=== PATIENT | male | born 1965 | race Caucasian/White ===

== ENCOUNTER 2018-07-28 06:19 | Observation (INO) | payer BC ==
[2018-07-28 06:47] LABS: Arterial Blood Carboxyhemoglob 1.9 % (0-1.5); Blood Gas Oxyhemoglobin 88.9 % (94-97); Blood O2 Saturation 91.5 % (92-98.5)
[2018-07-28] MEDS ORDERED: ALBUTEROL 2.5 MG/3 ML NEB SOL ONE (06:52)
[2018-07-28] MEDS ORDERED: predniSONE 20 MG TAB ONE ×2 (06:52→07:19)
[2018-07-28] MEDS ORDERED: IPRATROPIUM BROM 0.5MG/2.5ML ONE (06:52)
[2018-07-28] MEDS ORDERED: FAMOTIDINE 20 MG TAB ONE (06:52)
[2018-07-28] MEDS ORDERED: NA CHLORIDE 0.9% 1,000 ML ONE (06:52)
[2018-07-28 07:14] LABS: Absolute Lymphocytes (CBC) 1.1 K/uL (0.7-4.9); Absolute Monocytes 0.7 K/uL (0.1-1.3); Absolute Neutrophil 7.5 K/uL (1.8-8.0); Basophils % 0.5 % (0-1.3); Eosinophils % 2.6 % (0-4.4); Hematocrit 45.8 % (39.6-49.0); Lymphocytes % 11.6 % (15.3-44.8); MPV 9.4 fL (7.6-11.3); Monocytes % 7.6 % (3.3-12.3); RBC Red Blood Cell Count 4.78 M/uL (4.33-5.43)
[2018-07-28 07:17] LABS: Protime INR 1.08
[2018-07-28] MEDS ORDERED: MAGNESIUM SULFATE 1 gm IVPB 1 GM/100 ML BAG IV ONE (07:34)
[2018-07-28] MEDS ORDERED: MORPHINE 4 MG/ML SYR ONE (07:34)
[2018-07-28 08:06] LABS: ALT/SGPT 42 U/L (12-78); AST/SGOT 36 U/L (15-37); Albumin 3.5 g/dL (3.4-5.0); Alkaline Phosphatase 82 U/L (45-117); BUN Blood Urea Nitrogen 8 mg/dL (7-18); Bicarbonate 25 mmol/L (21-32); Bilirubin Direct 0.1 mg/dL (0-0.2); Bilirubin Total 0.5 mg/dL (0.2-1.0); Glucose Level 149 mg/dL (74-106); Magnesium 2.2 mg/dL (1.8-2.4); NT PRO-BNP 40 pg/mL (<125); Potassium 3.9 mmol/L (3.5-5.1); Protein, Total 7.2 g/dL (6.4-8.2); Sodium Level 136 mmol/L (136-145); Troponin (Emerg Dept Use Only) < 0.02 ng/mL (0.0-0.045)
[2018-07-28] MEDS ORDERED: FUROSEMIDE 20 MG/ 2ML VIAL ONE (09:03)
--- NOTE | 2018-07-28 09:15 | RAD REPORT ---
EXAM DESCRIPTION: CT - Chest For Pe Angio - 07/28/2018 8:52 am CLINICAL HISTORY: Cough and congestion/shortness of breath COMPARISON: None. TECHNIQUE: Dynamically enhanced axial 3 mm thick images of the chest were obtained during administra tion of <100> mL Isovue 370 IV contrast. Coronal and oblique reconstruction images were generated and reviewed. Exam utilizes a protocol for optimal evaluation of pulmonary arterial tree. Maximum intensity projections 3D imaging was utilized All CT scans are performed using dose optimization technique as appropriate and may include automated exposure control or mA/KV adjustment according to patient size. FINDINGS: A pulmonary embolus is not seen. A thoracic aortic aneurysm is not noted. A pleural effusion is not seen. A pericardial effusion is not seen. A lung consolidation is not present. Paraseptal emphysema. Minimal right basilar atelectasis IMPRESSION: Negative for a pulmonary embolism.
--- NOTE | 2018-07-28 10:05 | EDPHYS ---
Physician Documentation [facility] Name: Emory Lynn Age: 52 yrs Sex: Male : 1965 Arrival Date: 07/28/2018 Time: 06:22 Bed 4 Private MD: ED Physician Marcio Samaniego HPI: 07/28 06:38 This 52 yrs old Male presents to ER via Ambulatory with complaints of Cough, snw Breathing Difficulty. 06:38 The patient or guardian reports airway noise, cough, difficulty breathing. Onset: The snw symptoms/episode began/occurred suddenly, yesterday, and became worse last night. Severity of symptoms: At their worst the symptoms were severe, this morning. Associated signs and symptoms: The patient has no apparent associated signs or symptoms. It is unknown whether or not the patient has had similar symptoms in the past. The patient has not recently seen a physician, the patient's primary care provider is Dr. Dr. Dubon. hx of HTN and high cholesterol, no dx COPD but "I've smoked all my life". Historical: - Allergies: 06:36 No Known Allergies; tl2 - Home Meds: 06:36 Simvastatin Oral [Active]; BP med [Active]; tl2 - PMHx: 06:36 Hyperlipidemia; Hypertension; tl2 - Immunization history:: Adult Immunizations up to date. - Social history:: Smoking status: Patient uses tobacco products, smokes one pack cigarettes per day. - Ebola Screening: : No symptoms or risks identified at this time. ROS: 06:38 Constitutional: Negative for fever, chills, and weight loss, Eyes: Negative for injury, snw pain, redness, and discharge. 06:38 Neck: Negative for injury, pain, and swelling, Cardiovascular: Negative for chest pain, palpitations, and edema. 06:38 Abdomen/GI: Negative for abdominal pain, nausea, vomiting, diarrhea, and constipation, Back: Negative for injury and pain, : Negative for injury, bleeding, discharge, and swelling, MS/Extremity: Negative for injury and deformity, Skin: Negative for injury, rash, and discoloration, Neuro: Negative for headache, weakness, numbness, tingling, and seizure. 06:38 ENT: Positive for scratchy throat yesterday. 06:38 Respiratory: Positive for cough, dyspnea on exertion, shortness of breath, at rest. wheezing. Exam: 06:35 Head/Face: Normocephalic, atraumatic. Eyes: Pupils equal round and reactive to light, snw extra-ocular motions intact. Lids and lashes normal. Conjunctiva and sclera are non-icteric and not injected. Cornea within normal limits. Periorbital areas with no swelling, redness, or edema. ENT: Nares patent. No nasal discharge, no septal abnormalities noted. Tympanic membranes are normal and external auditory canals are clear. Oropharynx with no redness, swelling, or masses, exudates, or evidence of obstruction, uvula midline. Mucous membranes moist. Neck: Trachea midline, no thyromegaly or masses palpated, and no cervical lymphadenopathy. Supple, full range of motion without nuchal rigidity, or vertebral point tenderness. No Meningismus. Chest/axilla: Normal chest wall appearance and motion. Nontender with no deformity. No lesions are appreciated. 06:35 Back: No spinal tenderness. No costovertebral tenderness. Full range of motion. Skin: Warm, dry with normal turgor. Mottled color with no rashes, no lesions, and no evidence of cellulitis. MS/ Extremity: Pulses equal, no cyanosis. Neurovascular intact. Full, normal range of motion. Neuro: Awake and alert, GCS 15, oriented to person, place, time, and situation. Cranial nerves II-XII grossly intact. Motor strength 5/5 in all extremities. Sensory grossly intact. Cerebellar exam normal. Normal gait. 06:35 Constitutional: The patient appears alert, awake, anxious, obese. 06:35 Cardiovascular: Rate: tachycardic, Rhythm: regular, Pulses: no pulse deficits are appreciated, Edema: 1+ edema to level of left ankle, left foot, right ankle and right foot. 06:35 Respiratory: moderate respiratory distress is noted, Respirations: labored breathing, that is mild, accessory muscle usage, that is mild, prolonged exhalation, that is moderate, shallow respirations, that is moderate, tachypnea, Breath sounds: + upper airway congestion. wheezing: expiratory that is moderate, is heard diffusely, headbutted by cow 2 days ago, knocked to ground, tenderness to left lateral chest at mid axillary line. 06:35 Abdomen/GI: Inspection: obese Bowel sounds: normal, Palpation: abdomen is soft and non-tender. Vital Signs: 06:36 BP 170 / 83; Pulse 97; Resp 22; Temp 98.1(O); Pulse Ox 91% on 3 lpm NC; Weight 102.06 tl2 kg; Height 6 ft. 4 in. (193.04 cm); Pain 0/10; 07:00 BP 151 / 84; Pulse 96; Resp 22; Pulse Ox 93% on 3 lpm NC; jb1 08:00 BP 127 / 68; Pulse 87; Resp 20; Pulse Ox 92% on 3 lpm NC; jb1 09:10 BP 145 / 75; Pulse 94; Resp 21; Pulse Ox 92% on 4 lpm NC; jb1 10:30 BP 141 / 69; Pulse 79; Resp 24 S; Pulse Ox 94% on 4 lpm NC; jl7 11:30 BP 141 / 81; Pulse 83; Resp 22; Pulse Ox 92% on 4 lpm NC; jl7 12:31 BP 133 / 66; Pulse 86; Resp 22; Pulse Ox 93% on 4 lpm NC; jl7 06:36 Body Mass Index 27.39 (102.06 kg, 193.04 cm) tl2 MDM: 06:31 Patient medically screened. snw 10:04 Data reviewed: vital signs, nurses notes. Data interpreted: Pulse oximetry: on 2L(s) snw per nasal canula, is 92 %. Interpretation: hypoxia. Plan: O2 by NC applied. Counseling: I had a detailed discussion with the patient and/or guardian regarding: the historical points, exam findings, and any diagnostic results supporting the discharge/admit diagnosis, the presence of at least one elevated blood pressure reading (>120/80) during this emergency department visit, lab results, radiology results, the need for further work-up and treatment in the hospital. Physician consultation: Quynh Cason MD was called at 09:30, was contacted at 09:30, regarding admission, to the telemetry unit. 07/28 06:30 Order name: Basic Metabolic Panel; Complete Time: 08:20 snw 07/28 06:30 Order name: CBC with Diff; Complete Time: 07:16 snw 07/28 06:30 Order name: LFT's; Complete Time: 08:20 snw 07/28 06:30 Order name: Magnesium; Complete Time: 08:20 snw 07/28 06:30 Order name: NT PRO-BNP; Complete Time: 08:20 snw 07/28 06:30 Order name: PT-INR; Complete Time: 07:23 snw 07/28 06:30 Order name: Troponin (emerg Dept Use Only); Complete Time: 08:20 snw 07/28 06:30 Order name: XRAY Chest (1 view); Complete Time: 10:32 snw 07/28 06:30 Order name: Procalcitonin; Complete Time: 08:24 snw 07/28 06:30 Order name: Lactate; Complete Time: 08:20 snw 07/28 06:30 Order name: ABG snw 07/28 06:30 Order name: Flu; Complete Time: 08:20 snw 07/28 06:30 Order name: Blood Culture Adult (2) snw 07/28 06:48 Order name: ABG Arterial Blood Gas; Complete Time: 06:50 EDMS 07/28 06:30 Order name: EKG; Complete Time: 06:32 snw 07/28 06:30 Order name: Cardiac monitoring; Complete Time: 06:40 snw 07/28 06:30 Order name: EKG - Nurse/Tech; Complete Time: 07:38 snw 07/28 06:30 Order name: IV Saline Lock; Complete Time: 06:49 snw 07/28 06:30 Order name: Labs collected and sent; Complete Time: 06:49 snw 07/28 06:30 Order name: O2 Per Protocol; Complete Time: 06:49 snw 07/28 06:30 Order name: O2 Sat Monitoring; Complete Time: 06:49 snw 07/28 07:26 Order name: CT Chest For PE Angio; Complete Time: 09:21 snw Administered Medications: 06:48 Drug: NS 0.9% 1000 ml Route: IV; Rate: 125 ml/hr; Site: right antecubital; tl2 12:34 Follow up: IV Status: Infusion continued upon admission jl7 06:49 Drug: Albuterol - atroVENT (3:1) (2.5 mg - 0.5 mg) 3 ml Route: Nebulizer; tl2 07:15 Follow up: Response: No adverse reaction; No change in condition jl7 07:05 Drug: predniSONE 60 mg Route: PO; tl2 09:24 Follow up: Response: No adverse reaction jl7 07:05 Drug: Pepcid 20 mg Route: PO; tl2 08:00 Follow up: Response: No adverse reaction jl7 07:30 Drug: morphine 4 mg Route: IVP; Site: right antecubital; jl7 08:00 Follow up: Response: No adverse reaction; Marked relief of symptoms jl7 07:36 Drug: Magnesium Sulfate 1 grams Route: IVPB; Infused Over: 1 hrs; Site: right jl7 antecubital; 08:38 Follow up: IV Status: Completed infusion aa5 08:57 Drug: Lasix 20 mg Route: IVP; Site: right antecubital; aa5 10:00 Follow up: Response: No adverse reaction jl7 Disposition: 07/28/18 10:04 Hospitalization ordered by Quynh Cason for Observation. Preliminary diagnosis are Chronic obstructive pulmonary disease, unspecified, Hypoxemia. - Bed requested for Telemetry/MedSurg (observation). - Status is Observation. jl7 - Condition is Stable. - Problem is new. - Symptoms are unchanged. UTI on Admission? No Addendum: 08/07/2018 11:16 Co-signature as Attending Physician, Marcio Samaniego MD I agree with the assessment and c hodge plan of care. Signatures: Dispatcher [employer] EDChacha Barlow RN Marcio Pedraza MD MD cha Therrien, Shelly, MOTOR AND CONTR[employer]S TESTER-C [employer] TESTER-Csnw Melodie Sanchez, RN RN aa5 Tyra Young, RN RN tl2 Iván Smith RN RN jl7 Corrections: (The following items were deleted from the chart) 07/28 12:26 10:04 Hospitalization Ordered by Quynh Cason MD for Observation. Preliminary dw diagnosis is Chronic obstructive pulmonary disease, unspecified; Hypoxemia. Bed requested for Telemetry/MedSurg (observation). Status is Observation. Condition is Stable. Problem is new. Symptoms are unchanged. UTI on Admission? No. snw 13:50 12:26 07/28/2018 10:04 Hospitalization Ordered by Quynh Cason MD for Observation. jl7 Preliminary diagnosis is Chronic obstructive pulmonary disease, unspecified; Hypoxemia. Bed requested for Telemetry/MedSurg (observation). Status is Observation. Condition is Stable. Problem is new. Symptoms are unchanged. UTI on Admission? No. dw
--- NOTE | 2018-07-28 10:05 | ER ---
Nurse's Notes [facility] Name: Emory Lynn Age: 52 yrs Sex: Male : 1965 Arrival Date: 07/28/2018 Time: : Bed 4 Private MD: Diagnosis: Chronic obstructive pulmonary disease, unspecified;Hypoxemia Presentation: 07/28 06:33 Presenting complaint: Patient states: cough, body aches, and congestion started tl2 yesterday afternoon, breathing difficulty and shortness of breath started around 0400 this morning. O2 86% on RA. Transition of care: patient was not received from another setting of care. Onset of symptoms was July 27, 2018 at 12:00. Risk Assessment: Do you want to hurt yourself or someone else? Patient reports no desire to harm self or others. Initial Sepsis Screen: Does the patient meet any 2 criteria? No. Patient's initial sepsis screen is negative. Does the patient have a suspected source of infection? No. Patient's initial sepsis screen is negative. Care prior to arrival: None. 06:33 Method Of Arrival: Ambulatory tl2 06:33 Acuity: JENISE 2 tl2 Triage Assessment: 06:36 General: Appears in no apparent distress. uncomfortable, Behavior is calm, cooperative, tl2 appropriate for age. Pain: Denies pain. Neuro: Level of Consciousness is awake, alert, obeys commands, Oriented to person, place, time, situation. Cardiovascular: Denies chest pain. Respiratory: Reports shortness of breath cough that is labored breathing Respiratory effort is even, labored, using tripod position, Breath sounds with crackles Breath sounds with rales Onset: The symptoms/episode began/occurred gradually, the patient has moderate shortness of breath. GI: No signs and/or symptoms were reported involving the gastrointestinal system. : No signs and/or symptoms were reported regarding the genitourinary system. Derm: Skin is pink, warm \T\ dry. Historical: - Allergies: 06:36 No Known Allergies; tl2 - Home Meds: 06:36 Simvastatin Oral [Active]; BP med [Active]; tl2 - PMHx: 06:36 Hyperlipidemia; Hypertension; tl2 - Immunization history:: Adult Immunizations up to date. - Social history:: Smoking status: Patient uses tobacco products, smokes one pack cigarettes per day. - Ebola Screening: : No symptoms or risks identified at this time. Screenin:38 Abuse screen: Denies threats or abuse. Nutritional screening: No deficits noted. tl2 Tuberculosis screening: No symptoms or risk factors identified. Fall Risk None identified. Assessment: 06:39 Cardiovascular: Rhythm is sinus rhythm. tl2 06:39 Respiratory: Airway is patent. tl2 06:39 General: see triage assessment. tl2 07:00 General: Appears distressed, uncomfortable, Behavior is cooperative, appropriate for jl7 age, anxious. Pain: Denies pain. Neuro: Level of Consciousness is awake, alert, obeys commands, Oriented to person, place, time, situation. Cardiovascular: Heart tones present Patient's skin is warm and dry. Rhythm is sinus rhythm. Respiratory: Airway is patent Respiratory effort is even, labored, Respiratory pattern is symmetrical, tachypnea Breath sounds are coarse bilaterally. Breath sounds with wheezes bilaterally. GI: No signs and/or symptoms were reported involving the gastrointestinal system. : No signs and/or symptoms were reported regarding the genitourinary system. EENT: No signs and/or symptoms were reported regarding the EENT system. Derm: Skin is pink, warm \T\ dry. Musculoskeletal: No signs and/or symptoms reported regarding the musculoskeletal system. 08:00 Reassessment: Patient appears in no apparent distress at this time. Patient and/or jl7 family updated on plan of care and expected duration. Pain level reassessed. Patient is alert, oriented x 3, equal unlabored respirations, skin warm/dry/pink. Patient states feeling better. Patient states symptoms have improved. 09:00 Reassessment: Patient appears in no apparent distress at this time. No changes from jl7 previously documented assessment. Patient and/or family updated on plan of care and expected duration. Pain level reassessed. Patient is alert, oriented x 3, equal unlabored respirations, skin warm/dry/pink. 10:00 Reassessment: Patient appears in no apparent distress at this time. No changes from jl7 previously documented assessment. Patient and/or family updated on plan of care and expected duration. Pain level reassessed. Patient is alert, oriented x 3, equal unlabored respirations, skin warm/dry/pink. Patient denies pain at this time. 10:55 Reassessment: Patient appears in no apparent distress at this time. Patient and/or jl7 family updated on plan of care and expected duration. Pain level reassessed. Patient is alert, oriented x 3, equal unlabored respirations, skin warm/dry/pink. 12:00 Reassessment: No changes from previously documented assessment. Patient and/or family jl7 updated on plan of care and expected duration. Pain level reassessed. Patient is alert, oriented x 3, equal unlabored respirations, skin warm/dry/pink. assisted pt to bathroom. Vital Signs: 06:36 BP 170 / 83; Pulse 97; Resp 22; Temp 98.1(O); Pulse Ox 91% on 3 lpm NC; Weight 102.06 tl2 kg; Height 6 ft. 4 in. (193.04 cm); Pain 0/10; 07:00 BP 151 / 84; Pulse 96; Resp 22; Pulse Ox 93% on 3 lpm NC; jb1 08:00 BP 127 / 68; Pulse 87; Resp 20; Pulse Ox 92% on 3 lpm NC; jb1 09:10 BP 145 / 75; Pulse 94; Resp 21; Pulse Ox 92% on 4 lpm NC; jb1 10:30 BP 141 / 69; Pulse 79; Resp 24 S; Pulse Ox 94% on 4 lpm NC; jl7 11:30 BP 141 / 81; Pulse 83; Resp 22; Pulse Ox 92% on 4 lpm NC; jl7 12:31 BP 133 / 66; Pulse 86; Resp 22; Pulse Ox 93% on 4 lpm NC; jl7 06:36 Body Mass Index 27.39 (102.06 kg, 193.04 cm) tl2 ED Course: 06:22 Patient arrived in ED. ag3 06:28 Dolly Castillo FNP-C is PHCP. snw 06:28 Marcio Samaniego MD is Attending Physician. snw 06:34 Triage completed. tl2 06:36 Arm band placed on right wrist. tl2 06:38 Patient has correct armband on for positive identification. Bed in low position. Call tl2 light in reach. Side rails up X 1. Adult w/ patient. 06:38 Inserted saline lock: 20 gauge in right antecubital area, using aseptic technique. tl2 Blood collected. placed by basil Baldwin. 07:00 pvc monitor on. Pulse ox on. NIBP on. jl7 07:00 Initial lab(s) drawn, by ED staff, sent to lab. jl7 07:06 X-ray completed. Portable x-ray completed in exam room. Patient tolerated procedure sg4 well. 07:07 XRAY Chest (1 view) In Process Unspecified. EDMS 07:22 Iván Smith RN is Primary Nurse. jl7 08:51 CT completed. Patient moved to CT via wheelchair. Patient moved back from CT. bq 08:52 CT Chest For PE Angio In Process Unspecified. EDMS 10:02 Quynh Cason MD is Hospitalizing Provider. snw 13:47 No provider procedures requiring assistance completed. Patient admitted, IV remains in jl7 place. intact, No redness/swelling at site. Administered Medications: 06:48 Drug: NS 0.9% 1000 ml Route: IV; Rate: 125 ml/hr; Site: right antecubital; tl2 12:34 Follow up: IV Status: Infusion continued upon admission jl7 06:49 Drug: Albuterol - atroVENT (3:1) (2.5 mg - 0.5 mg) 3 ml Route: Nebulizer; tl2 07:15 Follow up: Response: No adverse reaction; No change in condition jl7 07:05 Drug: predniSONE 60 mg Route: PO; tl2 09:24 Follow up: Response: No adverse reaction jl7 07:05 Drug: Pepcid 20 mg Route: PO; tl2 08:00 Follow up: Response: No adverse reaction jl7 07:30 Drug: morphine 4 mg Route: IVP; Site: right antecubital; jl7 08:00 Follow up: Response: No adverse reaction; Marked relief of symptoms jl7 07:36 Drug: Magnesium Sulfate 1 grams Route: IVPB; Infused Over: 1 hrs; Site: right jl7 antecubital; 08:38 Follow up: IV Status: Completed infusion aa5 08:57 Drug: Lasix 20 mg Route: IVP; Site: right antecubital; aa5 10:00 Follow up: Response: No adverse reaction jl7 Outcome: 10:04 Decision to Hospitalize by Provider. snw 13:48 Admitted to Med/surg accompanied by tech, via wheelchair, room 224, with oxygen, with [facility] chart, Report called to JORGE De Los Santos 13:49 Condition: stable jl7 13:49 Discharge instructions given to patient, Instructed on the need for admit, Demonstrated understanding of instructions. 13:50 Patient left the ED. jl7 Signatures: Dispatcher [employer] EDLaurent Moreno jb1 Dolly Castillo, DOUGHNUT BATTER MIXER-C DOUGHNUT BATTER MIXER-Claudiaw Mikaela Odom Audri, RN RN aa5 Tyra Young RN RN tl2 Iván Smith RN RN jl7 Beth Manrique3 Vira Yi 4 Corrections: (The following items were deleted from the chart) 09:18 09:10 BP 145 / 75; Pulse 94bpm; Resp 21bpm; Pulse Ox 92% 3 lpm Nasal Cannula; jb1 jb1
--- NOTE | 2018-07-28 10:30 | RAD REPORT ---
[facility] CLINICAL HISTORY: Chest pain COMPARISON: 2014 FINDINGS: The lungs are hyperaerated consistent COPD. Minimal right basilar atelectasis. Left lung appears clear. The heart is normal size
--- NOTE | 2018-07-28 12:26 | P.HP ---
Certification for Inpatient Patient admitted to: Observation With expected LOS: <2 Midnights Patient will require the following post-hospital care: None Practitioner: I am a practitioner with admitting privileges, knowledge of patient current condition, hospital course, and medical plan of care. Services: Services provided to patient in accordance with Admission requirements found in Title 42 Section 412.3 of the Code of Federal Regulations Patient History Date of Service: 07/28/18 Reason for admission: SOB History of Present Illness: 52 y/o M with significant PMHx presented to ER with SOB x 3 days. Progressively got worse and now with Tachypenia and Hypoxia. C/o Nasal congestion and Chest Congestion. Non productive cough. + smoking. No diagnosis of COPD and does not take medication. Denies Fever, chills or any other symptoms. Allergies No Known Allergies Allergy (Unverified 07/16/12 05:13) Home medications list reviewed: Yes - Past Medical/Surgical History Has patient received pneumonia vaccine in the past: Yes Diabetic: No -: COPD Physical Examination - Studies Laboratory Data (last 24 hrs) 07/28/18 07:33: Sodium 136, Potassium 3.9, BUN 8, Creatinine 0.61, Glucose 149 H , Magnesium 2.2, Total Bilirubin 0.5, AST 36, ALT 42, Alkaline Phosphatase 82 07/28/18 06:54: PT 12.8 H, INR 1.08 07/28/18 06:54: WBC 9.7, Hgb 15.7, Hct 45.8, Plt Count 164 Microbiology Data (last 24 hrs): 07/28/18 07:15 Nasopharnyx Influenza Type A Antigen Screen - Final 07/28/18 07:15 Nasopharnyx Influenza Type B Antigen Screen - Final Assessment and Plan - Problems (Diagnosis) (1) COPD exacerbation Current Visit: Yes Status: Acute Plan: COPD excerbation. New diagnosis of COPD. Not on medication -Duonebs, Steriods and NC -Smoking cessation provided -Mucinex for nasal congestion (2) Tobacco abuse Current Visit: Yes Status: Acute Plan: Smoking Cessation provided > 10 mins (3) Obesity Current Visit: Yes Status: Chronic Qualifiers: Obesity type: due to excess calories Obesity classification: adult class 2 (BMI 35 - 39.9) Serious obesity comorbidity presence: without serious comorbidity Body mass index: unspecified BMI Qualified Code(s): E66.09 - Other obesity due to excess calories (4) Struck by cow, initial encounter Current Visit: Yes Status: Acute - Plan Admit to Med surg for COPD exacerbation not on treatment outpt. Discharge Plan: Home Plan to discharge in: 48 Hours - Advance Directives Does patient have a Living Will: No Does patient have a Durable POA for Healthcare: No - Code Status/Comfort Care Code Status Assessed: Yes Critical Care: No
[2018-07-28] MEDS ORDERED: ONDANSETRON 4 MG/2 ML VIAL IV PRN (14:47)
[2018-07-28] MEDS ORDERED: ACETAMINOPHEN 500 MG TAB PO PRN (14:47)
[2018-07-28] MEDS: IPRATROPIUM BROM 0.5MG/2.5ML NEB SCH ×2 (15:00→19:37)
[2018-07-28] MEDS: ALBUTEROL 2.5 MG/3 ML NEB SOL NEB SCH ×2 (15:00→19:38)
[2018-07-28] MEDS: GUAIFENESIN 600 MG SA TAB PO SCH ×2 (15:26→20:42)
[2018-07-28] MEDS: METHYLPREDNISOLONE 125 MG INJ IV SCH ×2 (15:33→17:40)
[2018-07-28] MEDS ORDERED: INFLUENZA VACCINE (for 3y+) 0.5 ML DOSE IMVAC ONE (16:00)
[2018-07-28 16:38] VITALS: BMI 28.5
[2018-07-28 17:36] LABS: Urine Appearance CLEAR; Urine Bilirubin NEGATIVE (NEG); Urine Blood NEGATIVE (NEG); Urine Color YELLOW; Urine Glucose 2+ (NEG); Urine Protein NEGATIVE (NEG); Urine Specific Gravity >=1.030 (1.005-1.030); Urine pH 6.5 (5.0-7.0)
[2018-07-28 19:12] LABS: Urine Microscopic Reflex NO UMIC
[2018-07-29] MEDS: METHYLPREDNISOLONE 125 MG INJ IV SCH ×3 (00:07→11:43)
[2018-07-29] MEDS: ALBUTEROL 2.5 MG/3 ML NEB SOL NEB SCH ×2 (02:00→07:45)
[2018-07-29] MEDS: IPRATROPIUM BROM 0.5MG/2.5ML NEB SCH ×2 (02:00→07:45)
[2018-07-29 05:52] LABS: Absolute Lymphocytes (CBC) 0.6 K/uL (0.7-4.9); Absolute Monocytes 0.4 K/uL (0.1-1.3); Absolute Neutrophil 11.2 K/uL (1.8-8.0); Basophils % 0.2 % (0-1.3); Lymphocytes % 5.1 % (15.3-44.8); MPV 9.4 fL (7.6-11.3); Monocytes % 2.9 % (3.3-12.3); RBC Red Blood Cell Count 4.55 M/uL (4.33-5.43)
[2018-07-29 06:06] LABS: BUN Blood Urea Nitrogen 13 mg/dL (7-18); Bicarbonate 27 mmol/L (21-32); Glucose Level 186 mg/dL (74-106); Sodium Level 135 mmol/L (136-145)
[2018-07-29] MEDS: GUAIFENESIN 600 MG SA TAB PO SCH (08:43)
--- NOTE | 2018-07-29 10:25 | P.CNS ---
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 tickle in his throat bodyaches worsening shortness of breath ended up here in the emergency room no prior history of obstructive airways disease no prior coronary artery disease he has been treated for hypertension and hyperlipidemia denies any baseline shortness of breath or chest pain doing much better Allergies No Known Allergies Allergy (Verified 07/28/18 14:54) Home Medications: Amlodipine [Norvasc*] 1 tab PO DAILY 07/28/18 Montelukast [Singulair*] 1 tab PO DAILY 07/28/18 Simvastatin 1 tab PO DAILY 07/28/18 hydroCHLOROthiazide [Hydrochlorothiazide] 1 tab PO DAILY 07/28/18 - Past Medical/Surgical History Diabetic: No -: HTN -: neck sx -: rotator calf sx -: knee sx - Family History Mother Notes: breast cancer Father Medical History: Diabetes - Social History Smoking Status: Current every day smoker Alcohol use: Yes CD- Drugs: No Caffeine use: Yes Place of Residence: Home Review of Systems 10-point ROS is otherwise unremarkable Physical Examination Temp Pulse Resp BP Pulse Ox 97.5 F 80 20 141/72 H 96 07/29/18 08:00 07/29/18 08:00 07/29/18 08:00 07/29/18 08:00 07/29/18 08:00 General: Alert, Oriented x3 HEENT: Atraumatic Neck: Supple Respiratory: Clear to auscultation bilaterally Cardiovascular: No edema, Regular rate/rhythm Gastrointestinal: Normal bowel sounds, Soft and benign - Problems (1) COPD exacerbation Current Visit: Yes Status: Acute Plan: Patient is 52 years of age admitted with acute dyspnea possible COPD exacerbation CT scan of the chest did not show any evidence of pulmonary embolism are pneumonia he does have a paraseptal emphysema in the upper lobes patient has been instructed to quit smoking labs reviews chemistries unremarkable check room air pulse ox patient can be discharged home low-dose prednisone 10 mg twice a day for 5 days and use a bronchodilator on a p.r.n. basis to follow up with me in 2-4 weeks will arrange for a the patient to have outpatient pulmonary function testing including yearly CT scan off through the ages 53 for lung cancer screening the console to stops smoking
[2018-07-29 12:05] VITALS: O2SAT 95
[2018-07-29] MEDS ORDERED: INFLUENZA VACCINE (for 3y+) 0.5 ML DOSE IMVAC ONE (13:00)
[2018-07-29 13:13] VITALS: BP 154/83; TEMP 97.6
--- NOTE | 2018-07-29 14:31 | P.DS ---
Admission Date: 07/28/18 Discharge Date: 07/29/18 Disposition: ROUTINE DISCHARGE Discharge Condition: GOOD Reason for Admission: SOB - Problems (1) COPD exacerbation Current Visit: Yes Status: Acute (2) Tobacco abuse Current Visit: Yes Status: Acute (3) Obesity Current Visit: Yes Status: Chronic Qualifiers: Obesity type: due to excess calories Obesity classification: adult class 2 (BMI 35 - 39.9) Serious obesity comorbidity presence: without serious comorbidity Body mass index: unspecified BMI Qualified Code(s): E66.09 - Other obesity due to excess calories (4) Struck by cow, initial encounter Current Visit: Yes Status: Acute Brief History of Present Illness: 52 y/o M with significant PMHx presented to ER with SOB x 3 days. Progressively got worse and now with Tachypenia and Hypoxia. C/o Nasal congestion and Chest Congestion. Non productive cough. + smoking. No diagnosis of COPD and does not take medication. Denies Fever, chills or any other symptoms. Hospital Course: Overall during the hospital stay patient remained stable Patient was initially admitted to the hospital for COPD exacerbation. Was kept due on duo nebs, steroids, oxygen while here in the hospital. The Dr Johnson from pulmonology was consulted who recommended the patient can get bronchodilators to be taken at home along with p.r.n. inhalers. The patient was prescribed p.r.n. inhalers along with Symbicort to be taken at home. Was also prescribed prednisone to be taken for next 5 days. Patient then was discharged home under stable condition once there was improvement in his breathing and was able to wean off of oxygen. Patient did mention he would not use oxygen even if he needs it at home. Patient states that he will follow up with Dr. johnson outpatient. Patient was educated extensively on the disease process and the need to continue taking his inhalers as prescribed along with the steroids. Vital Signs/Physical Exam: Temp Pulse Resp BP Pulse Ox 97.6 F 93 H 17 154/83 H 88 L 07/29/18 12:00 07/29/18 12:00 07/29/18 12:00 07/29/18 12:00 07/29/18 12:00 General: Alert, In no apparent distress HEENT: Atraumatic, PERRLA, EOMI Neck: Supple, JVD not distended Respiratory: Clear to auscultation bilaterally, Normal air movement Cardiovascular: Regular rate/rhythm, Normal S1 S2 Gastrointestinal: Normal bowel sounds, No tenderness Musculoskeletal: No tenderness Integumentary: No rashes Neurological: Normal speech, Normal tone, Normal affect Lymphatics: No axilla or inguinal lymphadenopathy Laboratory Data at Discharge: WBC 12.2 K/uL (4.3-10.9) H D 07/29/18 05:12 Hgb 15.0 g/dL (13.6-17.9) 07/29/18 05:12 Hct 44.0 % (39.6-49.0) 07/29/18 05:12 Plt Count 170 K/uL (152-406) 07/29/18 05:12 PT 12.8 SECONDS (9.5-12.5) H 07/28/18 06:54 INR 1.08 07/28/18 06:54 Sodium 135 mmol/L (136-145) L 07/29/18 05:12 Potassium 4.0 mmol/L (3.5-5.1) 07/29/18 05:12 BUN 13 mg/dL (7-18) 07/29/18 05:12 Creatinine 0.61 mg/dL (0.55-1.3) 07/29/18 05:12 Glucose 186 mg/dL (74-106) H 07/29/18 05:12 Magnesium 2.2 mg/dL (1.8-2.4) 07/28/18 07:33 Total Bilirubin 0.5 mg/dL (0.2-1.0) 07/28/18 07:33 AST 36 U/L (15-37) 07/28/18 07:33 ALT 42 U/L (12-78) 07/28/18 07:33 Alkaline Phosphatase 82 U/L (45-117) 07/28/18 07:33 Home Medications: Amlodipine [Norvasc*] 1 tab PO DAILY 07/28/18 Montelukast [Singulair*] 1 tab PO DAILY 07/28/18 Simvastatin 1 tab PO DAILY 07/28/18 hydroCHLOROthiazide [Hydrochlorothiazide] 1 tab PO DAILY 07/28/18 Budesonide/Formoterol Fumarate [Symbicort 80-4.5 Mcg Inhaler] 2 puff IH BID #1 hfa.aer.ad 07/29/18 predniSONE [Deltasone*] 10 mg PO BID #10 tab 07/29/18 New Medications: Budesonide/Formoterol Fumarate [Symbicort 80-4.5 Mcg Inhaler] 2 puff IH BID #1 hfa.aer.ad predniSONE [Deltasone*] 10 mg PO BID #10 tab Diet: Regular Activity: Ad cait Followup: Helio Suarez MD [ACTIVE - CAN ADMIT] - 1 Week
--- NOTE | 2018-07-29 17:29 | EKG ---
Test Date: 2018-07-28 Test Time: 07:16:02 Pattern Stamper: DAVEY MEASUREMENT RESULTS: Intervals: Rate: 100 NJ: 142 QRSD: 94 QT: 378 QTc: 487 Doyle: P: 72 NJ: 142 QRS: 69 T: 70 INTERPRETIVE STATEMENTS: Normal sinus rhythm Prolonged QT Abnormal ECG Compared to ECG 10/04/2010 05:38:14 Prolonged QT interval now present Incomplete right bundle-branch block no longer present Electronically Signed On 07-29-18 17:18:21 QUALITY CONTROL OPERATOR by Pacheco Palmer
== END 2018-07-29 14:00 | disposition home or self-care (01) ==
LOC: ER 06:19 → ERHOLD 11:56 → 2ND 13:44
PROVIDERS: ADMIT Family Medicine; ATTEND Family Medicine
DX: J44.1 Chronic obstructive pulmonary disease with (acute) exacerbation (principal); I10 Essential (primary) hypertension; F17.210 Nicotine dependence, cigarettes, uncomplicated; E66.9 Obesity, unspecified; Z68.28 Body mass index [BMI] 28.0-28.9, adult; Z23 Encounter for immunization
CPT/HCPCS: 36415; 71045; 71275; 80048; 80076; 81003; 82805; 82962; 83605; 83735; 83880; 84145; 84484; 85025; 85610; 87040; 87804; 93005; 94640; 94760; 96361; 96365; 96375; 99285; G0008; G0378; J1940; J2930; J3475; J7030; J7512; Q2035; Q9967

== ENCOUNTER 2022-05-28 13:02 | Inpatient (IN) | payer BC ==
--- OUTSIDE RECORDS SUMMARY | 2022-05-28 13:08 | XMS REPORT | Continuity of Care Document ---
:1965 Author Organization [facility] t Address [address] [place] [address] Care Team Providers Name Role Phone Sirena Dubon Attending Clinician Unavailable Payers Payer Name Policy Type Policy Number Effective Date Expiration Date S shawanda [employer] 6 [id number] 2021 Common Spiri t [employer] of 00:00:[address] - [facility] Problems Condition Condition Condition Status Onset Resolution Last Treating Co mments Source Name Details Category Date Date Treatment Clinician Date Acute tic Acute tic Problem Active Com mon disorder disorder Spirit - [facility] [id number] Essential Problem Active Comm on hypertensi Spirit on [facility] [id number] Cigarette Problem Active Comm on nicotine Spirit dependence - [facility] [id number] Pure Problem Active Common hyperchole Spirit sterolemia - [facility] [id number] Simple Problem Active Common chronic Spirit bronchitis [facility] [place] [id number] Encounter Problem Active Com mon for Spirit general - [facility] adult [facility] examinatio Medica l n with Center abnormal findings [id number] Controlled Problem Active Co mmon type 2 Spirit diabetes - [facility] mellitus [facility] complicati Medica l on, Center without long-term current use of insulin Gastroesop Gastroesop Problem Active C ommon hageal hageal Spirit reflux reflux - [facility] disease [facility] Medica l not Center specified [id number] Difficulty Problem Active Co mmon sleeping [facility] [id number] Obesity, Problem Active Comm on morbid, Spirit BMI [facility] 40.0-49.9 [facility] [id number] Wheezing Problem Active Commo n [facility] History of History of Problem Active C ommon polyp of colon [facility] colon polyps [facility] Allergic Non-season Problem Active Com mon rhinitis al [facility] allergic - [facility], [facility] [id number] Chronic Problem Active Comm on obstructiv [facility] e [facility] pulmonary [facility] with Medical (acute) Center lower respirator y infection [id number] Benign Problem Active Commo n prostatic [facility] hyperplasi [facility] a with [facility] urinary Medical tract Center symptoms [id number] COPD Problem Active Common exacerbati [facility] on [facility] Allergies, Adverse Reactions, Alerts This patient has no known allergies or adverse reactions. Social History Social Habit Start Date Stop Date Quantity Comments Source History of Tobacco Use Co mmon [facility] Sex Assigned At Com mon [facility] Smoking Status Start Date Stop Date Source Former Smoker 2021-10-04 00:00:00 2021-10-04 00:00:00 [facility] [place] Medications Ordered Filled Start Stop Current Ordering Indication Dosage Frequency Signature Comments Components Source Medication Medication Date Date Medication? Clinician (SIG) Name Name Clotrimazol Clotrimazol 2020-08- No TID Clotrimazo e 10 MG e 10 MG 08-17 le 10 MG 00:00: 00:00 00 :00 Vibramycin Vibramycin 2020- No 1{capsu QD Vibramycin 100 MG 100 MG 04-09 le} 100 MG 00:00: 00:00 00 :00 Kenalog Kenalog No 40mg Common (Triamcinol (Triamcinol 8-31 S pirit one) one) 00:00: - [facility]I 00 [facility] DuoNeb DuoNeb No 3{ml_as QID DuoNeb 0.5-2.5 (3) 0.5-2.5 (3) 7-07 _needed 0.5-2.5 MG/3ML MG/3ML 00:00: } (3) MG/3ML 00 DuoNeb DuoNeb No 3{ml_as QID DuoNeb Comm on 0.5-2.5 (3) 0.5-2.5 (3) 7-07 _needed 0.5-2.5 Spirit MG/3ML MG/3ML 00:00: } (3) MG/3ML - C HI 00 [facility] DuoNeb DuoNeb No 3{ml_as QID DuoNeb 0.5-2.5 (3) 0.5-2.5 (3) 7-07 _needed 0.5-2.5 MG/3ML MG/3ML 00:00: } (3) MG/3ML 00 DuoNeb DuoNeb No 3{ml_as QID DuoNeb 0.5-2.5 (3) 0.5-2.5 (3) 7-07 _needed 0.5-2.5 MG/3ML MG/3ML 00:00: } (3) MG/3ML 00 DuoNeb DuoNeb No 3{ml_as QID DuoNeb 0.5-2.5 (3) 0.5-2.5 (3) 7-07 _needed 0.5-2.5 MG/3ML MG/3ML 00:00: } (3) MG/3ML 00 DuoNeb DuoNeb No 3{ml_as QID DuoNeb 0.5-2.5 (3) 0.5-2.5 (3) 7-07 _needed 0.5-2.5 MG/3ML MG/3ML 00:00: } (3) MG/3ML 00 DuoNeb DuoNeb No 3{ml_as QID DuoNeb 0.5-2.5 (3) 0.5-2.5 (3) 7-07 _needed 0.5-2.5 MG/3ML MG/3ML 00:00: } (3) MG/3ML 00 Doxycycline Doxycycline 2021-0 No 1{capsu BID Doxycyclin Monohydrate Monohydrate 6-16 le} e 100 MG 100 MG 00:00: Monohydrat 00 e 100 MG predniSONE predniSONE 2020-0 No QD predniSONE 10 MG 10 MG 6-16 10 MG 00:00: 00 Doxycycline Doxycycline 0 No 1{capsu BID Doxycyclin Monohydrate Monohydrate 6-16 le} e 100 MG 100 MG 00:00: Monohydrat 00 e 100 MG predniSONE predniSONE 2020-0 No QD predniSONE 10 MG 10 MG 6-16 10 MG 00:00: 00 Doxycycline Doxycycline 0 No 1{capsu BID Doxycyclin Monohydrate Monohydrate 6-16 le} e 100 MG 100 MG 00:00: Monohydrat 00 e 100 MG predniSONE predniSONE 0 No QD predniSONE 10 MG 10 MG 6-16 10 MG 00:00: 00 Doxycycline Doxycycline 0 No 1{capsu BID Doxycyclin Monohydrate Monohydrate 6-16 le} e 100 MG 100 MG 00:00: Monohydrat 00 e 100 MG predniSONE predniSONE 2020-0 No QD predniSONE 10 MG 10 MG 6-16 10 MG 00:00: 00 predniSONE predniSONE 2020-0 No QD predniSONE 10 MG 10 MG 6-16 10 MG 00:00: 00 Doxycycline Doxycycline 0 No 1{capsu BID Doxycyclin Monohydrate Monohydrate 6-16 le} e 100 MG 100 MG 00:00: Monohydrat 00 e 100 MG predniSONE predniSONE 2020-0 No QD predniSONE Common 10 MG 10 MG 6-16 10 MG Spirit 00:00: - [facility] 00 [facility] Doxycycline Doxycycline No 1{capsu BID Doxycyclin Common Monohydrate Monohydrate 6-16 le} e S pirit 100 MG 100 MG 00:00: Monohydrat - C HI 00 e 100 MG [facility] predniSONE predniSONE 2020-0 No QD predniSONE 10 MG 10 MG 6-16 10 MG 00:00: 00 Doxycycline Doxycycline 0 No 1{capsu BID Doxycyclin Monohydrate Monohydrate 6-16 le} e 100 MG 100 MG 00:00: Monohydrat 00 e 100 MG Doxycycline Doxycycline 0 No 1{capsu BID Doxycyclin Monohydrate Monohydrate 6-16 le} e 100 MG 100 MG 00:00: Monohydrat 00 e 100 MG predniSONE predniSONE 0 No QD predniSONE 10 MG 10 MG 6-16 10 MG 00:00: 00 predniSONE predniSONE 0 No QD predniSONE 10 MG 10 MG 6-16 10 MG 00:00: 00 Doxycycline Doxycycline 2020-0 No 1{capsu BID Doxycyclin Monohydrate Monohydrate 6-16 le} e 100 MG 100 MG 00:00: Monohydrat 00 e 100 MG Baclofen Baclofen 2019-0 2020- No Na Dubon 1 tablet Common 04-14 with food Spirit 00:00: 00:00 or milk - CHI 00 :00 [facility] PredniSONE PredniSONE 2019-0 Yes Na Dubon 2 tablets Common 7-10 dailyx 5 Spirit 00:00: then [address] daily x 5 [facility] predniSONE predniSONE 2020-0 No QD predniSONE 20 MG 20 MG 7-10 20 MG 00:00: 00 predniSONE predniSONE 2020-0 No QD predniSONE 20 MG 20 MG 7-10 20 MG 00:00: 00 predniSONE predniSONE 2020-0 No QD predniSONE 20 MG 20 MG 7-10 20 MG 00:00: 00 predniSONE predniSONE 2020-0 No QD predniSONE 20 MG 20 MG 7-10 20 MG 00:00: 00 predniSONE predniSONE 2020-0 No QD predniSONE 20 MG 20 MG 7-10 20 MG 00:00: 00 predniSONE predniSONE 2020-0 No QD predniSONE Common 20 MG 20 MG 7-10 20 MG Spirit 00:00: [facility]I [facility] predniSONE predniSONE 2020-0 No QD predniSONE 20 MG 20 MG 7-10 20 MG 00:00: 00 predniSONE predniSONE 2020-0 No QD predniSONE 20 MG 20 MG 7-10 20 MG 00:00: 00 predniSONE predniSONE 2020-0 No QD predniSONE 20 MG 20 MG 7-10 20 MG 00:00: 00 PredniSONE PredniSONE 2020-0 No QD PredniSONE 20 MG 20 MG 7-10 20 MG 00:00: 00 PredniSONE PredniSONE 2020-0 No QD PredniSONE 20 MG 20 MG 7-10 20 MG 00:00: 00 Montelukast Montelukast 2019- Yes Na Dubon 1 tablet Common Sodium Sodium 2-13 Spirit 00:00: - CHI [facility] Flonase Flonase 2019- Yes Na Dubon 2 spray in Common 2-13 each Spirit 00:00: nostril - CHI [facility] Flonase 50 Flonase 50 2018-08 No 2{spray QD Flonase 50 MCG/ACT MCG/ACT 2-13 _in_eac MCG/ACT 00:00: h_nostr 00 il} Flonase 50 Flonase 50 2018-08 No 2{spray QD Flonase 50 MCG/ACT MCG/ACT 2-13 _in_eac MCG/ACT 00:00: h_nostr 00 il} Flonase 50 Flonase 50 2018-08 No 2{spray QD Flonase 50 MCG/ACT MCG/ACT 2-13 _in_eac MCG/ACT 00:00: h_nostr 00 il} Flonase 50 Flonase 50 2018-08 No 2{spray QD Flonase 50 MCG/ACT MCG/ACT 2-13 _in_eac MCG/ACT 00:00: h_nostr 00 il} Flonase 50 Flonase 50 2018-08 No 2{spray QD Flonase 50 MCG/ACT MCG/ACT 2-13 _in_eac MCG/ACT 00:00: h_nostr 00 il} Flonase 50 Flonase 50 2018-08 No 2{spray QD Flonase 50 Common MCG/ACT MCG/ACT 2-13 _in_eac MCG/ACT Spi rit 00:00: h_nostr - CHI 00 il} [facility] Flonase 50 Flonase 50 2018-08 No 2{spray QD Flonase 50 MCG/ACT MCG/ACT 2-13 _in_eac MCG/ACT 00:00: h_nostr 00 il} Flonase 50 Flonase 50 2018-08 No 2{spray QD Flonase 50 MCG/ACT MCG/ACT 2-13 _in_eac MCG/ACT 00:00: h_nostr 00 il} Flonase 50 Flonase 50 2018-08 No 2{spray QD Flonase 50 MCG/ACT MCG/ACT 2-13 _in_eac MCG/ACT 00:00: h_nostr 00 il} Flonase 50 Flonase 50 2018-08 No 2{spray QD Flonase 50 MCG/ACT MCG/ACT 2-13 _in_eac MCG/ACT 00:00: h_nostr 00 il} Flonase 50 Flonase 50 2018-08 No 2{spray QD Flonase 50 MCG/ACT MCG/ACT 2-13 _in_eac MCG/ACT 00:00: h_nostr 00 il} [facility] No 40mg Common (Triamcinol (Triamcinol 7-23 S pirit one) one) 00:00: - CHI 00 [facility] Singulair Singulair Yes Na Dubon TAKE ONE Common TABLET BY [facility] MOUTH - CHI DAILY [facility] Norvasc Norvasc Yes Na Dubon take one Co mmon tablet by [facility] mouth - CHI daily [facility] Zocor Zocor Yes Na Dubon take one Common tablet by [facility] daily [facility] Ventolin Ventolin Yes Na Dubon 1 puff as Common HFA HFA needed [facility] Omeprazole Omeprazole Yes Na Dubon 1 capsule Common [facility] Stiolto Stiolto Yes Na Dubon 2 puffs Com mon Respimat Respimat [facility] Metformin Metformin Yes Na Dubon 1 tablet Common HCl HCl with meals [facility] Hydrochloro Hydrochloro Yes Na Dubon TAKE ONE Common thiazide thiazide TABLET BY Sp arnie [facility] DAILY [facility] Atorvastati Atorvastati Yes Na Dubon 1 tablet Common n Calcium n Calcium Spiri [facility] Metformin Metformin No 1{table BID Metformin HCl 1000 MG HCl 1000 MG t_with_ HCl 1000 a_meal} MG Norvasc 2.5 Norvasc 2.5 No Norvasc MG MG 2.5 MG Tamsulosin Tamsulosin No 1{capsu QD Tamsulosin HCl 0.4 MG HCl 0.4 MG le} HCl 0.4 MG Cyclobenzap Cyclobenzap No Cyclobenza rine HCl 10 rine HCl 10 elmer HCl MG MG 10 MG Incruse Incruse No 1{puff} QD Incruse Ellipta Ellipta Ellipta 62.5 62.5 62.5 MCG/INH MCG/INH MCG/INH Ventolin Ventolin No 1{puff_ 6xD Ventolin HFA 108 (90 HFA 108 (90 as_need HFA 108 Base) Base) ed} (90 Base) MCG/ACT MCG/ACT MCG/ACT Cyclobenzap Cyclobenzap No Cyclobenza rine HCl 10 rine HCl 10 elmer HCl MG MG 10 MG hydroCHLORO hydroCHLORO No hydroCHLOR thiazide thiazide Othiazide 12.5 MG 12.5 MG 12.5 MG Montelukast Montelukast No Montelukas Sodium 10 Sodium 10 t Sodium MG MG 10 MG metFORMIN metFORMIN No 1{table BID metFORMIN HCl 1000 MG HCl 1000 MG t_with_ HCl 1000 a_meal} MG Norvasc 2.5 Norvasc 2.5 No Norvasc MG MG 2.5 MG Symbicort Symbicort No 2{puffs BID Symbicort 160-4.5 160-4.5 } 160-4.5 MCG/ACT MCG/ACT MCG/ACT Atorvastati Atorvastati No 1{table QD Atorvastat n Calcium n Calcium t} in Calcium 40 MG 40 MG 40 MG Singulair Singulair No Singulair 10 MG 10 MG 10 MG Incruse Incruse No 1{puff} QD Incruse Ellipta Ellipta Ellipta 62.5 62.5 62.5 MCG/INH MCG/INH MCG/INH Atorvastati Atorvastati No 1{table QD Atorvastat n Calcium n Calcium t} in Calcium 40 MG 40 MG 40 MG Zocor 40 MG Zocor 40 MG No Zocor 40 MG Omeprazole Omeprazole No 1{capsu QD Omeprazole 40 MG 40 MG le} 40 MG Norvasc 2.5 Norvasc 2.5 No QD Norvasc 2.5 Stiolto Stiolto No 2{puffs QD Stiolto Respimat Respimat } Respimat 2.5mcg/2.5m 2.5mcg/2.5m 2.5mcg/2.5 cg cg mcg hydroCHLORO hydroCHLORO No QD hydroCHLOR thiazide thiazide Othiazide 12.5 MG 12.5 MG 12.5 MG Jardiance Jardiance No 1{table QD Jardiance 25 MG 25 MG t} 25 MG Tamsulosin Tamsulosin No 1{capsu QD Tamsulosin HCl 0.4 MG HCl 0.4 MG le} HCl 0.4 MG Ventolin Ventolin No 1{puff_ 6xD Ventolin HFA 108 (90 HFA 108 (90 as_need HFA 108 Base) Base) ed} (90 Base) MCG/ACT MCG/ACT MCG/ACT Cyclobenzap Cyclobenzap No Cyclobenza rine HCl 10 rine HCl 10 elmer HCl MG MG 10 MG hydroCHLORO hydroCHLORO No hydroCHLOR thiazide thiazide Othiazide 12.5 MG 12.5 MG 12.5 MG Montelukast Montelukast No Montelukas Sodium 10 Sodium 10 t Sodium MG MG 10 MG metFORMIN metFORMIN No 1{table BID metFORMIN HCl 1000 MG HCl 1000 MG t_with_ HCl 1000 a_meal} MG Norvasc 2.5 Norvasc 2.5 No Norvasc MG MG 2.5 MG Symbicort Symbicort No 2{puffs BID Symbicort 160-4.5 160-4.5 } 160-4.5 MCG/ACT MCG/ACT MCG/ACT Atorvastati Atorvastati No 1{table QD Atorvastat n Calcium n Calcium t} in Calcium 40 MG 40 MG 40 MG Singulair Singulair No Singulair 10 MG 10 MG 10 MG Incruse Incruse No 1{puff} QD Incruse Ellipta Ellipta Ellipta 62.5 62.5 62.5 MCG/INH MCG/INH MCG/INH Atorvastati Atorvastati No 1{table QD Atorvastat n Calcium n Calcium t} in Calcium 40 MG 40 MG 40 MG Zocor 40 MG Zocor 40 MG No Zocor 40 MG Omeprazole Omeprazole No 1{capsu QD Omeprazole 40 MG 40 MG le} 40 MG Norvasc 2.5 Norvasc 2.5 No QD Norvasc 2.5 Stiolto Stiolto No 2{puffs QD Stiolto Respimat Respimat } Respimat 2.5mcg/2.5m 2.5mcg/2.5m 2.5mcg/2.5 cg cg mcg hydroCHLORO hydroCHLORO No QD hydroCHLOR thiazide thiazide Othiazide 12.5 MG 12.5 MG 12.5 MG Jardiance Jardiance No 1{table QD Jardiance 25 MG 25 MG t} 25 MG Tamsulosin Tamsulosin No 1{capsu QD Tamsulosin HCl 0.4 MG HCl 0.4 MG le} HCl 0.4 MG Ventolin Ventolin No 1{puff_ 6xD Ventolin HFA 108 (90 HFA 108 (90 as_need HFA 108 Base) Base) ed} (90 Base) MCG/ACT MCG/ACT MCG/ACT Cyclobenzap Cyclobenzap No Cyclobenza rine HCl 10 rine HCl 10 elmer HCl MG MG 10 MG hydroCHLORO hydroCHLORO No hydroCHLOR thiazide thiazide Othiazide 12.5 MG 12.5 MG 12.5 MG Montelukast Montelukast No Montelukas Sodium 10 Sodium 10 t Sodium MG MG 10 MG metFORMIN metFORMIN No 1{table BID metFORMIN HCl 1000 MG HCl 1000 MG t_with_ HCl 1000 a_meal} MG Norvasc 2.5 Norvasc 2.5 No Norvasc MG MG 2.5 MG Symbicort Symbicort No 2{puffs BID Symbicort 160-4.5 160-4.5 } 160-4.5 MCG/ACT MCG/ACT MCG/ACT Atorvastati Atorvastati No 1{table QD Atorvastat n Calcium n Calcium t} in Calcium 40 MG 40 MG 40 MG Singulair Singulair No Singulair 10 MG 10 MG 10 MG Incruse Incruse No 1{puff} QD Incruse Ellipta Ellipta Ellipta 62.5 62.5 62.5 MCG/INH MCG/INH MCG/INH Atorvastati Atorvastati No 1{table QD Atorvastat n Calcium n Calcium t} in Calcium 40 MG 40 MG 40 MG Zocor 40 MG Zocor 40 MG No Zocor 40 MG Omeprazole Omeprazole No 1{capsu QD Omeprazole 40 MG 40 MG le} 40 MG Norvasc 2.5 Norvasc 2.5 No QD Norvasc 2.5 Stiolto Stiolto No 2{puffs QD Stiolto Respimat Respimat } Respimat 2.5mcg/2.5m 2.5mcg/2.5m 2.5mcg/2.5 cg cg mcg hydroCHLORO hydroCHLORO No QD hydroCHLOR thiazide thiazide Othiazide 12.5 MG 12.5 MG 12.5 MG Jardiance Jardiance No 1{table QD Jardiance 25 MG 25 MG t} 25 MG Tamsulosin Tamsulosin No 1{capsu QD Tamsulosin HCl 0.4 MG HCl 0.4 MG le} HCl 0.4 MG Ventolin Ventolin No 1{puff_ 6xD Ventolin HFA 108 (90 HFA 108 (90 as_need HFA 108 Base) Base) ed} (90 Base) MCG/ACT MCG/ACT MCG/ACT Cyclobenzap Cyclobenzap No Cyclobenza rine HCl 10 rine HCl 10 elmer HCl MG MG 10 MG hydroCHLORO hydroCHLORO No hydroCHLOR thiazide thiazide Othiazide 12.5 MG 12.5 MG 12.5 MG Montelukast Montelukast No Montelukas Sodium 10 Sodium 10 t Sodium MG MG 10 MG metFORMIN metFORMIN No 1{table BID metFORMIN HCl 1000 MG HCl 1000 MG t_with_ HCl 1000 a_meal} MG Norvasc 2.5 Norvasc 2.5 No Norvasc MG MG 2.5 MG Symbicort Symbicort No 2{puffs BID Symbicort 160-4.5 160-4.5 } 160-4.5 MCG/ACT MCG/ACT MCG/ACT Atorvastati Atorvastati No 1{table QD Atorvastat n Calcium n Calcium t} in Calcium 40 MG 40 MG 40 MG Singulair Singulair No Singulair 10 MG 10 MG 10 MG Incruse Incruse No 1{puff} QD Incruse Ellipta Ellipta Ellipta 62.5 62.5 62.5 MCG/INH MCG/INH MCG/INH Atorvastati Atorvastati No 1{table QD Atorvastat n Calcium n Calcium t} in Calcium 40 MG 40 MG 40 MG Zocor 40 MG Zocor 40 MG No Zocor 40 MG Omeprazole Omeprazole No 1{capsu QD Omeprazole 40 MG 40 MG le} 40 MG Norvasc 2.5 Norvasc 2.5 No QD Norvasc 2.5 Stiolto Stiolto No 2{puffs QD Stiolto Respimat Respimat } Respimat 2.5mcg/2.5m 2.5mcg/2.5m 2.5mcg/2.5 cg cg mcg hydroCHLORO hydroCHLORO No QD hydroCHLOR thiazide thiazide Othiazide 12.5 MG 12.5 MG 12.5 MG Jardiance Jardiance No 1{table QD Jardiance 25 MG 25 MG t} 25 MG Tamsulosin Tamsulosin No 1{capsu QD Tamsulosin HCl 0.4 MG HCl 0.4 MG le} HCl 0.4 MG Ventolin Ventolin No 1{puff_ 6xD Ventolin HFA 108 (90 HFA 108 (90 as_need HFA 108 Base) Base) ed} (90 Base) MCG/ACT MCG/ACT MCG/ACT Symbicort Symbicort No 2{puffs BID Symbicort 160-4.5 160-4.5 } 160-4.5 MCG/ACT MCG/ACT MCG/ACT Norvasc 2.5 Norvasc 2.5 No QD Norvasc 2.5 hydroCHLORO hydroCHLORO No hydroCHLOR thiazide thiazide Othiazide 12.5 MG 12.5 MG 12.5 MG Stiolto Stiolto No 2{puffs QD Stiolto Respimat Respimat } Respimat 2.5mcg/2.5m 2.5mcg/2.5m 2.5mcg/2.5 cg cg mcg Omeprazole Omeprazole No 1{capsu QD Omeprazole 40 MG 40 MG le} 40 MG Norvasc 2.5 Norvasc 2.5 No Norvasc MG MG 2.5 MG Cyclobenzap Cyclobenzap No Cyclobenza rine HCl 10 rine HCl 10 elmer HCl MG MG 10 MG Tamsulosin Tamsulosin No 1{capsu QD Tamsulosin HCl 0.4 MG HCl 0.4 MG le} HCl 0.4 MG hydroCHLORO hydroCHLORO No QD hydroCHLOR thiazide thiazide Othiazide 12.5 MG 12.5 MG 12.5 MG metFORMIN metFORMIN No 1{table BID metFORMIN HCl 1000 MG HCl 1000 MG t_with_ HCl 1000 a_meal} MG Montelukast Montelukast No Montelukas Sodium 10 Sodium 10 t Sodium MG MG 10 MG Zocor 40 MG Zocor 40 MG No Zocor 40 MG Jardiance Jardiance No 1{table QD Jardiance 25 MG 25 MG t} 25 MG Atorvastati Atorvastati No 1{table QD Atorvastat n Calcium n Calcium t} in Calcium 40 MG 40 MG 40 MG Singulair Singulair No Singulair 10 MG 10 MG 10 MG Incruse Incruse No 1{puff} QD Incruse Ellipta Ellipta Ellipta 62.5 62.5 62.5 MCG/INH MCG/INH MCG/INH Atorvastati Atorvastati No 1{table QD Atorvastat n Calcium n Calcium t} in Calcium 40 MG 40 MG 40 MG Ventolin Ventolin No 1{puff_ 6xD Ventolin HFA 108 (90 HFA 108 (90 as_need HFA 108 Base) Base) ed} (90 Base) MCG/ACT MCG/ACT MCG/ACT Ventolin Ventolin No 1{puff_ 6xD Ventolin Common HFA 108 (90 HFA 108 (90 as_need HFA 108 Spirit Base) Base) ed} (90 Base) - CHI MCG/ACT MCG/ACT MCG/ACT [facility] Omeprazole Omeprazole No 1{capsu QD Omeprazole Common 40 MG 40 MG le} 40 MG [facility] metFORMIN metFORMIN No 1{table BID metFORMIN Common HCl 1000 MG HCl 1000 MG t_with_ HCl 1000 Spirit a_meal} MG [facility] Symbicort Symbicort No 2{puffs BID Symbicort Common 160-4.5 160-4.5 } 160-4.5 Spirit MCG/ACT MCG/ACT MCG/ACT [facility] Norvasc 2.5 Norvasc 2.5 No Norvasc Common MG MG 2.5 MG [facility] hydroCHLORO hydroCHLORO No hydroCHLOR Common thiazide thiazide Othiazide Sp arnie 12.5 MG 12.5 MG 12.5 MG [facility] Tamsulosin Tamsulosin No 1{capsu QD Tamsulosin Common HCl 0.4 MG HCl 0.4 MG le} HCl 0.4 MG [facility] Zocor 40 MG Zocor 40 MG No Zocor 40 Common MG [facility] hydroCHLORO hydroCHLORO No QD hydroCHLOR Common thiazide thiazide Othiazide Sp arnie 12.5 MG 12.5 MG 12.5 MG [facility] [place] Atorvastati Atorvastati No 1{table QD Atorvastat Common n Calcium n Calcium t} in Calcium Spirit 40 MG 40 MG 40 MG [facility] [place] Montelukast Montelukast No Montelukas Common Sodium 10 Sodium 10 t Sodium S pirit MG MG 10 MG - [facility] Stiolto Stiolto No 2{puffs QD Stiolto Com mon Respimat Respimat } Respimat Spi rit 2.5mcg/2.5m 2.5mcg/2.5m 2.5mcg/2.5 - CHI cg cg mcg [facility] Atorvastati Atorvastati No 1{table QD Atorvastat Common n Calcium n Calcium t} in Calcium Spirit 40 MG 40 MG 40 MG [facility] [place] Norvasc 2.5 Norvasc 2.5 No QD Norvasc Common 2.5 [facility] Singulair Singulair No Singulair Common 10 MG 10 MG 10 MG [facility] Incruse Incruse No 1{puff} QD Incruse Com mon Ellipta Ellipta Ellipta Spirit 62.5 62.5 62.5 - CHI MCG/INH MCG/INH MCG/INH [facility] Cyclobenzap Cyclobenzap No Cyclobenza Common rine HCl 10 rine HCl 10 elmer HCl Spirit MG MG 10 MG [facility] Jardiance Jardiance No 1{table QD Jardiance Common 25 MG 25 MG t} 25 MG [facility] Omeprazole Omeprazole No 1{capsu QD Omeprazole 40 MG 40 MG le} 40 MG Jardiance Jardiance No 1{table QD Jardiance 25 MG 25 MG t} 25 MG Stiolto Stiolto No 2{puffs QD Stiolto Respimat Respimat } Respimat 2.5mcg/2.5m 2.5mcg/2.5m 2.5mcg/2.5 cg cg mcg Symbicort Symbicort No 2{puffs BID Symbicort 160-4.5 160-4.5 } 160-4.5 MCG/ACT MCG/ACT MCG/ACT hydroCHLORO hydroCHLORO No QD hydroCHLOR thiazide thiazide Othiazide 12.5 MG 12.5 MG 12.5 MG Zocor 40 MG Zocor 40 MG No Zocor 40 MG Tamsulosin Tamsulosin No 1{capsu QD Tamsulosin HCl 0.4 MG HCl 0.4 MG le} HCl 0.4 MG Ventolin Ventolin No 1{puff_ 6xD Ventolin HFA 108 (90 HFA 108 (90 as_need HFA 108 Base) Base) ed} (90 Base) MCG/ACT MCG/ACT MCG/ACT Singulair Singulair No Singulair 10 MG 10 MG 10 MG Atorvastati Atorvastati No 1{table QD Atorvastat n Calcium n Calcium t} in Calcium 40 MG 40 MG 40 MG Norvasc 2.5 Norvasc 2.5 No Norvasc MG MG 2.5 MG metFORMIN metFORMIN No 1{table BID metFORMIN HCl 1000 MG HCl 1000 MG t_with_ HCl 1000 a_meal} MG Cyclobenzap Cyclobenzap No Cyclobenza rine HCl 10 rine HCl 10 elmer HCl MG MG 10 MG hydroCHLORO hydroCHLORO No hydroCHLOR thiazide thiazide Othiazide 12.5 MG 12.5 MG 12.5 MG Atorvastati Atorvastati No 1{table QD Atorvastat n Calcium n Calcium t} in Calcium 40 MG 40 MG 40 MG Incruse Incruse No 1{puff} QD Incruse Ellipta Ellipta Ellipta 62.5 62.5 62.5 MCG/INH MCG/INH MCG/INH Norvasc 2.5 Norvasc 2.5 No QD Norvasc 2.5 Montelukast Montelukast No Montelukas Sodium 10 Sodium 10 t Sodium MG MG 10 MG Jardiance Jardiance No 1{table QD Jardiance 25 MG 25 MG t} 25 MG metFORMIN metFORMIN No 1{table BID metFORMIN HCl 1000 MG HCl 1000 MG t_with_ HCl 1000 a_meal} MG Stiolto Stiolto No 2{puffs QD Stiolto Respimat Respimat } Respimat 2.5mcg/2.5m 2.5mcg/2.5m 2.5mcg/2.5 cg cg mcg Symbicort Symbicort No 2{puffs BID Symbicort 160-4.5 160-4.5 } 160-4.5 MCG/ACT MCG/ACT MCG/ACT hydroCHLORO hydroCHLORO No hydroCHLOR thiazide thiazide Othiazide 12.5 MG 12.5 MG 12.5 MG Tamsulosin Tamsulosin No 1{capsu QD Tamsulosin HCl 0.4 MG HCl 0.4 MG le} HCl 0.4 MG Singulair Singulair No Singulair 10 MG 10 MG 10 MG Ventolin Ventolin No 1{puff_ 6xD Ventolin HFA 108 (90 HFA 108 (90 as_need HFA 108 Base) Base) ed} (90 Base) MCG/ACT MCG/ACT MCG/ACT Omeprazole Omeprazole No Omeprazole 40 MG 40 MG 40 MG hydroCHLORO hydroCHLORO No QD hydroCHLOR thiazide thiazide Othiazide 12.5 MG 12.5 MG 12.5 MG Zocor 40 MG Zocor 40 MG No Zocor 40 MG Atorvastati Atorvastati No 1{table QD Atorvastat n Calcium n Calcium t} in Calcium 40 MG 40 MG 40 MG Cyclobenzap Cyclobenzap No Cyclobenza rine HCl 10 rine HCl 10 elmer HCl MG MG 10 MG Norvasc 2.5 Norvasc 2.5 No QD Norvasc 2.5 Incruse Incruse No 1{puff} QD Incruse Ellipta Ellipta Ellipta 62.5 62.5 62.5 MCG/INH MCG/INH MCG/INH Montelukast Montelukast No Montelukas Sodium 10 Sodium 10 t Sodium MG MG 10 MG Norvasc 2.5 Norvasc 2.5 No Norvasc MG MG 2.5 MG Atorvastati Atorvastati No 1{table QD Atorvastat n Calcium n Calcium t} in Calcium 40 MG 40 MG 40 MG Montelukast Montelukast No Montelukas Sodium 10 Sodium 10 t Sodium MG MG 10 MG Tamsulosin Tamsulosin No Tamsulosin HCl 0.4 MG HCl 0.4 MG HCl 0.4 MG Jardiance Jardiance No Jardiance 25 MG 25 MG 25 MG hydroCHLORO hydroCHLORO No hydroCHLOR thiazide thiazide Othiazide 12.5 MG 12.5 MG 12.5 MG Symbicort Symbicort No 2{puffs BID Symbicort 160-4.5 160-4.5 } 160-4.5 MCG/ACT MCG/ACT MCG/ACT Zocor 40 MG Zocor 40 MG No Zocor 40 MG Incruse Incruse No 1{puff} QD Incruse Ellipta Ellipta Ellipta 62.5 62.5 62.5 MCG/INH MCG/INH MCG/INH Ventolin Ventolin No 1{puff_ 6xD Ventolin HFA 108 (90 HFA 108 (90 as_need HFA 108 Base) Base) ed} (90 Base) MCG/ACT MCG/ACT MCG/ACT Singulair Singulair No Singulair 10 MG 10 MG 10 MG hydroCHLORO hydroCHLORO No QD hydroCHLOR thiazide thiazide Othiazide 12.5 MG 12.5 MG 12.5 MG Norvasc 2.5 Norvasc 2.5 No Norvasc MG MG 2.5 MG Atorvastati Atorvastati No 1{table QD Atorvastat n Calcium n Calcium t} in Calcium 40 MG 40 MG 40 MG Cyclobenzap Cyclobenzap No Cyclobenza rine HCl 10 rine HCl 10 elmer HCl MG MG 10 MG Atorvastati Atorvastati No 1{table QD Atorvastat n Calcium n Calcium t} in Calcium 40 MG 40 MG 40 MG Omeprazole Omeprazole No Omeprazole 40 MG 40 MG 40 MG Stiolto Stiolto No 2{puffs QD Stiolto Respimat Respimat } Respimat 2.5mcg/2.5m 2.5mcg/2.5m 2.5mcg/2.5 cg cg mcg Norvasc 2.5 Norvasc 2.5 No QD Norvasc 2.5 metFORMIN metFORMIN No 1{table BID metFORMIN HCl 1000 MG HCl 1000 MG t_with_ HCl 1000 a_meal} MG Norvasc 2.5 Norvasc 2.5 No QD Norvasc 2.5 Jardiance Jardiance No Jardiance 25 MG 25 MG 25 MG Omeprazole Omeprazole No Omeprazole 40 MG 40 MG 40 MG Cyclobenzap Cyclobenzap No Cyclobenza rine HCl 10 rine HCl 10 elmer HCl MG MG 10 MG Breztri Breztri No 2{puffs BID Breztri Aerosphere Aerosphere } Aerosphere 160-9-4.8 160-9-4.8 160-9-4.8 MCG/ACT MCG/ACT MCG/ACT Cyclobenzap Cyclobenzap No Cyclobenza rine HCl 10 rine HCl 10 elmer HCl MG MG 10 MG amLODIPine amLODIPine No 1{table QD amLODIPine Besylate Besylate t} Besylate 2.5 MG 2.5 MG 2.5 MG metFORMIN metFORMIN No 1{table BID metFORMIN HCl 1000 MG HCl 1000 MG t_with_ HCl 1000 a_meal} MG hydroCHLORO hydroCHLORO No QD hydroCHLOR thiazide thiazide Othiazide 12.5 MG 12.5 MG 12.5 MG Ventolin Ventolin No 1{puff_ 6xD Ventolin HFA 108 (90 HFA 108 (90 as_need HFA 108 Base) Base) ed} (90 Base) MCG/ACT MCG/ACT MCG/ACT Tamsulosin Tamsulosin No 1{capsu QD Tamsulosin HCl 0.4 MG HCl 0.4 MG le} HCl 0.4 MG Atorvastati Atorvastati No 1{table QD Atorvastat n Calcium n Calcium t} in Calcium 40 MG 40 MG 40 MG Atorvastati Atorvastati No QD Atorvastat n Calcium n Calcium in Calcium 40 MG 40 MG 40 MG Jardiance Jardiance No 1{table QD Jardiance 25 MG 25 MG t} 25 MG hydroCHLORO hydroCHLORO No hydroCHLOR thiazide thiazide Othiazide 12.5 MG 12.5 MG 12.5 MG Tamsulosin Tamsulosin No 1{capsu QD Tamsulosin HCl 0.4 MG HCl 0.4 MG le} HCl 0.4 MG metFORMIN metFORMIN No metFORMIN HCl 1000 MG HCl 1000 MG HCl 1000 MG Montelukast Montelukast No 1{table QD Montelukas Sodium 10 Sodium 10 t} t Sodium MG MG 10 MG Atorvastati Atorvastati No 1{table QD Atorvastat n Calcium n Calcium t} in Calcium 40 MG 40 MG 40 MG Breztri Breztri No 2{puffs BID Breztri Aerosphere Aerosphere } Aerosphere 160-9-4.8 160-9-4.8 160-9-4.8 MCG/ACT MCG/ACT MCG/ACT Tamsulosin Tamsulosin No 1{capsu QD Tamsulosin HCl 0.4 MG HCl 0.4 MG le} HCl 0.4 MG hydroCHLORO hydroCHLORO No hydroCHLOR thiazide thiazide Othiazide 12.5 MG 12.5 MG 12.5 MG amLODIPine amLODIPine No 1{table QD amLODIPine Besylate Besylate t} Besylate 2.5 MG 2.5 MG 2.5 MG Ventolin Ventolin No 1{puff_ 6xD Ventolin HFA 108 (90 HFA 108 (90 as_need HFA 108 Base) Base) ed} (90 Base) MCG/ACT MCG/ACT MCG/ACT hydroCHLORO hydroCHLORO No hydroCHLOR thiazide thiazide Othiazide 12.5 MG 12.5 MG 12.5 MG Tamsulosin Tamsulosin No 1{capsu QD Tamsulosin HCl 0.4 MG HCl 0.4 MG le} HCl 0.4 MG Montelukast Montelukast No 1{table QD Montelukas Sodium 10 Sodium 10 t} t Sodium MG MG 10 MG Zocor 40 MG Zocor 40 MG No Zocor 40 MG Jardiance Jardiance No Jardiance 25 MG 25 MG 25 MG Atorvastati Atorvastati No QD Atorvastat n Calcium n Calcium in Calcium 40 MG 40 MG 40 MG metFORMIN metFORMIN No metFORMIN HCl 1000 MG HCl 1000 MG HCl 1000 MG Norvasc 2.5 Norvasc 2.5 No Norvasc 2.5 Omeprazole Omeprazole No Omeprazole 40 MG 40 MG 40 MG metFORMIN metFORMIN No 1{table BID metFORMIN HCl 500 MG HCl 500 MG t_with_ HCl 500 MG meals} Cyclobenzap Cyclobenzap No Cyclobenza rine HCl 10 rine HCl 10 elmer HCl MG MG 10 MG Cyclobenzap Cyclobenzap No Cyclobenza rine HCl 10 rine HCl 10 elmer HCl MG MG 10 MG Ventolin Ventolin No 1{puff_ 6xD Ventolin HFA 108 (90 HFA 108 (90 as_need HFA 108 Base) Base) ed} (90 Base) MCG/ACT MCG/ACT MCG/ACT Atorvastati Atorvastati No 1{table QD Atorvastat n Calcium n Calcium t} in Calcium 40 MG 40 MG 40 MG Norvasc 2.5 Norvasc 2.5 No Norvasc 2.5 Singulair Singulair No Singulair 10 MG 10 MG 10 MG Tamsulosin Tamsulosin No 1{capsu QD Tamsulosin HCl 0.4 MG HCl 0.4 MG le} HCl 0.4 MG Zocor 40 MG Zocor 40 MG No Zocor 40 MG Omeprazole Omeprazole No 1{capsu QD Omeprazole 40 MG 40 MG le} 40 MG Hydrochloro Hydrochloro No Hydrochlor thiazide thiazide othiazide 12.5 MG 12.5 MG 12.5 MG Montelukast Montelukast No Montelukas Sodium 10 Sodium 10 t Sodium MG MG 10 MG Cyclobenzap Cyclobenzap No Cyclobenza rine HCl 10 rine HCl 10 elmer HCl MG MG 10 MG Metformin Metformin No 1{table BID Metformin HCl 1000 MG HCl 1000 MG t_with_ HCl 1000 a_meal} MG Stiolto Stiolto No 2{puffs QD Stiolto Respimat Respimat } Respimat 2.5mcg/2.5m 2.5mcg/2.5m 2.5mcg/2.5 cg cg mcg Norvasc 2.5 Norvasc 2.5 No Norvasc MG MG 2.5 MG Omeprazole Omeprazole No 1{capsu QD Omeprazole 40 MG 40 MG le} 40 MG Stiolto Stiolto No 2{puffs QD Stiolto Respimat Respimat } Respimat 2.5mcg/2.5m 2.5mcg/2.5m 2.5mcg/2.5 cg cg mcg Cyclobenzap Cyclobenzap No Cyclobenza rine HCl 10 rine HCl 10 elmer HCl MG MG 10 MG Symbicort Symbicort No 2{puffs BID Symbicort 160-4.5 160-4.5 } 160-4.5 MCG/ACT MCG/ACT MCG/ACT Atorvastati Atorvastati No 1{table QD Atorvastat n Calcium n Calcium t} in Calcium 40 MG 40 MG 40 MG Hydrochloro Hydrochloro No QD Hydrochlor thiazide thiazide othiazide 12.5 MG 12.5 MG 12.5 MG Jardiance Jardiance No 1{table QD Jardiance 25 MG 25 MG t} 25 MG Singulair Singulair No Singulair 10 MG 10 MG 10 MG Montelukast Montelukast No Montelukas Sodium 10 Sodium 10 t Sodium MG MG 10 MG Hydrochloro Hydrochloro No Hydrochlor thiazide thiazide othiazide 12.5 MG 12.5 MG 12.5 MG Norvasc 2.5 Norvasc 2.5 No QD Norvasc 2.5 Atorvastati Atorvastati No 1{table QD Atorvastat n Calcium n Calcium t} in Calcium 40 MG 40 MG 40 MG Zocor 40 MG Zocor 40 MG No Zocor 40 MG Tamsulosin Tamsulosin Na Dubon 1 capsule Common HCl HCl 04-14 [facility] 00:00 - [facility] :00 [facility] Immunizations Ordered Immunization Filled Immunization Date Status Commen ts Source Name Name Flucelvax - Flucelvax - 2021-08-10 Completed [facility] multidose vial multidose vial 17:00: [facility] [place] Flucelvax - Flucelvax - 2021-08-10 Completed [facility] multidose vial multidose vial 17:00: [facility] [place] Kenalog Kenalog 2021-04-06 Completed [facility] (Triamcinolone) (Triamcinolone) 17:04:00 [facility] Afluria single dose Afluria single dose 2019-07-19 Completed [facility] 14:49:00 [facility] [place] Afluria single dose Afluria single dose 2019-07-19 Completed [facility] 14:49:00 [facility] [place] Afluria single dose Afluria single dose 2019-07-19 Completed [facility] 14:49:00 [facility] Afluria single dose Afluria single dose 2019-07-19 Completed [facility] 14:49:00 [facility] Afluria single dose Afluria single dose 2019-07-19 Completed [facility] 14:49:00 [facility] Afluria single dose Afluria single dose 2019-07-19 Completed [facility] 14:49:00 [facility] [place] Afluria single dose Afluria single dose 2019-07-19 Completed [facility] 14:49:00 [facility] Afluria single dose Afluria single dose 2019-07-19 Completed [facility] 14:49:00 [facility] [place] Afluria single dose Afluria single dose 2019-07-19 Completed [facility] 14:49:00 [facility] [place] Afluria single dose Afluria single dose 2019-07-19 Completed [facility] 14:49:00 [facility] [place] Afluria single dose Afluria single dose 2019-07-19 Completed [facility] 14:49:00 [facility] [place] Afluria single dose Afluria single dose 2019-07-19 Completed [facility] 14:49:00 [facility] [place] Afluria single dose Afluria single dose 2019-07-19 Completed [facility] 14:49:00 [facility] Afluria single dose Afluria single dose 2019-07-19 Completed [facility] 00:00:00 [facility] (Triamcinolone[facility] (Triamcinolone) 08:06:00 [facility]-26 [facility] (Triamcinolone) (Triamcinolone) 08:06:00 [facility] 2019-02-26 Completed [facility] (Triamcinolone) (Triamcinolone) 08:06:00 [facility] 2019-02-26 Completed [facility] (Triamcinolone) (Triamcinolone) 08:06:00 [facility] 2019-02-26 Completed [facility] (Triamcinolone) (Triamcinolone) 08:06:00 [facility] 2019-02-26 Completed [facility] (Triamcinolone) (Triamcinolone) 08:06:00 [facility] 2019-02-26 Completed [facility] (Triamcinolone) (Triamcinolone) 08:06:00 [facility] 2019-02-26 Completed [facility] (Triamcinolone) (Triamcinolone) 08:06:00 [facility] 2019-02-26 Completed [facility] (Triamcinolone) (Triamcinolone) 08:06:00 [facility] 2019-02-26 Completed [facility] (Triamcinolone) (Triamcinolone) 08:06:00 [facility] Vital Signs Vital Name Observation Time Observation Value Comments Source height 2021-10-01 14:40:00 74 [in_i] [facility] weight 2021-10-01 14:40:00 240.2 [lb_av] Common [facility] temperature 2021-10-01 14:40:00 97.3 [degF] Common [facility] bmi 2021-10-01 14:40:00 30.84 kg/m2 [facility] oximetry 2021-10-01 14:40:00 98 % Common [facility] respiratory rate 2021-10-01 14:40:00 16 /min Comm on [facility] blood pressure 2021-10-01 14:40:00 128 mm[Hg] Common [facility] - systolic [facility] blood pressure 2021-10-01 14:40:00 79 mm[Hg] Common [facility] - diastolic [facility] height 2021-08-10 16:20:00 74 [in_i] [facility] weight 2021-08-10 16:20:00 242 [lb_av] [facility] temperature 2021-08-10 16:20:00 97.9 [degF] Common [facility] bmi 2021-08-10 16:20:00 31.07 kg/m2 [facility] oximetry 2021-08-10 16:20:00 96 % [facility] respiratory rate 2021-08-10 16:20:00 16 /min Comm on [facility] blood pressure 2021-08-10 16:20:00 129 mm[Hg] Common [facility] - systolic [facility] blood pressure 2021-08-10 16:20:00 76 mm[Hg] Common [facility] - diastolic [facility] height 2021-04-06 16:00:00 74 [in_i] [facility] weight 2021-04-06 16:00:00 241.6 [lb_av] [facility] temperature 2021-04-06 16:00:00 96.9 [degF] [facility] bmi 2021-04-06 16:00:00 31.02 kg/m2 [facility] oximetry 2021-04-06 16:00:00 94 % [facility] respiratory rate 2021-04-06 16:00:00 18 /min Comm on [facility] blood pressure 2021-04-06 16:00:00 138 mm[Hg] Common [facility] - systolic [facility] blood pressure 2021-04-06 16:00:00 79 mm[Hg] Common [facility] - diastolic [facility] height 2020-10-30 09:40:00 74 [in_i] [facility] weight 2020-10-30 09:40:00 248.0 [lb_av] [facility] temperature 2020-10-30 09:40:00 97.3 [degF] [facility] bmi 2020-10-30 09:40:00 31.84 kg/m2 [facility] oximetry 2020-10-30 09:40:00 96 % [facility] respiratory rate 2020-10-30 09:40:00 16 /min Comm on [facility] blood pressure 2020-10-30 09:40:00 130 mm[Hg] [facility] systolic [facility] blood pressure 2020-10-30 09:40:00 76 mm[Hg] [facility] diastolic [facility] Procedures This patient has no known procedures. Encounters Start End Encounter Admission Attending Care Care Encounter Source Date/Time Date/Time Type Type Clinicians Facility Department ID 2022-04-29 Out[facility] [id number] 2 Common 09:59:01 [facility] 2022-03-17 [facility] [id number] 2 Common 10:24:01 [facility] 2021-09-30 [facility] [id number] 2 Common 10:25:00 [facility] 2021-09-01 Outpatient Dubon, Na [facility] [id number] 2 Common 14:38:56 [facility] 2021-09-01 Outpatient Dubon, Na [facility] [id number] 2 Common 14:30:54 [facility] 2021-09-01 Outpatient Dubon, Na [facility] [id number] 2 Common 12:44:44 [facility] 2021-09-01 Outpatient Dubon, Na [facility] [id number] 2 Common 12:42:04 [id number] [facility] 2021-09-01 Outpatient Dubon, Na [facility] [id number] 2 Common 12:25:11 [id number] [facility] 2021-09-01 Outpatient Dubon, Na [facility] [id number] 2 Common 12:16:04 [id number] [facility] 2021-09-01 Outpatient Dubon, Na [facility] [id number] 2 Common 12:07:06 [id number] [facility] 2021-09-01 Outpatient Dubon, Na [facility] [id number] 2 Common 11:54:58 [id number] [facility] 2021-09-01 Outpatient Dubon, Na [facility] [id number] 2 Common 11:43:51 [id number] [facility] 2021-09-01 Outpatient Dubon, Na [facility] [id number] 2 Common 11:30:21 [id number] [facility] 2021-10-01 2021-10-01 PREV VISIT [facility]C [facility] [id number] Common 00:00:00 00:00:00 EST AGE [facility] 40-64 - [facility] 2021-08-10 2021-08-10 OFFICE [facility] ST[facility] [id number] Co mmon 00:00:00 00:00:00 VISIT Jose ESTAB PT - [facility] LEVEL 4 [facility] 2021-06-17 2021-06-17 (TEL) [facility] ST[facility] [id number] Co mmon 00:00:00 00:00:00 [facility] 2021-04-06 2021-04-06 (TEL) [facility] ST[facility] [id number] Co mmon 00:00:00 00:00:00 [facility] 2021-04-06 2021-04-06 OFFICE [facility] ST[facility] [id number] Co mmon 00:00:00 00:00:00 VISIT EST Spir it PT LEVEL 3 - [facility] 2021-03-09 2021-03-09 OL DIG E/M [facility] ST[facility] [id number] Common 00:00:00 00:00:00 [facility] 11-20 Spir it MIN [facility] 2021-02-10 2021-02-10 (TEL) STL[facility] ST[facility] [id number] Co mmon 00:00:00 00:00:00 [facility] 2021-01-20 2021-01-20 OL DIG E/M [facility] ST[facility] [id number] Common 00:00:00 00:00:00 [facility] 11-20 Spir it MIN [facility] 2021-01-20 2021-01-20 (TEL) [facility] ST[facility] [id number] Co mmon 00:00:00 00:00:00 [facility] 2021-01-20 2021-01-20 (TEL) [facility]C ST[facility] [id number] Co mmon 00:00:00 00:00:00 [facility] 2021-01-18 2021-01-18 (TEL) [facility]C ST[facility] [id number] Co mmon 00:00:00 00:00:00 [facility] 2020-10-30 2020-10-30 OFFICE [facility]C ST[facility] [id number] Co mmon 00:00:00 00:00:00 [facility] ESTAB PT - [facility] LEVEL 4 [facility] 2020-10-23 2020-10-23 (TEL) ST[facility] ST[facility] [id number] Co mmon 00:00:00 00:00:00 [facility] 2020-08-31 2020-08-31 Outpatient [facility] [id number] Common 00:00:00 00:00:00 [facility] 2020-08-28 2020-08-28 Outpatient [facility] [id number] Common 00:00:00 00:00:00 [facility] 2020-07-30 2020-07-30 Outpatient [facility] [id number] Common 00:00:00 00:00:00 [facility] 2020-07-29 2020-07-29 Outpatient [facility] [id number] Common 00:00:00 00:00:00 [facility] 2020-06-26 2020-06-26 Outpatient [facility] [id number] Common 00:00:00 00:00:00 [facility] 2020-05-25 2020-05-25 Outpatient [facility] [id number] Common 00:00:00 00:00:00 [facility] 2020-05-22 2020-05-22 Outpatient [facility] [id number] Common 00:00:00 00:00:00 [facility] 2020-05-22 2020-05-22 Outpatient [facility] [id number] Common 00:00:00 00:00:00 [facility] 2020-05-01 2020-05-01 Outpatient [facility] [id number] Common 00:00:00 00:00:00 [facility] 2020-04-14 2020-04-14 [id number] Common 16:47:00 16:47:[address] [facility] 2020-04-14 2020-04-14 [facility] [id number] Common 10:40:00 10:40:[address] [facility] 2020-04-14 2020-04-14 [facility] [id number] Common 10:37:00 10:37:[address] [facility] 2020-03-13 2020-03-13 [facility] [id number] Common 15:00:00 15:00:[address] [facility] 2020-03-12 2020-03-12 [facility] [id number] Common 09:11:00 09:11:[address] [facility] 2020-03-01 2020-03-01 [facility] [id number] Common 11:25:00 11:25:[address] [facility] 2020-02-14 2020-02-14 [facility] [id number] Common 09:00:00 09:00:[address] [facility] 2019-07-19 2019-07-19 [facility] [id number] Common 13:40:00 13:40:[address] [facility] 2019-02-28 2019-02-28 [facility] [id number] Common 14:20:00 14:20:[address] [facility] 2019-02-26 2019-02-26 [facility] [id number] Common 15:40:00 15:40:[address] [facility] 2018-09-21 2018-09-21 [facility] [id number] Common 09:30:00 09:30:[address] [facility] 2018-08-31 2018-08-31 [facility] [id number] Common 10:29:00 10:29:[address] [facility] 2018-08-09 2018-08-09 [facility] [id number] Common 11:30:00 11:30:[address] [facility] Results This patient has no known results.
--- NOTE | 2022-05-28 13:30 | RAD REPORT ---
EXAM DESCRIPTION: CT - Ct Stroke Brain Wo Cont - 05/28/2022 1:19 pm CLINICAL HISTORY: Numbness COMPARISON: none TECHNIQUE: Computed axial tomography of the head was obtained. All CT scans are performed using dose optimization technique as appropriate and may include automated exposure control or mA/KV adjustment according to patient size. FINDINGS: An intracranial bleed is not seen . The ventricles are normal in caliber. No extra-axial fluid collection is noted. 3 millimeter low-density area right garcia radiata Fluid within the sinuses/ mastoids is not seen. IMPRESSION: 3 millimeter low-density area right garcia radiata may represent a lacunar infarct. The age is indeterminate. MRI would be helpful for further evaluation Dr Truong of the emergency room was notified at 1:24 p.m. on May 28, 2022
[2022-05-28] MEDS ORDERED: TENECTEPLASE 50 MG/10 ML VIAL IV ONE (13:38)
[2022-05-28 13:40] LABS: Absolute Lymphocytes (CBC) 0.7 K/uL (0.7-4.9); Hematocrit 50.5 % (39.6-49.0); Lymphocytes % 11.3 % (15.3-44.8); MCV 97.1 fL (80-100)
[2022-05-28 13:49] LABS: Protime INR 0.99
[2022-05-28 13:59] LABS: Bilirubin Direct 0.2 mg/dL (0-0.2); Bilirubin Total 0.7 mg/dL (0.2-1.0); Magnesium 2.4 mg/dL (1.8-2.4); Potassium 3.9 mmol/L (3.5-5.1); Protein, Total 7.3 g/dL (6.4-8.2); Troponin High Sensitivity 4.3 pg/mL (<58.9)
--- NOTE | 2022-05-28 14:05 | ER ---
Nurse's Notes [facility] Name: Emory Lynn Age: 56 yrs Sex: Male : 1965 Arrival Date: 05/28/2022 Time: 13:04 Bed 16 Private MD: Diagnosis: Cerebral infarction, unspecified;Weakness Presentation: 05/28 13:12 Chief complaint: Sudden onset left arm numbness and weakness that started at 1000 hb today. Coronavirus screen: At this time, the client does not indicate any symptoms associated with coronavirus-19. Ebola Screen: No symptoms or risks identified at this time. Initial Sepsis Screen: Does the patient meet any 2 criteria? No. Patient's initial sepsis screen is negative. Does the patient have a suspected source of infection? No. Patient's initial sepsis screen is negative. Risk Assessment: Do you want to hurt yourself or someone else? Patient reports no desire to harm self or others. Onset of symptoms was May 28, 2022 at 10:00. 13:12 Method Of Arrival: Ambulatory hb 13:12 Acuity: JENISE 2 hb Triage Assessment: 13:15 General: Appears in no apparent distress. comfortable, Behavior is calm, cooperative, ko1 appropriate for age. Pain: Denies pain. EENT: No deficits noted. Neuro: Reports numbness in left antecubital area. Cardiovascular: No deficits noted. Respiratory: No deficits noted. GI: No deficits noted. : No deficits noted. Derm: No deficits noted. Musculoskeletal: No deficits noted. Historical: - Allergies: 13:14 No Known Allergies; hb - Home Meds: 17:40 BP med [Active]; Simvastatin Oral [Active]; ko1 - PMHx: 13:14 Hyperlipidemia; Hypertension; hb - PSHx: 13:14 NECK; hb - Immunization history:: Adult Immunizations up to date. - Social history:: Smoking status: Patient denies any tobacco usage or history of. - Family history:: not pertinent. - Hospitalizations: : No recent hospitalization is reported. Screenin:15 Abuse screen: Denies threats or abuse. Denies injuries from another. Nutritional ko1 screening: No deficits noted. Tuberculosis screening: No symptoms or risk factors identified. Fall Risk None identified. Assessment: 13:06 Reassessment: DR. TRUONG AT BEDSIDE TO EVALUATE PT. hb 13:13 Reassessment: CODE STROKE CALLED AT 1312. PT TO CT VIA WHEELCHAIR. hb Vital Signs: 13:12 BP 166 / 130; Pulse 98; Resp 16; Temp 98.2; Pulse Ox 98% on R/A; Pain 0/10; hb 13:36 Weight 105.4 kg (M); iw 14:00 BP 163 / 80; Pulse 89; ko1 14:30 BP 130 / 83; Pulse 86; ko1 14:45 BP 129 / 82; Pulse 91; ko1 15:06 BP 131 / 84; Pulse 89; Resp 16; Pulse Ox 100% on R/A; iw 15:15 BP 136 / 76; Pulse 92; ko1 15:30 BP 138 / 84; Pulse 84; ko1 15:45 BP 150 / 83; Pulse 81; ko1 16:00 BP 150 / 83; Pulse 81; ko1 16:15 BP 137 / 85; Pulse 82; ko1 16:45 BP 167 / 69; Pulse 88; ko1 NIH Stroke Scale Scores: 13:14 NIHSS Score: 1 rn 13:30 NIHSS Score: 0 ko1 14:00 NIHSS Score: 0 ko1 15:00 NIHSS Score: 0 ko1 ED Course: 13:04 Patient arrived in ED. as 13:05 Andriy Truong MD is Attending Physician. rn 13:07 Linda Verduzco, JORGE is Primary Nurse. ko1 13:13 Triage completed. hb 13:15 Patient has correct armband on for positive identification. Bed in low position. Call ko1 light in reach. Side rails up X 1. Client placed on continuous cardiac and pulse oximetry monitoring. NIBP monitoring applied. teletypesetter monitor on. 13:15 Client placed on continuous cardiac and pulse oximetry monitoring. NIBP monitoring ko1 applied. teletypesetter monitor on. 13:15 Inserted saline lock: 20 gauge in left antecubital area, using aseptic technique. Blood ko1 collected. 13:20 CT Stroke Brain w/o Contrast In Process Unspecified. EDMS 13:26 Arm band placed on. iw 13:49 Glucose, Ancillary Testing Sent. ko1 13:49 Basic Metabolic Panel Sent. ko1 13:49 CBC with Diff Sent. ko1 13:49 High Sensitivity Troponin Sent. ko1 13:49 Hepatic Function Sent. ko1 13:49 Magnesium Sent. ko1 13:49 Protime (+inr) Sent. ko1 13:49 Ptt, Activated Sent. ko1 14:04 Gómez Camarillo is Hospitalizing Provider. rn 14:40 Stroke CXR 1 View In Process Unspecified. EDMS 15:47 SARS RAPID Sent. ko1 17:39 No provider procedures requiring assistance completed. Patient transferred, IV remains ko1 in place. Administered Medications: 13:43 Drug: TNK FOR STROKE - Tenecteplase 0.25 mg/kg {Co-Signature: ko1 (Linda lara RN).} Route: IV; Rate: per protocol; Site: left antecubital; 16:58 Drug: foLIC Acid 1 mg Route: IVPB; Site: left antecubital; ko1 Medication: 17:40 VIS not applicable for this client. ko1 Outcome: 14:05 Decision to Hospitalize by Provider. rn 17:39 Admitted to ICU accompanied by nurse, via wheelchair, room 3, on monitor, with chart. ko1 17:39 Condition: stable 17:39 Instructed on the need for admit, Demonstrated understanding of instructions. 17:54 Patient left the ED. eb NIH Stroke Scale - NIH Stroke Score Date: 05/28/2022 Time: 13:14 Total Score = 1 1a. Level of Consciousness (LOC) - 0(Alert) 1b. Level of Consciousness (LOC) (Month \T\ Age) - 0(Both) 1c. LOC Commands (Open \T\ Closes Eyes/Weigh Boss) - 0(Both) 2. Best Gaze (Lateral Gaze Paresis) - 0(Normal) 3. Visual Field Loss - 0(No visual loss) 4. Facial Palsy - 0(Normal) 5a. Left Arm: Motor (10-second hold) - 0(No drift) 5b. Right Arm: Motor (10-second hold) - 0(No drift) 6a. Left Leg: Motor (5-second hold - always test supine) - 0(No drift) 6b. Right Leg: Motor (5-second hold - always test supine) - 0(No drift) 7. Limb Ataxia (finger/nose \T\ heel/logan - test with eyes open) - 0(Absent) 8. Sensory Loss (pinprick arms/legs/face) - 1(Mild to moderate loss) 9. Best Language: Aphasia (description/naming/reading) - 0(No aphasia) 10. Dysarthria (speech clarity - read or repeat words) - 0(Normal) 11. Extinction and Inattention (visual/tactile/auditory/spatial/personal) - 0(No abnormality) Initials: rn NIH Stroke Scale - NIH Stroke Score Date: 05/28/2022 Time: 13:30 Total Score = 0 1a. Level of Consciousness (LOC) - 0(Alert) 1b. Level of Consciousness (LOC) (Month \T\ Age) - 0(Both) 1c. LOC Commands (Open \T\ Closes Eyes/Weigh Boss) - 0(Both) 2. Best Gaze (Lateral Gaze Paresis) - 0(Normal) 3. Visual Field Loss - 0(No visual loss) 4. Facial Palsy - 0(Normal) 5a. Left Arm: Motor (10-second hold) - 0(No drift) 5b. Right Arm: Motor (10-second hold) - 0(No drift) 6a. Left Leg: Motor (5-second hold - always test supine) - 0(No drift) 6b. Right Leg: Motor (5-second hold - always test supine) - 0(No drift) 7. Limb Ataxia (finger/nose \T\ heel/logan - test with eyes open) - 0(Absent) 8. Sensory Loss (pinprick arms/legs/face) - 0(Normal) 9. Best Language: Aphasia (description/naming/reading) - 0(No aphasia) 10. Dysarthria (speech clarity - read or repeat words) - 0(Normal) 11. Extinction and Inattention (visual/tactile/auditory/spatial/personal) - 0(No abnormality) Initials: ko1 NIH Stroke Scale - NIH Stroke Score Date: 05/28/2022 Time: 14:00 Total Score = 0 1a. Level of Consciousness (LOC) - 0(Alert) 1b. Level of Consciousness (LOC) (Month \T\ Age) - 0(Both) 1c. LOC Commands (Open \T\ Closes Eyes/Weigh Boss) - 0(Both) 2. Best Gaze (Lateral Gaze Paresis) - 0(Normal) 3. Visual Field Loss - 0(No visual loss) 4. Facial Palsy - 0(Normal) 5a. Left Arm: Motor (10-second hold) - 0(No drift) 5b. Right Arm: Motor (10-second hold) - 0(No drift) 6a. Left Leg: Motor (5-second hold - always test supine) - 0(No drift) 6b. Right Leg: Motor (5-second hold - always test supine) - 0(No drift) 7. Limb Ataxia (finger/nose \T\ heel/logan - test with eyes open) - 0(Absent) 8. Sensory Loss (pinprick arms/legs/face) - 0(Normal) 9. Best Language: Aphasia (description/naming/reading) - 0(No aphasia) 10. Dysarthria (speech clarity - read or repeat words) - 0(Normal) 11. Extinction and Inattention (visual/tactile/auditory/spatial/personal) - 0(No abnormality) Initials: ko1 NIH Stroke Scale - NIH Stroke Score Date: 05/28/2022 Time: 15:00 Total Score = 0 1a. Level of Consciousness (LOC) - 0(Alert) 1b. Level of Consciousness (LOC) (Month \T\ Age) - 0(Both) 1c. LOC Commands (Open \T\ Closes Eyes/Weigh Boss) - 0(Both) 2. Best Gaze (Lateral Gaze Paresis) - 0(Normal) 3. Visual Field Loss - 0(No visual loss) 4. Facial Palsy - 0(Normal) 5a. Left Arm: Motor (10-second hold) - 0(No drift) 5b. Right Arm: Motor (10-second hold) - 0(No drift) 6a. Left Leg: Motor (5-second hold - always test supine) - 0(No drift) 6b. Right Leg: Motor (5-second hold - always test supine) - 0(No drift) 7. Limb Ataxia (finger/nose \T\ heel/logan - test with eyes open) - 0(Absent) 8. Sensory Loss (pinprick arms/legs/face) - 0(Normal) 9. Best Language: Aphasia (description/naming/reading) - 0(No aphasia) 10. Dysarthria (speech clarity - read or repeat words) - 0(Normal) 11. Extinction and Inattention (visual/tactile/auditory/spatial/personal) - 0(No abnormality) Initials: ko1 Signatures: Dispatcher [employer] Katherine Story Irene, RN RN iw Nieto, Roman, MD MD rn Baxter, Heather, RN RN hb Botello, Elizabeth eb Dax, Linda, RN RN ko1 Linda Verduzco RN ko1 Corrections: (The following items were deleted from the chart) 13:14 13:08 Reassessment: DR. TRUONG AT BEDSIDE TO EVALUATE PT. hb hb
--- NOTE | 2022-05-28 14:05 | EDPHYS ---
Physician Documentation [facility] Name: Emory Lynn Age: 56 yrs Sex: Male : 1965 Arrival Date: 05/28/2022 Time: 13:04 Bed 16 Private MD: ED Physician Andriy Truong HPI: 05/28 13:44 This 56 yrs old Male presents to ER via Ambulatory with complaints of Numbness Of Arm. rn 13:44 This 56 yrs old Male presents to ER via Ambulatory with complaints of Numbness Of Arm, rn weakness of arm. 13:45 The patient presents to the emergency department with weakness of the left upper rn extremity, paresthesias of the left upper extremity. 14:26 Onset: The symptoms/episode began/occurred at 10:00. Context: occurred while the rn patient was at rest. Associated signs and symptoms: Pertinent positives: paresthesias, weakness, Pertinent negatives: altered mental status, fever, neck stiffness, seizure. Severity of symptoms: At their worst the symptoms were mild in the emergency department the symptoms are unchanged. Current symptoms: paralysis or paresis, that is mild. The patient has not experienced similar symptoms in the past. The patient has not recently seen a physician. Reports last known normal at 1000, sudden onset of left arm tingling and weakness, has never happened before. No neck pain or injury.. Historical: - Allergies: 13:14 No Known Allergies; hb - Home Meds: 17:40 BP med [Active]; Simvastatin Oral [Active]; ko1 - PMHx: 13:14 Hyperlipidemia; Hypertension; hb - PSHx: 13:14 NECK; hb - Immunization history:: Adult Immunizations up to date. - Social history:: Smoking status: Patient denies any tobacco usage or history of. - Family history:: not pertinent. - Hospitalizations: : No recent hospitalization is reported. ROS: 14:26 Constitutional: Negative for fever, chills, and weight loss, Eyes: Negative for injury, rn pain, redness, and discharge, Neck: Negative for injury, pain, and swelling, Cardiovascular: Negative for chest pain, palpitations, and edema, Respiratory: Negative for shortness of breath, cough, wheezing, and pleuritic chest pain, Abdomen/GI: Negative for abdominal pain, nausea, vomiting, diarrhea, and constipation, Back: Negative for injury and pain, MS/Extremity: Negative for injury and deformity, Skin: Negative for injury, rash, and discoloration, Neuro: Negative for headache, and seizure. Exam: 13:49 ECG was reviewed by the Attending Physician. rn 14:26 Constitutional: This is a well developed, well nourished patient who is awake, alert, rn and in no acute distress. Head/Face: Normocephalic, atraumatic. Neck: Supple, full range of motion without nuchal rigidity, or vertebral point tenderness. No Meningismus. Cardiovascular: Regular rate and rhythm. No pulse deficits. Respiratory: No increased work of breathing, no retractions or nasal flaring. Skin: Warm, dry MS/ Extremity: Pulses equal, no cyanosis. Neuro: Awake and alert, GCS 15, oriented to person, place, time, and situation. Cranial nerves II-XII grossly intact. Motor strength 5/5 in all extremities without drift (patient reports subjective weakness). Decreased sensation LUE. Cerebellar exam normal. Normal gait. Vital Signs: 13:12 BP 166 / 130; Pulse 98; Resp 16; Temp 98.2; Pulse Ox 98% on R/A; Pain 0/10; hb 13:36 Weight 105.4 kg (M); iw 14:00 BP 163 / 80; Pulse 89; ko1 14:30 BP 130 / 83; Pulse 86; ko1 14:45 BP 129 / 82; Pulse 91; ko1 15:06 BP 131 / 84; Pulse 89; Resp 16; Pulse Ox 100% on R/A; iw 15:15 BP 136 / 76; Pulse 92; ko1 15:30 BP 138 / 84; Pulse 84; ko1 15:45 BP 150 / 83; Pulse 81; ko1 16:00 BP 150 / 83; Pulse 81; ko1 16:15 BP 137 / 85; Pulse 82; ko1 16:45 BP 167 / 69; Pulse 88; ko1 NIH Stroke Scale Scores: 13:14 NIHSS Score: 1 rn 13:30 NIHSS Score: 0 ko1 14:00 NIHSS Score: 0 ko1 15:00 NIHSS Score: 0 ko1 MDM: 13:05 Patient medically screened. rn 13:25 ED course: Dr. Honeycutt called, shows possible subacute infarct right garcia radiata. rn Pt within window, will TNK. Discussed all risks and benefits with patient and patient agrees to TNK. Consented. . 14:26 Data reviewed: vital signs, nurses notes, lab test result(s), EKG, radiologic studies, rn CT scan, and as a result, I will admit patient. Counseling: I had a detailed discussion with the patient and/or guardian regarding: the historical points, exam findings, and any diagnostic results supporting the discharge/admit diagnosis, lab results, radiology results, the need for further work-up and treatment in the hospital. ED course: BP at time of administration of TNK was 165/94, initially documented BP was not correct. . 14:33 ED course: Pt states symptoms have resolved, after administration of TNK. rn 05/28 13:12 Order name: Basic Metabolic Panel; Complete Time: 15: 05/28 13:12 Order name: CBC with Diff; Complete Time: 15: 05/28 13:12 Order name: Hepatic Function; Complete Time: 15: 05/28 13:12 Order name: High Sensitivity Troponin; Complete Time: 15: 05/28 13:12 Order name: Magnesium; Complete Time: 15: 05/28 13:12 Order name: Protime (+inr); Complete Time: 15: 05/28 13:12 Order name: Ptt, Activated; Complete Time: 15: 05/28 13:12 Order name: CT Stroke Brain w/o Contrast; Complete Time: 13:44 05/28 13:12 Order name: Stroke CXR 1 View; Complete Time: 15: 05/28 13:43 Order name: Glucose, Ancillary Testing; Complete Time: 13:44 EDWI 05/28 13:45 Order name: Glucose, Ancillary Testing [facility] 05/28 15:09 Order name: CT Head Angio rn 05/28 15:13 Order name: SARS RAPID 05/28 16:21 Order name: SARS-COV-2 Antigen Rapid; Complete Time: 17:09 EDWI 05/28 13:12 Order name: EKG; Complete Time: 13:13 05/28 13:12 Order name: Accucheck; Complete Time: 13:49 05/28 13:12 Order name: Cardiac monitoring; Complete Time: 13:45 05/28 13:12 Order name: EKG - Nurse/Tech; Complete Time: 13:45 05/28 13:12 Order name: IV Saline Lock; Complete Time: 13:45 eb 05/28 13:12 Order name: Labs collected and sent; Complete Time: 13:45 eb 05/28 13:12 Order name: NPO; Complete Time: 13:15 eb 05/28 13:12 Order name: O2 Per Protocol; Complete Time: 13:15 eb 05/28 13:12 Order name: O2 Sat Monitoring; Complete Time: 13:15 eb 05/28 13:12 Order name: Stroke Swallow Screen; Complete Time: 13:49 eb 05/28 15:09 Order name: Neck Angio CT rn 05/28 15:53 Order name: CT; Complete Time: 17:09 EDMS 05/28 15:53 Order name: CT; Complete Time: 17:09 EDMS 05/28 16:23 Order name: Diet Heart Healthy; Complete Time: 16:24 eb EC:49 Rate is 89 beats/min. Rhythm is regular. QRS [place] is Normal. [place] interval is normal. QRS rn interval is normal. QT interval is normal. No Q waves. T waves are Normal. No ST changes noted. Clinical impression: NSR w/ Non-specific ST/T Changes. Interpreted by me. Reviewed by me. Administered Medications: 13:43 Drug: TNK FOR STROKE - Tenecteplase 0.25 mg/kg {Co-Signature: ko1 (Linda lara RN).} Route: IV; Rate: per protocol; Site: left antecubital; 16:58 Drug: foLIC Acid 1 mg Route: IVPB; Site: left antecubital; ko1 Disposition Summary: 05/28/22 14:05 Hospitalization Ordered Hospitalization Status: Inpatient Admission rn Provider: Gómez Camarillo rn Location: Intensive Care Unit rn Condition: Stable rn Problem: new rn Symptoms: are unchanged rn Bed/Room Type: Standard rn Room Assignment: 3-(05/28/22 17:00) eb Diagnosis - Cerebral infarction, unspecified rn - Weakness rn Forms: - Medication Reconciliation Form rn - SBAR form ldr rn time excluding procedures: 14:04 Critical care time: Bedside Care: 30 minutes, Consultation: 5 minutes, Family rn Intervention: 5 minutes. Total time: 40 minutes NIH Stroke Scale - NIH Stroke Score Date: 05/28/2022 Time: 13:14 Total Score = 1 1a. Level of Consciousness (LOC) - 0(Alert) 1b. Level of Consciousness (LOC) (Month \T\ Age) - 0(Both) 1c. LOC Commands (Open \T\ Closes Eyes/Residence Life Coordinator) - 0(Both) 2. Best Gaze (Lateral Gaze Paresis) - 0(Normal) 3. Visual Field Loss - 0(No visual loss) 4. Facial Palsy - 0(Normal) 5a. Left Arm: Motor (10-second hold) - 0(No drift) 5b. Right Arm: Motor (10-second hold) - 0(No drift) 6a. Left Leg: Motor (5-second hold - always test supine) - 0(No drift) 6b. Right Leg: Motor (5-second hold - always test supine) - 0(No drift) 7. Limb Ataxia (finger/nose \T\ heel/logan - test with eyes open) - 0(Absent) 8. Sensory Loss (pinprick arms/legs/face) - 1(Mild to moderate loss) 9. Best Language: Aphasia (description/naming/reading) - 0(No aphasia) 10. Dysarthria (speech clarity - read or repeat words) - 0(Normal) 11. Extinction and Inattention (visual/tactile/auditory/spatial/personal) - 0(No abnormality) Initials: rn NIH Stroke Scale - NIH Stroke Score Date: 05/28/2022 Time: 13:30 Total Score = 0 1a. Level of Consciousness (LOC) - 0(Alert) 1b. Level of Consciousness (LOC) (Month \T\ Age) - 0(Both) 1c. LOC Commands (Open \T\ Closes Eyes/Residence Life Coordinator) - 0(Both) 2. Best Gaze (Lateral Gaze Paresis) - 0(Normal) 3. Visual Field Loss - 0(No visual loss) 4. Facial Palsy - 0(Normal) 5a. Left Arm: Motor (10-second hold) - 0(No drift) 5b. Right Arm: Motor (10-second hold) - 0(No drift) 6a. Left Leg: Motor (5-second hold - always test supine) - 0(No drift) 6b. Right Leg: Motor (5-second hold - always test supine) - 0(No drift) 7. Limb Ataxia (finger/nose \T\ heel/logan - test with eyes open) - 0(Absent) 8. Sensory Loss (pinprick arms/legs/face) - 0(Normal) 9. Best Language: Aphasia (description/naming/reading) - 0(No aphasia) 10. Dysarthria (speech clarity - read or repeat words) - 0(Normal) 11. Extinction and Inattention (visual/tactile/auditory/spatial/personal) - 0(No abnormality) Initials: ko1 NIH Stroke Scale - NIH Stroke Score Date: 05/28/2022 Time: 14:00 Total Score = 0 1a. Level of Consciousness (LOC) - 0(Alert) 1b. Level of Consciousness (LOC) (Month \T\ Age) - 0(Both) 1c. LOC Commands (Open \T\ Closes Eyes/Residence Life Coordinator) - 0(Both) 2. Best Gaze (Lateral Gaze Paresis) - 0(Normal) 3. Visual Field Loss - 0(No visual loss) 4. Facial Palsy - 0(Normal) 5a. Left Arm: Motor (10-second hold) - 0(No drift) 5b. Right Arm: Motor (10-second hold) - 0(No drift) 6a. Left Leg: Motor (5-second hold - always test supine) - 0(No drift) 6b. Right Leg: Motor (5-second hold - always test supine) - 0(No drift) 7. Limb Ataxia (finger/nose \T\ heel/logan - test with eyes open) - 0(Absent) 8. Sensory Loss (pinprick arms/legs/face) - 0(Normal) 9. Best Language: Aphasia (description/naming/reading) - 0(No aphasia) 10. Dysarthria (speech clarity - read or repeat words) - 0(Normal) 11. Extinction and Inattention (visual/tactile/auditory/spatial/personal) - 0(No abnormality) Initials: ko1 NIH Stroke Scale - NIH Stroke Score Date: 05/28/2022 Time: 15:00 Total Score = 0 1a. Level of Consciousness (LOC) - 0(Alert) 1b. Level of Consciousness (LOC) (Month \T\ Age) - 0(Both) 1c. LOC Commands (Open \T\ Closes Eyes/Residence Life Coordinator) - 0(Both) 2. Best Gaze (Lateral Gaze Paresis) - 0(Normal) 3. Visual Field Loss - 0(No visual loss) 4. Facial Palsy - 0(Normal) 5a. Left Arm: Motor (10-second hold) - 0(No drift) 5b. Right Arm: Motor (10-second hold) - 0(No drift) 6a. Left Leg: Motor (5-second hold - always test supine) - 0(No drift) 6b. Right Leg: Motor (5-second hold - always test supine) - 0(No drift) 7. Limb Ataxia (finger/nose \T\ heel/logan - test with eyes open) - 0(Absent) 8. Sensory Loss (pinprick arms/legs/face) - 0(Normal) 9. Best Language: Aphasia (description/naming/reading) - 0(No aphasia) 10. Dysarthria (speech clarity - read or repeat words) - 0(Normal) 11. Extinction and Inattention (visual/tactile/auditory/spatial/personal) - 0(No abnormality) Initials: ko1 Signatures: Dispatcher [employer] Shobha Khan RN RN iw Nieto, Roman, MD MD rn Baxter, Heather, RN RN hb Botello, Elizabeth eb Oliver, Kathy, RN RN ko1 Linda Verduzco RN ko1 Corrections: (The following items were deleted from the chart) 17:00 14:05 sergey lawson
--- NOTE | 2022-05-28 14:53 | RAD REPORT ---
EXAM DESCRIPTION: Emeka Single View05/28/2022 2:32 pm CLINICAL HISTORY: Numbness COMPARISON: 2017 FINDINGS: The lungs appear clear of acute infiltrate. The heart is normal size IMPRESSION: No acute abnormalities displayed
--- NOTE | 2022-05-28 15:20 | P.HP ---
Certification for Inpatient Patient admitted to: Inpatient With expected LOS: >2 Midnights Practitioner: I am a practitioner with admitting privileges, knowledge of patient current condition, hospital course, and medical plan of care. Services: Services provided to patient in accordance with Admission requirements found in Title 42 Section 412.3 of the Code of Federal Regulations Patient History Date of Service: 05/28/22 Reason for admission: Acute stroke History of Present Illness: 56-year-old gentleman with a history of hypertension, hyperlipidemia and COPD presented to the emergency department by private vehicle due to sudden onset left upper extremity numbness and weakness. Patient also reported transient unsteady gait. He denies any speech problem or visual disturbance. He ambulated from his private vehicle to the emergency department. Stroke alert was called in the ED, CT head report possible lacunar infarct in the right coronary radiata. Neurology informed and patient was given TNKase. He reported improvement in his left upper extremity weakness during my examination in the ED. CTA head and neck unremarkable. Patient is hospitalized for further deonna gement of acute CVA status post TNKase. Allergies No Known Allergies Allergy (Verified 07/28/18 14:54) Home Medications: Amlodipine [Norvasc*] 1 tab PO DAILY 07/28/18 Montelukast [Singulair*] 1 tab PO DAILY 07/28/18 Simvastatin 1 tab PO DAILY 07/28/18 hydroCHLOROthiazide [Hydrochlorothiazide] 1 tab PO DAILY 07/28/18 Budesonide/Formoterol Fumarate [Symbicort 80-4.5 Mcg Inhaler] 2 puff IH BID #1 hfa.aer.ad 07/29/18 predniSONE [Deltasone*] 10 mg PO BID #10 tab 07/29/18 - Past Medical/Surgical History Diabetic: No -: HTN -: Hyperlipidemia -: COPD -: neck sx -: rotator calf sx -: knee sx - Family History Mother -: Heart disease Notes: breast cancer Father -: Diabetes - Social History Smoking Status: Former smoker Alcohol use: Yes CD- Drugs: No Caffeine use: Yes Review of Systems Other: Except as documented, all other systems reviewed and negative. Physical Examination - Physical Exam General: Alert, In no apparent distress, Oriented x3 HEENT: Mucous membr. moist/pink Neck: Supple, JVD not distended Respiratory: Clear to auscultation bilaterally, Normal air movement Cardiovascular: No edema, Regular rate/rhythm, Normal S1 S2 Gastrointestinal: Soft and benign, Non-distended Musculoskeletal: No swelling Neurological: Normal strength at 5/5 x4 extr, Cranial nerves 3-12 intact Lymphatics: No axilla or inguinal lymphadenopathy - Studies Laboratory Data (last 24 hrs) 05/28/22 13:30: PT 10.9, INR 0.99, APTT 31.0 05/28/22 13:30: WBC 6.10, Hgb 17.1, Hct 50.5 H, Plt Count 189 05/28/22 13:30: Sodium 136, Potassium 3.9, BUN 14, Creatinine 0.81, Glucose 265 H, Magnesium 2.4, Total Bilirubin 0.7, AST 22, ALT 39, Alkaline Phosphatase 69 Assessment and Plan - Problems (Diagnosis) (1) Acute CVA (cerebrovascular accident) Current Visit: Yes Status: Acute (2) COPD (chronic obstructive pulmonary disease) Current Visit: Yes Status: Acute (3) Hypertension Current Visit: Yes Status: Acute (4) Hyperlipidemia Current Visit: Yes Status: Acute - Plan Admit patient to the ICU. Monitor closely post TNKase. No aspirin for the next 24 hours Obtain MRI of the brain, echocardiogram, Lipitor. Check lipid profile. Permissive hypertension. Neurology consult. PT evaluation Bedside swallow study per stroke protocol. Neurochecks. Monitor NIHSS. - Advance Directives Does patient have a Living Will: No Does patient have a Durable POA for Healthcare: No
--- NOTE | 2022-05-28 15:52 | RAD REPORT ---
EXAM DESCRIPTION: Roddy Angio05/28/2022 3:32 pm CLINICAL HISTORY: cva COMPARISON: None TECHNIQUE: 50 cc Isovue 370 was administered intravenously. 3D MIP reconstruction performed All CT scans are performed using dose optimization technique as appropriate and may include automated exposure control or mA/KV adjustment according to patient size. FINDINGS: Moderate calcified and noncalcified plaque left carotid bulb. Mild calcified plaque, carotid and right carotid bulb. The vertebral arteries are codominant. Mild calcified plaque within proximal right vertebral artery. IMPRESSION: Moderate plaque left carotid bulb resulting in an approximately 50% stenosis NASCET criteria used. Mild 0-49% stenosis Moderate 50-69% stenosis Severe 70-99% stenosis
--- NOTE | 2022-05-28 15:52 | RAD REPORT ---
EXAM DESCRIPTION: CTHead angio05/28/2022 3:30 pm CLINICAL HISTORY: CVA COMPARISON: None TECHNIQUE: CT angiogram of the head was obtained. 3D MIPS reconstruction performed. All CT scans are performed using dose optimization technique as appropriate and may include automated exposure control or mA/KV adjustment according to patient size. FINDINGS: Mild calcified plaque within the distal internal carotid arteries bilaterally. The basilar, anterior cerebral, middle cerebral and posterior cerebral arteries are normal caliber. An aneurysm is not seen. A significant stenosis is not noted. IMPRESSION: No acute abnormality is displayed
[2022-05-28 16:21] LABS: SARS-CoV-2 Antigen Rapid Res Negative (Negative)
[2022-05-28] MEDS ORDERED: FOLIC ACID 5 MG/ML VIAL ONE (16:34)
[2022-05-28] MEDS ORDERED: NA CHLORIDE 0.9% 100 ML IV ONE (16:34)
[2022-05-28] MEDS ORDERED: ONDANSETRON 4 MG/2 ML VIAL IV PRN (17:26)
[2022-05-28] MEDS ORDERED: HYDRALAZINE HCL 20 MG/ML VIAL IV PRN (17:26)
[2022-05-28] MEDS: INSULIN -REGULAR HUMAN 50 UNIT/0.5 ML ML SQ SCH ×2 (17:26→20:59)
[2022-05-28] MEDS ORDERED: ACETAMINOPHEN 500 MG TAB PO PRN (17:26)
[2022-05-28] MEDS ORDERED: HEPARIN 5000 UNIT/ML 1 ML VIAL ONE (18:02)
[2022-05-28] MEDS ORDERED: HEPARIN 500 UNIT/5 ML SYR IV ONE (18:02)
[2022-05-28 18:23] VITALS: BMI 28.2
[2022-05-28] MEDS: NA CHLORIDE 0.9% 1,000 ML IV SCH (18:34)
[2022-05-28] MEDS ORDERED: ATORVASTATIN 20 MG TAB PO SCH (21:00)
[2022-05-28 22:56] VITALS: O2SAT 96
[2022-05-29 05:05] LABS: Absolute Lymphocytes (CBC) 0.8 K/uL (0.7-4.9); Hematocrit 48.2 % (39.6-49.0); Lymphocytes % 13.6 % (15.3-44.8); MCV 97.5 fL (80-100); MPV 8.4 fL (7.6-11.3); RBC Red Blood Cell Count 4.95 M/uL (4.33-5.43)
[2022-05-29 05:12] LABS: Magnesium 2.5 mg/dL (1.8-2.4); Phosphorus 3.6 mg/dL (2.5-4.9); Potassium 4.4 mmol/L (3.5-5.1)
[2022-05-29] MEDS: NA CHLORIDE 0.9% 1,000 ML IV SCH (05:21)
[2022-05-29] MEDS: INSULIN -REGULAR HUMAN 50 UNIT/0.5 ML ML SQ SCH ×2 (07:24→11:28)
--- NOTE | 2022-05-29 11:37 | P.PN ---
Subjective Date of Service: 05/29/22 Chief Complaint: Acute stroke Patient has no new complaint. He states the numbness in his left upper extremity and weakness have all resolved. Physical Examination - Vital Signs Temperature: 98.2 F Blood Pressure: 134/85 Pulse: 63 Respirations: 16 Pulse Ox (%): 96 - Physical Exam General: Alert, In no apparent distress, Oriented x3 HEENT: Mucous membr. moist/pink Neck: JVD not distended Respiratory: Clear to auscultation bilaterally, Normal air movement Cardiovascular: No edema, Regular rate/rhythm, Normal S1 S2, No murmurs Gastrointestinal: Normal bowel sounds, Soft and benign, Non-distended, No tenderness Musculoskeletal: No swelling, No warmth Integumentary: No cyanosis Neurological: Normal strength at 5/5 x4 extr, Cranial nerves 3-12 intact - Studies Laboratory Data (last 24 hrs) 05/28/22 13:30: PT 10.9, INR 0.99, APTT 31.0 05/28/22 13:30: WBC 6.10, Hgb 17.1, Hct 50.5 H, Plt Count 189 05/28/22 13:30: Sodium 136, Potassium 3.9, BUN 14, Creatinine 0.81, Glucose 265 H, Magnesium 2.4, Total Bilirubin 0.7, AST 22, ALT 39, Alkaline Phosphatase 69 Assessment And Plan - Current Problems (Diagnosis) (1) Acute CVA (cerebrovascular accident) Current Visit: Yes Status: Acute (2) COPD (chronic obstructive pulmonary disease) Current Visit: Yes Status: Acute (3) Hypertension Current Visit: Yes Status: Acute (4) Hyperlipidemia Current Visit: Yes Status: Acute - Plan Repeat CT head within 24 hours of TNKase administration. Aspirin if no intracranial bleed. Continue Lipitor Obtain MRI of the brain, echocardiogram, Permissive hypertension. Neurology consult. PT to evaluate Patient passed bedside swallow study. No dysphagia. Neurochecks.
[2022-05-29 12:48] VITALS: TEMP 97.2
--- NOTE | 2022-05-29 14:11 | RAD REPORT ---
EXAM DESCRIPTION: CT - Head Brain Wo Cont - 05/29/2022 1:55 pm CLINICAL HISTORY: 24 hr post TNK COMPARISON: Head angio dated 05/28/2022; Ct Stroke Brain Wo Cont dated 05/28/2022 TECHNIQUE: All CT scans are performed using dose optimization technique as appropriate and may inclu de automated exposure control or mA/KV adjustment according to patient size. FINDINGS: No intracranial hemorrhage, hydrocephalus or extra-axial fluid collection.No areas of brai n edema or evidence of midline shift. Previously noted low-density area in the right garcia radiata o n the head CT from 05/28/2022 is not as well appreciated. The paranasal sinuses and mastoids are clear. The calvarium is intact. IMPRESSION: No acute intracranial abnormality.
[2022-05-29 15:14] VITALS: BP 151/83
--- NOTE | 2022-05-29 15:15 | P.DS ---
Admission Date: 05/28/22 Discharge Date: 05/29/22 Disposition: ROUTINE DISCHARGE Discharge Condition: FAIR Reason for Admission: Acute stroke - Problems (1) Acute CVA (cerebrovascular accident) Current Visit: Yes Status: Acute (2) COPD (chronic obstructive pulmonary disease) Current Visit: Yes Status: Acute (3) Hypertension Current Visit: Yes Status: Acute (4) Hyperlipidemia Current Visit: Yes Status: Acute Brief History of Present Illness: 56-year-old gentleman with a history of hypertension, hyperlipidemia and COPD presented to the emergency department by private vehicle due to sudden onset left upper extremity numbness and weakness. Patient also reported transient unsteady gait. He denies any speech problem or visual disturbance. He ambulated from his private vehicle to the emergency department. Stroke alert was called in the ED, CT head report possible lacunar infarct in the right coronary radiata. Neurology informed and patient was given TNKase. He reported improvement in his left upper extremity weakness during my examination in the ED. CTA head and neck unremarkable. Patient was hospitalized for further management of acute CVA status post TNKase. Hospital Course: Patient admitted to the ICU post TNKase for close monitoring. Patient had no neurologic symptoms and stated his left upper extremity numbness and weakness have resolved. Repeat head CT did not show any acute bleed, and there is small hypodensity lesion noted in the right garcia radiata was not seen. Patient has no problem with swallowing, he passed bedside swallow test. He is also ambulating independently and has no physical therapy needs. No speech problem, no neurologic deficit. No arrhythmia. Case discussed with Dr. Rivas and patient cleared for discharge. Thromboembolic stroke is highly unlikely. He is advised to follow with cardiology for an echocardiogram. He is prescribed aspirin, Plavix, folic acid and his Lipitor dose increased for a target LDL of less than 70. Vital Signs/Physical Exam: Temp Pulse Resp BP Pulse Ox 97.2 F 64 19 176/96 H 96 05/29/22 12:00 05/29/22 12:00 05/29/22 12:00 05/29/22 12:00 05/29/22 12:00 General: Alert, In no apparent distress, Oriented x3 HEENT: PERRLA, Mucous membr. moist/pink, EOMI, Sclerae nonicteric Neck: JVD not distended Respiratory: Clear to auscultation bilaterally, Normal air movement Cardiovascular: No edema, Regular rate/rhythm, Normal S1 S2 Gastrointestinal: Normal bowel sounds, Soft and benign, Non-distended Musculoskeletal: No swelling Integumentary: No rashes, No cyanosis Neurological: Normal speech, Normal strength at 5/5 x4 extr, Cranial nerves 3-12 intact Laboratory Data at Discharge: WBC 6.00 K/uL (4.3-10.9) 05/29/22 04:38 Hgb 16.1 g/dL (13.6-17.9) 05/29/22 04:38 Hct 48.2 % (39.6-49.0) 05/29/22 04:38 Plt Count 178 K/uL (152-406) 05/29/22 04:38 PT 10.9 SECONDS (9.5-12.5) 05/28/22 13:30 INR 0.99 05/28/22 13:30 APTT 31.0 SECONDS (24.3-36.9) 05/28/22 13:30 Sodium 137 mmol/L (136-145) 05/29/22 04:38 Potassium 4.4 mmol/L (3.5-5.1) 05/29/22 04:38 BUN 10 mg/dL (7-18) 05/29/22 04:38 Creatinine 0.58 mg/dL (0.55-1.3) 05/29/22 04:38 Glucose 151 mg/dL (74-106) H 05/29/22 04:38 Phosphorus 3.6 mg/dL (2.5-4.9) 05/29/22 04:38 Magnesium 2.5 mg/dL (1.8-2.4) H 05/29/22 04:38 Total Bilirubin 0.7 mg/dL (0.2-1.0) 05/28/22 13:30 AST 22 U/L (15-37) 05/28/22 13:30 ALT 39 U/L (12-78) 05/28/22 13:30 Alkaline Phosphatase 69 U/L (45-117) 05/28/22 13:30 Triglycerides 73 mg/dL (<150) 05/29/22 04:38 Cholesterol 218 mg/dL (<200) H 05/29/22 04:38 HDL Cholesterol 94 mg/dL (40-60) H 05/29/22 04:38 Cholesterol/HDL Ratio 2.32 05/29/22 04:38 Home Medications: Amlodipine [Norvasc*] 1 tab PO DAILY 07/28/18 Montelukast [Singulair*] 1 tab PO DAILY 07/28/18 hydroCHLOROthiazide [Hydrochlorothiazide] 1 tab PO DAILY 07/28/18 Albuterol Inhaler [Ventolin Inhaler*] 2 puff IH Q6H PRN 05/28/22 Budesonide/Glycopyr/Formoterol [Breztri Aerosphere Inhaler] 10.7 gm IH DAILY PRN 05/28/22 Cyclobenzaprine [Flexeril*] 10 mg PO TID PRN 05/28/22 Metformin ER [Glucophage ER*] 500 mg PO BID 05/28/22 Omeprazole [Prilosec] 40 mg PO DAILY 05/28/22 Tamsulosin [Flomax*] 0.4 mg PO BEDTIME 05/28/22 Tiotropium Br/Olodaterol HCl [Stiolto Respimat Inhal [place]] 4 gm IH DAILY 05/28/22 Aspirin [Aspirin EC 81 MG] 81 mg PO DAILY #30 tab 05/29/22 Atorvastatin Calcium [Lipitor] 80 mg PO BEDTIME #60 tab 05/29/22 Clopidogrel Bisulfate [Plavix] 75 mg PO DAILY #30 tab 05/29/22 Folic Acid 1 mg PO DAILY #30 tab 05/29/22 New Medications: Aspirin [Aspirin EC 81 MG] 81 mg PO DAILY #30 tab Folic Acid 1 mg PO DAILY #30 tab Atorvastatin Calcium [Lipitor] 80 mg PO BEDTIME #60 tab Clopidogrel Bisulfate [Plavix] 75 mg PO DAILY #30 tab Diet: AHA Activity: Ad cait Followup: Sirena Dubon DO [Primary Care Provider] - Lee Rivas MD [ASSOCIATE-ACTIVE - CAN ADMIT] - 1-2 Weeks Time spent managing pt's care (in minutes): 36
--- NOTE | 2022-05-30 18:43 | EKG ---
Test Date: 2022-05-28 Test Time: 13:32:58 Hospital Librarian: DIANNE MEASUREMENT RESULTS: Intervals: Rate: 89 AK: 152 QRSD: 100 QT: 378 QTc: 459 Bowman: P: 77 AK: 152 QRS: 86 T: 73 INTERPRETIVE STATEMENTS: Normal sinus rhythm Incomplete right bundle branch block Anterior infarct, age undetermined Abnormal ECG Compared to ECG 07/28/2018 07:16:02 Incomplete right bundle-branch block now present Myocardial infarct finding now present Prolonged QT interval no longer present Electronically Signed On 05-30-22 18:38:53 CDT by Álvaro Segovia
== END 2022-05-29 16:30 | disposition home or self-care (01) | DRG 63 ==
LOC: ER 13:02 → ERHOLD 15:10 → 3RD-ICU 17:39
PROVIDERS: ADMIT Internal Medicine; ATTEND Internal Medicine
DX: I63.9 Cerebral infarction, unspecified (principal); I10 Essential (primary) hypertension; E78.5 Hyperlipidemia, unspecified; J44.9 Chronic obstructive pulmonary disease, unspecified; G83.24 Monoplegia of upper limb affecting left nondominant side; R53.1 Weakness; R20.0 Anesthesia of skin; R20.2 Paresthesia of skin; R29.701 NIHSS score 1; Z79.82 Long term (current) use of aspirin; Z79.84 Long term (current) use of oral hypoglycemic drugs; Z79.02 Long term (current) use of antithrombotics/antiplatelets; Z87.891 Personal history of nicotine dependence; Z79.899 Other long term (current) drug therapy; Z20.822 Contact with and (suspected) exposure to COVID-19
CPT/HCPCS: 36415; 70450; 70496; 70498; 71045; 80048; 80061; 80076; 82947; 83735; 84100; 84484; 85025; 85610; 85730; 87811; 92977; 93005; 96374; 96375; 99285; J0360; J1642; J1644; J1815; J3101; J7030; Q9967

== ENCOUNTER 2023-11-11 06:08 | Emergency (ER) | payer BC, OTHER ==
--- OUTSIDE RECORDS SUMMARY | 2023-11-11 06:14 | XMS REPORT | Continuity of Care Document ---
Author Name Unknown Address [address] [facility] [place] [address] [facility] Address [address] [facility] [address] [place] [address] Care Team Providers Care Supervisor Screen Making Name Role Phone Brenda Puckett Attending Clinician Unavailable Sirena Dubon Attending Clinician Unavailable Payers Payer Name Policy Type Policy Number Effective Date Expirati on Date Source [employer] 53 [id number] [facility] 6 [id number] 2021 00:00:00 [facility] Problems Condition Name Condition Details Condition Category Status Onset Date Resolution Date Last Treatment Date Treating Clinician Comments Source Acute tic disorder Acute tic disorder Problem [facility] [id number] Essential hypertensi on Problem [facility] [id number] Cigarette nicotine dependence without complicati on Problem [facility] [id number] Pure hyperchole sterolemia Problem [facility] [id number] Simple chronic bronchitis Problem [facility] [id number] Encounter for general adult medical examinatio n with abnormal findings Problem [facility] [id number] Controlled type 2 diabetes mellitus without complicati on, without long-term current use of insulin Problem [facility] Gastroesop hageal reflux disease Gastroesop hageal reflux disease, esophagiti s presence not specified Problem [facility] [id number] Difficulty sleeping Problem [facility] [id number] Obesity, morbid, BMI 40.0-49.9 Problem [facility] [id number] Wheezing Problem [facility] History of polyp of colon History of colon polyps Problem [facility] Allergic rhinitis Non-season al allergic rhinitis, unspecifie d trigger Problem [facility] [id number] Chronic obstructiv e pulmonary disease with (acute) lower respirator y infection Problem [facility] [id number] Neuropathy Problem Com [facility] [id number] Constipati on, unspecifie d constipati on type Problem [facility] [id number] Benign prostatic hyperplasi a with lower urinary tract symptoms Problem [facility] [id number] COPD exacerbati on Problem [facility] Social History Social Habit Start Date Stop Date Quantity Comments Source History of Tobacco Use Current Smoker [facility] Sex Assigned At [facility] Smoking Status Start Date Stop Date Source Current Smoker 2023-05-19 00:00:00 [facility] Former Smoker 2021-10-04 00:00:00 2021-10-04 00:00:00 [facility] Medications Ordered Medication Name Filled Medication Name Start Date Stop Date Current Medication? Ordering Clinician Indication Dosage Frequency Signature (SIG) Comments Components Source Silver sulfADIAZIN E 1 % Silver sulfADIAZIN E 1 % 03-28 00:00: 00 No 1{appli cation} BID Silver sulfADIAZI NE 1 % Silver sulfADIAZIN E 1 % Silver sulfADIAZIN E 1 % 03-28 00:00: 00 No 1{appli cation} BID Silver sulfADIAZI NE 1 % Silver sulfADIAZIN E 1 % Silver sulfADIAZIN E 1 % 03-28 00:00: 00 No 1{appli cation} BID Silver sulfADIAZI NE 1 % Silver sulfADIAZIN E 1 % Silver sulfADIAZIN E 1 % 3-0 8-22 00:00: 00 No 1{appli cation} BID Silver sulfADIAZI NE 1 % Silver sulfADIAZIN E 1 % Silver sulfADIAZIN E 1 % 2023-0 8-22 00:00: 00 No 1{appli cation} BID Silver sulfADIAZI NE 1 % Silver sulfADIAZIN E 1 % Silver sulfADIAZIN E 1 % 3-0 8-22 00:00: 00 No 1{appli cation} BID Silver sulfADIAZI NE 1 % Silver sulfADIAZIN E 1 % Silver sulfADIAZIN E 1 % 3-0 8-22 00:00: 00 No 1{appli cation} BID Silver sulfADIAZI NE 1 % Silver sulfADIAZIN E 1 % Silver sulfADIAZIN E 1 % 3-0 8-22 00:00: 00 No 1{appli cation} BID Silver sulfADIAZI NE 1 % Silver sulfADIAZIN E 1 % Silver sulfADIAZIN E 1 % 3-0 822 00:00: 00 No 1{appli cation} BID Silver sulfADIAZI NE 1 % Silver sulfADIAZIN E 1 % Silver sulfADIAZIN E 1 % 3-0 822 00:00: 00 No 1{appli cation} BID Silver sulfADIAZI NE 1 % Silver sulfADIAZIN E 1 % Silver sulfADIAZIN E 1 % 3-0 822 00:00: 00 No 1{appli cation} BID Silver sulfADIAZI NE 1 % Silver sulfADIAZIN E 1 % Silver sulfADIAZIN E 1 % 3-0 8-22 00:00: 00 No 1{appli cation} BID Silver sulfADIAZI NE 1 % Silver sulfADIAZIN E 1 % Silver sulfADIAZIN E 1 % 3-0 8-22 00:00: 00 No 1{appli cation} BID Silver sulfADIAZI NE 1 % Silver sulfADIAZIN E 1 % Silver sulfADIAZIN E 1 % 3-0 8-22 00:00: 00 No 1{appli cation} BID Silver sulfADIAZI NE 1 % Silver sulfADIAZIN E 1 % Silver sulfADIAZIN E 1 % 3-0 8-22 00:00: 00 No 1{appli cation} BID Silver sulfADIAZI NE 1 % Clotrimazol e 10 MG Clotrimazol e 10 MG 2020-08 1-11 00:00: 00 06-27 00:00 :00 No TID Clotrimazo le 10 MG Vibramycin 100 MG Vibramycin 100 MG 9-03 00:00: 00 04-23 00:00 :00 No 1{capsu le} QD Vibramycin 100 MG Kenalog (Triamcinol one) Kenalog (Triamcinol one) 04-06 00:00: 00 No 40mg [facility] Kenalog (Triamcinol one) Kenalog (Triamcinol one) 04-06 00:00: 00 No 40mg [facility] Kenalog (Triamcinol one) Kenalog (Triamcinol one) 04-06 00:00: 00 No [facility] Kenalog (Triamcinol one) Kenalog (Triamcinol one) 04-06 00:00: 00 No 40mg [facility] Kenalog (Triamcinol one) Kenalog (Triamcinol one) 04-06 00:00: 00 No 40mg [facility] Kenalog (Triamcinol one) Kenalog (Triamcinol one) 04-06 00:00: 00 No 40mg [facility] Kenalog (Triamcinol one) Kenalog (Triamcinol one) 04-06 00:00: 00 No 40mg [facility] Kenalog (Triamcinol one) Kenalog (Triamcinol one) 8 00:00: 00 No 40mg [facility] Kenalog (Triamcinol one) Kenalog (Triamcinol one) 8 00:00: 00 No 40mg [facility] Kenalog (Triamcinol one) Kenalog (Triamcinol one) 8 00:00: 00 No 40mg [facility] Kenalog (Triamcinol one) Kenalog (Triamcinol one) 8 00:00: 00 No 40mg [facility] Kenalog (Triamcinol one) Kenalog (Triamcinol one) 0 8 00:00: 00 No 40mg [facility] Kenalog (Triamcinol one) Kenalog (Triamcinol one) 0 8 00:00: 00 No 40mg [facility] Kenalog (Triamcinol one) Kenalog (Triamcinol one) 8 00:00: 00 No 40mg [facility] Kenalog (Triamcinol one) Kenalog (Triamcinol one) 0 8 00:00: 00 No 40mg [facility] Kenalog (Triamcinol one) Kenalog (Triamcinol one) 8 00:00: 00 No 40mg [facility] Kenalog (Triamcinol one) Kenalog (Triamcinol one) 8 00:00: 00 No 40mg [facility] Kenalog (Triamcinol one) Kenalog (Triamcinol one) 0 8 00:00: 00 No 40mg [facility] Kenalog (Triamcinol one) Kenalog (Triamcinol one) 0 8 00:00: 00 No 40mg [facility] Kenalog (Triamcinol one) Kenalog (Triamcinol one) 0 8 00:00: 00 No 40mg [facility] DuoNeb 0.5-2.5 (3) MG/3ML DuoNeb 0.5-2.5 (3) MG/3ML 0 7-07 00:00: 00 No 3{ml_as _needed } QID DuoNeb 0.5-2.5 (3) MG/3ML DuoNeb 0.5-2.5 (3) MG/3ML DuoNeb 0.5-2.5 (3) MG/3ML 0 02-10 00:00: 00 No 3{ml_as _needed } QID DuoNeb 0.5-2.5 (3) MG/3ML DuoNeb 0.5-2.5 (3) MG/3ML DuoNeb 0.5-2.5 (3) MG/3ML 0 02-10 00:00: 00 No 3{ml_as _needed } QID DuoNeb 0.5-2.5 (3) MG/3ML [facility] DuoNeb 0.5-2.5 (3) MG/3ML DuoNeb 0.5-2.5 (3) MG/3ML 0 02-10 00:00: 00 No 3{ml_as _needed } QID DuoNeb 0.5-2.5 (3) MG/3ML DuoNeb 0.5-2.5 (3) MG/3ML DuoNeb 0.5-2.5 (3) MG/3ML 0 02-10 00:00: 00 No 3{ml_as _needed } QID DuoNeb 0.5-2.5 (3) MG/3ML DuoNeb 0.5-2.5 (3) MG/3ML DuoNeb 0.5-2.5 (3) MG/3ML 0 02-10 00:00: 00 No 3{ml_as _needed } QID DuoNeb 0.5-2.5 (3) MG/3ML DuoNeb 0.5-2.5 (3) MG/3ML DuoNeb 0.5-2.5 (3) MG/3ML 0 02-10 00:00: 00 No 3{ml_as _needed } QID DuoNeb 0.5-2.5 (3) MG/3ML DuoNeb 0.5-2.5 (3) MG/3ML DuoNeb 0.5-2.5 (3) MG/3ML 2021-0 7-07 00:00: 00 No 3{ml_as _needed } QID DuoNeb 0.5-2.5 (3) MG/3ML DuoNeb 0.5-2.5 (3) MG/3ML DuoNeb 0.5-2.5 (3) MG/3ML 0 02-10 00:00: 00 No 3{ml_as _needed } QID DuoNeb 0.5-2.5 (3) MG/3ML DuoNeb 0.5-2.5 (3) MG/3ML DuoNeb 0.5-2.5 (3) MG/3ML 0 02-10 00:00: 00 No 3{ml_as _needed } QID DuoNeb 0.5-2.5 (3) MG/3ML DuoNeb 0.5-2.5 (3) MG/3ML DuoNeb 0.5-2.5 (3) MG/3ML 02-10 00:00: 00 No 3{ml_as _needed } QID DuoNeb 0.5-2.5 (3) MG/3ML DuoNeb 0.5-2.5 (3) MG/3ML DuoNeb 0.5-2.5 (3) MG/3ML 0 02-10 00:00: 00 No 3{ml_as _needed } QID DuoNeb 0.5-2.5 (3) MG/3ML DuoNeb 0.5-2.5 (3) MG/3ML DuoNeb 0.5-2.5 (3) MG/3ML 0 02-10 00:00: 00 No 3{ml_as _needed } QID DuoNeb 0.5-2.5 (3) MG/3ML DuoNeb 0.5-2.5 (3) MG/3ML DuoNeb 0.5-2.5 (3) MG/3ML 0 02-10 00:00: 00 No 3{ml_as _needed } QID DuoNeb 0.5-2.5 (3) MG/3ML DuoNeb 0.5-2.5 (3) MG/3ML DuoNeb 0.5-2.5 (3) MG/3ML 0 02-10 00:00: 00 No 3{ml_as _needed } QID DuoNeb 0.5-2.5 (3) MG/3ML DuoNeb 0.5-2.5 (3) MG/3ML DuoNeb 0.5-2.5 (3) MG/3ML 0 02-10 00:00: 00 No 3{ml_as _needed } QID DuoNeb 0.5-2.5 (3) MG/3ML DuoNeb 0.5-2.5 (3) MG/3ML DuoNeb 0.5-2.5 (3) MG/3ML 02-10 00:00: 00 No 3{ml_as _needed } QID DuoNeb 0.5-2.5 (3) MG/3ML DuoNeb 0.5-2.5 (3) MG/3ML DuoNeb 0.5-2.5 (3) MG/3ML 0 02-10 00:00: 00 No 3{ml_as _needed } QID DuoNeb 0.5-2.5 (3) MG/3ML DuoNeb 0.5-2.5 (3) MG/3ML DuoNeb 0.5-2.5 (3) MG/3ML 0 02-10 00:00: 00 No 3{ml_as _needed } QID DuoNeb 0.5-2.5 (3) MG/3ML DuoNeb 0.5-2.5 (3) MG/3ML DuoNeb 0.5-2.5 (3) MG/3ML 0 02-10 00:00: 00 No 3{ml_as _needed } QID DuoNeb 0.5-2.5 (3) MG/3ML DuoNeb 0.5-2.5 (3) MG/3ML DuoNeb 0.5-2.5 (3) MG/3ML 0 02-10 00:00: 00 No 3{ml_as _needed } QID DuoNeb 0.5-2.5 (3) MG/3ML DuoNeb 0.5-2.5 (3) MG/3ML DuoNeb 0.5-2.5 (3) MG/3ML 02-10 00:00: 00 No 3{ml_as _needed } QID DuoNeb 0.5-2.5 (3) MG/3ML Doxycycline Monohydrate 100 MG Doxycycline Monohydrate 100 MG 01-20 00:00: 00 No 1{capsu le} BID Doxycyclin e Monohydrat e 100 MG predniSONE 10 MG predniSONE 10 MG 01-20 00:00: 00 No QD predniSONE 10 MG predniSONE 10 MG predniSONE 10 MG 01-20 00:00: 00 No QD predniSONE 10 MG [facility] Doxycycline Monohydrate 100 MG Doxycycline Monohydrate 100 MG 01-20 00:00: 00 No 1{capsu le} BID Doxycyclin e Monohydrat e 100 MG [facility] Baclofen Baclofen 08 00:00: 00 18 00:00 :00 No Na Dubon 1 tablet with food or milk [facility] PredniSONE PredniSONE 02-13 00:00: 00 Yes Na Dubon 2 tablets dailyx 5 days then 1 tablet daily x 5 days [facility] predniSONE 20 MG predniSONE 20 MG 0 02-13 00:00: 00 No QD predniSONE 20 MG predniSONE 20 MG predniSONE 20 MG 02-13 00:00: 00 No QD predniSONE 20 MG [facility] PredniSONE 20 MG PredniSONE 20 MG 10 00:00: 00 No QD PredniSONE 20 MG Montelukast Sodium Montelukast Sodium 2018-08 00:00: 00 Yes Na Dubon 1 tablet [facility] Flonase Flonase 2018-08 00:00: 00 Yes Na Dubon 2 spray in each nostril [facility] Flonase 50 MCG/ACT Flonase 50 MCG/ACT 2018-08 00:00: 00 No 2{spray _in_eac h_nostr il} QD Flonase 50 MCG/ACT Flonase 50 MCG/ACT Flonase 50 MCG/ACT 2018-08 2-13 00:00: 00 No 2{spray _in_eac h_nostr il} QD Flonase 50 MCG/ACT [facility] Flonase 50 MCG/ACT Flonase 50 MCG/ACT 2018-08- 00:00: 00 No 2{spray _in_eac h_nostr il} QD Flonase 50 MCG/ACT Kenalog (Triamcinol one) Kenalog (Triamcinol one) 0 02-26 00:00: 00 No 40mg [facility] Kenalog (Triamcinol one) Kenalog (Triamcinol one) 02-26 00:00: 00 No 40mg [facility] Kenalog (Triamcinol one) Kenalog (Triamcinol one) 02-26 00:00: 00 No 40mg [facility] Kenalog (Triamcinol one) Kenalog (Triamcinol one) 02-26 00:00: 00 No 40mg [facility] Kenalog (Triamcinol one) Kenalog (Triamcinol one) 02-26 00:00: 00 No 40mg [facility] Kenalog (Triamcinol one) Kenalog (Triamcinol one) 0 02-26 00:00: 00 No 40mg [facility] Kenalog (Triamcinol one) Kenalog (Triamcinol one) 02-26 00:00: 00 No 40mg [facility] Kenalog (Triamcinol one) Kenalog (Triamcinol one) 0 02-26 00:00: 00 No 40mg [facility] Kenalog (Triamcinol one) Kenalog (Triamcinol one) 0 02-26 00:00: 00 No 40mg [facility] Kenalog (Triamcinol one) Kenalog (Triamcinol one) 02-26 00:00: 00 No 40mg [facility] Kenalog (Triamcinol one) Kenalog (Triamcinol one) 02-26 00:00: 00 No 40mg [facility] Kenalog (Triamcinol one) Kenalog (Triamcinol one) 02-26 00:00: 00 No 40mg [facility] Kenalog (Triamcinol one) Kenalog (Triamcinol one) 02-26 00:00: 00 No 40mg [facility] Kenalog (Triamcinol one) Kenalog (Triamcinol one) 02-26 00:00: 00 No 40mg [facility] Kenalog (Triamcinol one) Kenalog (Triamcinol one) 02-26 00:00: 00 No 40mg [facility] Kenalog (Triamcinol one) Kenalog (Triamcinol one) 02-26 00:00: 00 No 40mg [facility] Kenalog (Triamcinol one) Kenalog (Triamcinol one) 02-26 00:00: 00 No 40mg [facility] Kenalog (Triamcinol one) Kenalog (Triamcinol one) 02-26 00:00: 00 No 40mg [facility] Kenalog (Triamcinol one) Kenalog (Triamcinol one) 02-26 00:00: 00 No 40mg [facility] Kenalog (Triamcinol one) Kenalog (Triamcinol one) 02-26 00:00: 00 No 40mg [facility] Singulair Singulair Yes Na Dubon TAKE ONE TABLET BY MOUTH DAILY [facility] Norvasc Norvasc Yes Na Dubon take one tablet by mouth daily [facility] Zocor Zocor Yes Na Dubon take one tablet by mouth daily [facility] Ventolin HFA Ventolin HFA Yes Na Dubon 1 puff as needed [facility] Omeprazole Omeprazole Yes Na Dubon 1 capsule [facility] Stiolto Respimat Stiolto Respimat Yes Na Dubon 2 puffs [facility] Metformin HCl Metformin HCl Yes Na Dubon 1 tablet with meals [facility] Hydrochloro thiazide Hydrochloro thiazide Yes Na Dubon TAKE ONE TABLET BY MOUTH DAILY [facility] Atorvastati n Calcium Atorvastati n Calcium Yes Na Dubon 1 tablet [facility] Metformin HCl 1000 MG Metformin HCl 1000 MG No 1{table t_with_ a_meal} BID Metformin HCl 1000 MG Breztri Aerosphere 160-9-4.8 MCG/ACT Breztri Aerosphere 160-9-4.8 MCG/ACT No 2{puffs } BID Breztri Aerosphere 160-9-4.8 MCG/ACT Jardiance 25 MG Jardiance 25 MG No 1{table t} QD Jardiance 25 MG Cyclobenzap rine HCl 10 MG Cyclobenzap rine HCl 10 MG No Cyclobenza elmer HCl 10 MG Zocor 40 MG Zocor 40 MG No Zo cor 40 MG hydroCHLORO thiazide 12.5 MG hydroCHLORO thiazide 12.5 MG No hydroCHLOR Othiazide 12.5 MG Atorvastati n Calcium 40 MG Atorvastati n Calcium 40 MG No QD Atorvastat in Calcium 40 MG predniSONE 10 MG predniSONE 10 MG No 1{table t} QD predniSONE 10 MG metFORMIN HCl 500 MG metFORMIN HCl 500 MG No 1{table t_with_ meals} BID metFORMIN HCl 500 MG Norvasc 2.5 MG Norvasc 2.5 MG No Norvasc 2.5 MG Omeprazole 40 MG Omeprazole 40 MG No QD Omeprazole 40 MG amLODIPine Besylate 2.5 MG amLODIPine Besylate 2.5 MG No 1{table t} QD amLODIPine Besylate 2.5 MG Montelukast Sodium 10 MG Montelukast Sodium 10 MG No QD Montelukas t Sodium 10 MG Gabapentin 600 MG Gabapentin 600 MG No 1{capsu le} TID Gabapentin 600 MG Tamsulosin HCl 0.4 MG Tamsulosin HCl 0.4 MG No 1{capsu le} QD Tamsulosin HCl 0.4 MG Cyclobenzap rine HCl 10 MG Cyclobenzap rine HCl 10 MG No Cyclobenza elmer HCl 10 MG Incruse Ellipta 62.5 MCG/INH Incruse Ellipta 62.5 MCG/INH No 1{puff} QD Incruse Ellipta 62.5 MCG/INH Ventolin HFA 108 (90 Base) MCG/ACT Ventolin HFA 108 (90 Base) MCG/ACT No 1{puff_ as_need ed} 6xD Ventolin HFA 108 (90 Base) MCG/ACT hydroCHLORO thiazide 12.5 MG hydroCHLORO thiazide 12.5 MG No hydroCHLOR Othiazide 12.5 MG Montelukast Sodium 10 MG Montelukast Sodium 10 MG No Montelukas t Sodium 10 MG Symbicort 160-4.5 MCG/ACT Symbicort 160-4.5 MCG/ACT No 2{puffs } BID Symbicort 160-4.5 MCG/ACT Atorvastati n Calcium 40 MG Atorvastati n Calcium 40 MG No 1{table t} QD Atorvastat in Calcium 40 MG Singulair 10 MG Singulair 10 MG No Singulair 10 MG Zocor 40 MG Zocor 40 MG No Zo cor 40 MG Omeprazole 40 MG Omeprazole 40 MG No 1{capsu le} QD Omeprazole 40 MG Stiolto Respimat 2.5mcg/2.5m cg Stiolto Respimat 2.5mcg/2.5m cg No 2{puffs } QD Stiolto Respimat 2.5mcg/2.5 mcg Jardiance 25 MG Jardiance 25 MG No 1{table t} QD Jardiance 25 MG Ventolin HFA 108 (90 Base) MCG/ACT Ventolin HFA 108 (90 Base) MCG/ACT No 1{puff_ as_need ed} 6xD Ventolin HFA 108 (90 Base) MCG/ACT [facility] Omeprazole 40 MG Omeprazole 40 MG No 1{capsu le} QD Omeprazole 40 MG [facility] metFORMIN HCl 1000 MG metFORMIN HCl 1000 MG No 1{table t_with_ a_meal} BID metFORMIN HCl 1000 MG [facility] Symbicort 160-4.5 MCG/ACT Symbicort 160-4.5 MCG/ACT No 2{puffs } BID Symbicort 160-4.5 MCG/ACT [facility] Norvasc 2.5 MG Norvasc 2.5 MG No Norvasc 2.5 MG [facility] hydroCHLORO thiazide 12.5 MG hydroCHLORO thiazide 12.5 MG No hydroCHLOR Othiazide 12.5 MG [facility] Tamsulosin HCl 0.4 MG Tamsulosin HCl 0.4 MG No 1{capsu le} QD Tamsulosin HCl 0.4 MG [facility] Zocor 40 MG Zocor 40 MG No Zo cor 40 MG [facility] Atorvastati n Calcium 40 MG Atorvastati n Calcium 40 MG No 1{table t} QD Atorvastat in Calcium 40 MG [facility] Montelukast Sodium 10 MG Montelukast Sodium 10 MG No Montelukas t Sodium 10 MG [facility] Stiolto Respimat 2.5mcg/2.5m cg Stiolto Respimat 2.5mcg/2.5m cg No 2{puffs } QD Stiolto Respimat 2.5mcg/2.5 mcg [facility] Singulair 10 MG Singulair 10 MG No Singulair 10 MG [facility] Incruse Ellipta 62.5 MCG/INH Incruse Ellipta 62.5 MCG/INH No 1{puff} QD Incruse Ellipta 62.5 MCG/INH [facility] Cyclobenzap rine HCl 10 MG Cyclobenzap rine HCl 10 MG No Cyclobenza elmer HCl 10 MG [facility] Jardiance 25 MG Jardiance 25 MG No 1{table t} QD Jardiance 25 MG [facility] Breztri Aerosphere 160-9-4.8 MCG/ACT Breztri Aerosphere 160-9-4.8 MCG/ACT No 2{puffs } BID Breztri Aerosphere 160-9-4.8 MCG/ACT amLODIPine Besylate 2.5 MG amLODIPine Besylate 2.5 MG No 1{table t} QD amLODIPine Besylate 2.5 MG Atorvastati n Calcium 40 MG Atorvastati n Calcium 40 MG No 1{table t} QD Atorvastat in Calcium 40 MG Breztri Aerosphere 160-9-4.8 MCG/ACT Breztri Aerosphere 160-9-4.8 MCG/ACT No 2{puffs } BID Breztri Aerosphere 160-9-4.8 MCG/ACT Tamsulosin HCl 0.4 MG Tamsulosin HCl 0.4 MG No 1{capsu le} QD Tamsulosin HCl 0.4 MG hydroCHLORO thiazide 12.5 MG hydroCHLORO thiazide 12.5 MG No hydroCHLOR Othiazide 12.5 MG amLODIPine Besylate 2.5 MG amLODIPine Besylate 2.5 MG No 1{table t} QD amLODIPine Besylate 2.5 MG Ventolin HFA 108 (90 Base) MCG/ACT Ventolin HFA 108 (90 Base) MCG/ACT No 1{puff_ as_need ed} 6xD Ventolin HFA 108 (90 Base) MCG/ACT Montelukast Sodium 10 MG Montelukast Sodium 10 MG No 1{table t} QD Montelukas t Sodium 10 MG Zocor 40 MG Zocor 40 MG No Zo cor 40 MG Jardiance 25 MG Jardiance 25 MG No Jardiance 25 MG metFORMIN HCl 1000 MG metFORMIN HCl 1000 MG No metFORMIN HCl 1000 MG Omeprazole 40 MG Omeprazole 40 MG No Omeprazole 40 MG metFORMIN HCl 500 MG metFORMIN HCl 500 MG No 1{table t_with_ meals} BID metFORMIN HCl 500 MG Cyclobenzap rine HCl 10 MG Cyclobenzap rine HCl 10 MG No Cyclobenza elmer HCl 10 MG Montelukast Sodium 10 MG Montelukast Sodium 10 MG No Montelukas t Sodium 10 MG Jardiance 25 MG Jardiance 25 MG No Jardiance 25 MG Cyclobenzap rine HCl 10 MG Cyclobenzap rine HCl 10 MG No Cyclobenza elmer HCl 10 MG Atorvastati n Calcium 40 MG Atorvastati n Calcium 40 MG No Atorvastat in Calcium 40 MG Omeprazole 40 MG Omeprazole 40 MG No Omeprazole 40 MG Breztri Aerosphere 160-9-4.8 MCG/ACT Breztri Aerosphere 160-9-4.8 MCG/ACT No 2{puffs } BID Breztri Aerosphere 160-9-4.8 MCG/ACT hydroCHLORO thiazide 12.5 MG hydroCHLORO thiazide 12.5 MG No hydroCHLOR Othiazide 12.5 MG Tamsulosin HCl 0.4 MG Tamsulosin HCl 0.4 MG No Tamsulosin HCl 0.4 MG amLODIPine Besylate 2.5 MG amLODIPine Besylate 2.5 MG No amLODIPine Besylate 2.5 MG metFORMIN HCl 1000 MG metFORMIN HCl 1000 MG No metFORMIN HCl 1000 MG metFORMIN HCl 500 MG metFORMIN HCl 500 MG No 1{table t_with_ meals} BID metFORMIN HCl 500 MG Zocor 40 MG Zocor 40 MG No Zo cor 40 MG Ventolin HFA 108 (90 Base) MCG/ACT Ventolin HFA 108 (90 Base) MCG/ACT No 1{puff_ as_need ed} 6xD Ventolin HFA 108 (90 Base) MCG/ACT Breztri Aerosphere 160-9-4.8 MCG/ACT Breztri Aerosphere 160-9-4.8 MCG/ACT No 2{puffs } BID Breztri Aerosphere 160-9-4.8 MCG/ACT Atorvastati n Calcium 40 MG Atorvastati n Calcium 40 MG No Atorvastat in Calcium 40 MG hydroCHLORO thiazide 12.5 MG hydroCHLORO thiazide 12.5 MG No hydroCHLOR Othiazide 12.5 MG amLODIPine Besylate 2.5 MG amLODIPine Besylate 2.5 MG No amLODIPine Besylate 2.5 MG Zocor 40 MG Zocor 40 MG No Zo cor 40 MG Ventolin HFA 108 (90 Base) MCG/ACT Ventolin HFA 108 (90 Base) MCG/ACT No 1{puff_ as_need ed} 6xD Ventolin HFA 108 (90 Base) MCG/ACT Omeprazole 40 MG Omeprazole 40 MG No Omeprazole 40 MG Cyclobenzap rine HCl 10 MG Cyclobenzap rine HCl 10 MG No Cyclobenza elmer HCl 10 MG Montelukast Sodium 10 MG Montelukast Sodium 10 MG No Montelukas t Sodium 10 MG metFORMIN HCl 1000 MG metFORMIN HCl 1000 MG No metFORMIN HCl 1000 MG Tamsulosin HCl 0.4 MG Tamsulosin HCl 0.4 MG No Tamsulosin HCl 0.4 MG metFORMIN HCl 500 MG metFORMIN HCl 500 MG No 1{table t_with_ meals} BID metFORMIN HCl 500 MG Jardiance 25 MG Jardiance 25 MG No Jardiance 25 MG Breztri Aerosphere 160-9-4.8 MCG/ACT Breztri Aerosphere 160-9-4.8 MCG/ACT No 2{puffs } BID Breztri Aerosphere 160-9-4.8 MCG/ACT Atorvastati n Calcium 40 MG Atorvastati n Calcium 40 MG No Atorvastat in Calcium 40 MG hydroCHLORO thiazide 12.5 MG hydroCHLORO thiazide 12.5 MG No hydroCHLOR Othiazide 12.5 MG amLODIPine Besylate 2.5 MG amLODIPine Besylate 2.5 MG No amLODIPine Besylate 2.5 MG Zocor 40 MG Zocor 40 MG No Zo cor 40 MG Ventolin HFA 108 (90 Base) MCG/ACT Ventolin HFA 108 (90 Base) MCG/ACT No 1{puff_ as_need ed} 6xD Ventolin HFA 108 (90 Base) MCG/ACT Omeprazole 40 MG Omeprazole 40 MG No Omeprazole 40 MG Cyclobenzap rine HCl 10 MG Cyclobenzap rine HCl 10 MG No Cyclobenza elmer HCl 10 MG Montelukast Sodium 10 MG Montelukast Sodium 10 MG No Montelukas t Sodium 10 MG metFORMIN HCl 1000 MG metFORMIN HCl 1000 MG No metFORMIN HCl 1000 MG Tamsulosin HCl 0.4 MG Tamsulosin HCl 0.4 MG No Tamsulosin HCl 0.4 MG metFORMIN HCl 500 MG metFORMIN HCl 500 MG No 1{table t_with_ meals} BID metFORMIN HCl 500 MG Jardiance 25 MG Jardiance 25 MG No Jardiance 25 MG Breztri Aerosphere 160-9-4.8 MCG/ACT Breztri Aerosphere 160-9-4.8 MCG/ACT No 2{puffs } BID Breztri Aerosphere 160-9-4.8 MCG/ACT Atorvastati n Calcium 40 MG Atorvastati n Calcium 40 MG No Atorvastat in Calcium 40 MG Tamsulosin HCl 0.4 MG Tamsulosin HCl 0.4 MG No Tamsulosin HCl 0.4 MG Ventolin HFA 108 (90 Base) MCG/ACT Ventolin HFA 108 (90 Base) MCG/ACT No 1{puff_ as_need ed} 6xD Ventolin HFA 108 (90 Base) MCG/ACT Omeprazole 40 MG Omeprazole 40 MG No QD Omeprazole 40 MG Jardiance 25 MG Jardiance 25 MG No Jardiance 25 MG Montelukast Sodium 10 MG Montelukast Sodium 10 MG No QD Montelukas t Sodium 10 MG Cyclobenzap rine HCl 10 MG Cyclobenzap rine HCl 10 MG No Cyclobenza elmer HCl 10 MG hydroCHLORO thiazide 12.5 MG hydroCHLORO thiazide 12.5 MG No hydroCHLOR Othiazide 12.5 MG Zocor 40 MG Zocor 40 MG No Zo cor 40 MG metFORMIN HCl 1000 MG metFORMIN HCl 1000 MG No metFORMIN HCl 1000 MG metFORMIN HCl 500 MG metFORMIN HCl 500 MG No 1{table t_with_ meals} BID metFORMIN HCl 500 MG amLODIPine Besylate 2.5 MG amLODIPine Besylate 2.5 MG No QD amLODIPine Besylate 2.5 MG Ventolin HFA 108 (90 Base) MCG/ACT Ventolin HFA 108 (90 Base) MCG/ACT No 1{puff_ as_need ed} 6xD Ventolin HFA 108 (90 Base) MCG/ACT Breztri Aerosphere 160-9-4.8 MCG/ACT Breztri [facility]osphere 160-9-4.8 MCG/ACT No 2{puffs } BID Bre[facility]tri [facility]osphere 160-9-4.8 MCG/ACT Jardiance 25 MG Jardiance 25 MG No 1{table t} QD Jardiance 25 MG hydroCHLORO thiazide 12.5 MG hydroCHLORO thiazide 12.5 MG No hydroCHLOR Othiazide 12.5 MG Atorvastati n Calcium 40 MG Atorvastati n Calcium 40 MG No BID Atorvastat in Calcium 40 MG amLODIPine Besylate 2.5 MG amLODIPine Besylate 2.5 MG No 1{table t} QD amLODIPine Besylate 2.5 MG Omeprazole 40 MG Omeprazole 40 MG No QD Omeprazole 40 MG metFORMIN HCl 500 MG metFORMIN HCl 500 MG No 1{table t_with_ meals} BID metFORMIN HCl 500 MG Zocor 40 MG Zocor 40 MG No Zo cor 40 MG predniSONE 10 MG predniSONE 10 MG No 1{table t} QD predniSONE 10 MG Montelukast Sodium 10 MG Montelukast Sodium 10 MG No QD Montelukas t Sodium 10 MG Cyclobenzap rine HCl 10 MG Cyclobenzap rine HCl 10 MG No Cyclobenza elmer HCl 10 MG Gabapentin 600 MG Gabapentin 600 MG No 1{capsu le} TID Gabapentin 600 MG Ventolin HFA 108 (90 Base) MCG/ACT Ventolin HFA 108 (90 Base) MCG/ACT No 1{puff_ as_need ed} 6xD Ventolin HFA 108 (90 Base) MCG/ACT Breztri [facility]osphere 160-9-4.8 MCG/ACT Bre[facility]tri [facility]osphere 160-9-4.8 MCG/ACT No 2{puffs } BID Bre[facility]tri Aerosphere 160-9-4.8 MCG/ACT Jardiance 25 MG Jardiance 25 MG No 1{table t} QD Jardiance 25 MG hydroCHLORO thiazide 12.5 MG hydroCHLORO thiazide 12.5 MG No hydroCHLOR Othiazide 12.5 MG Atorvastati n Calcium 40 MG Atorvastati n Calcium 40 MG No BID Atorvastat in Calcium 40 MG amLODIPine Besylate 2.5 MG amLODIPine Besylate 2.5 MG No 1{table t} QD amLODIPine Besylate 2.5 MG Omeprazole 40 MG Omeprazole 40 MG No QD Omeprazole 40 MG metFORMIN HCl 500 MG metFORMIN HCl 500 MG No 1{table t_with_ meals} BID metFORMIN HCl 500 MG Zocor 40 MG Zocor 40 MG No Zo cor 40 MG predniSONE 10 MG predniSONE 10 MG No 1{table t} QD predniSONE 10 MG Montelukast Sodium 10 MG Montelukast Sodium 10 MG No QD Montelukas t Sodium 10 MG Cyclobenzap rine HCl 10 MG Cyclobenzap rine HCl 10 MG No Cyclobenza elmer HCl 10 MG Gabapentin 600 MG Gabapentin 600 MG No 1{capsu le} TID Gabapentin 600 MG Ventolin HFA 108 (90 Base) MCG/ACT Ventolin HFA 108 (90 Base) MCG/ACT No 1{puff_ as_need ed} 6xD Ventolin HFA 108 (90 Base) MCG/ACT Bre[facility]tri [facility]osphere 160-9-4.8 MCG/ACT Bre[facility]tri [facility]osphere 160-9-4.8 MCG/ACT No 2{puffs } BID Bre[facility]tri Aerosphere 160-9-4.8 MCG/ACT Jardiance 25 MG Jardiance 25 MG No 1{table t} QD Jardiance 25 MG hydroCHLORO thiazide 12.5 MG hydroCHLORO thiazide 12.5 MG No hydroCHLOR Othiazide 12.5 MG Atorvastati n Calcium 40 MG Atorvastati n Calcium 40 MG No BID Atorvastat in Calcium 40 MG amLODIPine Besylate 2.5 MG amLODIPine Besylate 2.5 MG No 1{table t} QD amLODIPine Besylate 2.5 MG Omeprazole 40 MG Omeprazole 40 MG No QD Omeprazole 40 MG metFORMIN HCl 500 MG metFORMIN HCl 500 MG No 1{table t_with_ meals} BID metFORMIN HCl 500 MG Zocor 40 MG Zocor 40 MG No Zo cor 40 MG predniSONE 10 MG predniSONE 10 MG No 1{table t} QD predniSONE 10 MG Montelukast Sodium 10 MG Montelukast Sodium 10 MG No QD Montelukas t Sodium 10 MG Cyclobenzap rine HCl 10 MG Cyclobenzap rine HCl 10 MG No Cyclobenza elmer HCl 10 MG Gabapentin 600 MG Gabapentin 600 MG No 1{capsu le} TID Gabapentin 600 MG Ventolin HFA 108 (90 Base) MCG/ACT Ventolin HFA 108 (90 Base) MCG/ACT No 1{puff_ as_need ed} 6xD Ventolin HFA 108 (90 Base) MCG/ACT Atorvastati n Calcium 40 MG Atorvastati n Calcium 40 MG No 1{table t} QD Atorvastat in Calcium 40 MG Ventolin HFA 108 (90 Base) MCG/ACT Ventolin HFA 108 (90 Base) MCG/ACT No 1{puff_ as_need ed} 6xD Ventolin HFA 108 (90 Base) MCG/ACT [facility] 160-9-4.8 MCG/ACT [facility] 160-9-4.8 MCG/ACT No 2{puffs } BID [facility] 160-9-4.8 MCG/ACT Jardiance 25 MG Jardiance 25 MG No 1{table t} QD Jardiance 25 MG hydroCHLORO thiazide 12.5 MG hydroCHLORO thiazide 12.5 MG No hydroCHLOR Othiazide 12.5 MG Atorvastati n Calcium 40 MG Atorvastati n Calcium 40 MG No BID Atorvastat in Calcium 40 MG amLODIPine Besylate 2.5 MG amLODIPine Besylate 2.5 MG No 1{table t} QD amLODIPine Besylate 2.5 MG Omeprazole 40 MG Omeprazole 40 MG No QD Omeprazole 40 MG metFORMIN HCl 500 MG metFORMIN HCl 500 MG No 1{table t_with_ meals} BID metFORMIN HCl 500 MG Norvasc 2.5 Norvasc 2.5 No No rvasc 2.5 Zocor 40 MG Zocor 40 MG No Zo cor 40 MG predniSONE 10 MG predniSONE 10 MG No 1{table t} QD predniSONE 10 MG Montelukast Sodium 10 MG Montelukast Sodium 10 MG No QD Montelukas t Sodium 10 MG Cyclobenzap rine HCl 10 MG Cyclobenzap rine HCl 10 MG No Cyclobenza elmer HCl 10 MG Gabapentin 600 MG Gabapentin 600 MG No 1{capsu le} TID Gabapentin 600 MG Singulair 10 MG Singulair 10 MG No Singulair 10 MG Ventolin HFA 108 (90 Base) MCG/ACT Ventolin HFA 108 (90 Base) MCG/ACT No 1{puff_ as_need ed} 6xD Ventolin HFA 108 (90 Base) MCG/ACT [facility] 160-9-4.8 MCG/ACT [facility] 160-9-4.8 MCG/ACT No 2{puffs } BID [facility] 160-9-4.8 MCG/ACT Jardiance 25 MG Jardiance 25 MG No 1{table t} QD Jardiance 25 MG hydroCHLORO thiazide 12.5 MG hydroCHLORO thiazide 12.5 MG No hydroCHLOR Othiazide 12.5 MG Tamsulosin HCl 0.4 MG Tamsulosin HCl 0.4 MG No 1{capsu le} QD Tamsulosin HCl 0.4 MG Atorvastati n Calcium 40 MG Atorvastati n Calcium 40 MG No BID Atorvastat in Calcium 40 MG amLODIPine Besylate 2.5 MG amLODIPine Besylate 2.5 MG No 1{table t} QD amLODIPine Besylate 2.5 MG Omeprazole 40 MG Omeprazole 40 MG No QD Omeprazole 40 MG metFORMIN HCl 500 MG metFORMIN HCl 500 MG No 1{table t_with_ meals} BID metFORMIN HCl 500 MG Zocor 40 MG Zocor 40 MG No Zo cor 40 MG predniSONE 10 MG predniSONE 10 MG No 1{table t} QD predniSONE 10 MG Montelukast Sodium 10 MG Montelukast Sodium 10 MG No QD Montelukas t Sodium 10 MG Norvasc 2.5 Norvasc 2.5 No No rvasc 2.5 Cyclobenzap rine HCl 10 MG Cyclobenzap rine HCl 10 MG No Cyclobenza elmer HCl 10 MG Zocor 40 MG Zocor 40 MG No Zo cor 40 MG Gabapentin 600 MG Gabapentin 600 MG No 1{capsu le} TID Gabapentin 600 MG Omeprazole 40 MG Omeprazole 40 MG No 1{capsu le} QD Omeprazole 40 MG Ventolin HFA 108 (90 Base) MCG/ACT Ventolin HFA 108 (90 Base) MCG/ACT No 1{puff_ as_need ed} 6xD Ventolin HFA 108 (90 Base) MCG/ACT Hydrochloro thiazide 12.5 MG Hydrochloro thiazide 12.5 MG No Hydrochlor othiazide 12.5 MG [facility]osphere 160-9-4.8 MCG/ACT [facility] 160-9-4.8 MCG/ACT No 2{puffs } BID [facility] 160-9-4.8 MCG/ACT Jardiance 25 MG Jardiance 25 MG No 1{table t} QD Jardiance 25 MG hydroCHLORO thiazide 12.5 MG hydroCHLORO thiazide 12.5 MG No hydroCHLOR Othiazide 12.5 MG Atorvastati n Calcium 40 MG Atorvastati n Calcium 40 MG No BID Atorvastat in Calcium 40 MG amLODIPine Besylate 2.5 MG amLODIPine Besylate 2.5 MG No 1{table t} QD amLODIPine Besylate 2.5 MG Omeprazole 40 MG Omeprazole 40 MG No QD Omeprazole 40 MG metFORMIN HCl 500 MG metFORMIN HCl 500 MG No 1{table t_with_ meals} BID metFORMIN HCl 500 MG Zocor 40 MG Zocor 40 MG No Zo cor 40 MG predniSONE 10 MG predniSONE 10 MG No 1{table t} QD predniSONE 10 MG Montelukast Sodium 10 MG Montelukast Sodium 10 MG No Montelukas t Sodium 10 MG Montelukast Sodium 10 MG Montelukast Sodium 10 MG No QD Montelukas t Sodium 10 MG Cyclobenzap rine HCl 10 MG Cyclobenzap rine HCl 10 MG No Cyclobenza elmer HCl 10 MG Gabapentin 600 MG Gabapentin 600 MG No 1{capsu le} TID Gabapentin 600 MG Cyclobenzap rine HCl 10 MG Cyclobenzap rine HCl 10 MG No Cyclobenza elmer HCl 10 MG Metformin HCl 1000 MG Metformin HCl 1000 MG No 1{table t_with_ a_meal} BID Metformin HCl 1000 MG Ventolin HFA 108 (90 Base) MCG/ACT Ventolin HFA 108 (90 Base) MCG/ACT No 1{puff_ as_need ed} 6xD Ventolin HFA 108 (90 Base) MCG/ACT [facility] 160-9-4.8 MCG/ACT [facility] 160-9-4.8 MCG/ACT No 2{puffs } BID [facility] 160-9-4.8 MCG/ACT Jardiance 25 MG Jardiance 25 MG No 1{table t} QD Jardiance 25 MG hydroCHLORO thiazide 12.5 MG hydroCHLORO thiazide 12.5 MG No hydroCHLOR Othiazide 12.5 MG Atorvastati n Calcium 40 MG Atorvastati n Calcium 40 MG No BID Atorvastat in Calcium 40 MG amLODIPine Besylate 2.5 MG amLODIPine Besylate 2.5 MG No 1{table t} QD amLODIPine Besylate 2.5 MG Omeprazole 40 MG Omeprazole 40 MG No QD Omeprazole 40 MG metFORMIN HCl 500 MG metFORMIN HCl 500 MG No 1{table t_with_ meals} BID metFORMIN HCl 500 MG Zocor 40 MG Zocor 40 MG No Zo cor 40 MG predniSONE 10 MG predniSONE 10 MG No 1{table t} QD predniSONE 10 MG Montelukast Sodium 10 MG Montelukast Sodium 10 MG No QD Montelukas t Sodium 10 MG Norvasc 2.5 MG Norvasc 2.5 MG No Norvasc 2.5 MG Cyclobenzap rine HCl 10 MG Cyclobenzap rine HCl 10 MG No Cyclobenza elmer HCl 10 MG Gabapentin 600 MG Gabapentin 600 MG No 1{capsu le} TID Gabapentin 600 MG Ventolin HFA 108 (90 Base) MCG/ACT Ventolin HFA 108 (90 Base) MCG/ACT No 1{puff_ as_need ed} 6xD Ventolin HFA 108 (90 Base) MCG/ACT [facility] 160-9-4.8 MCG/ACT [facility] 160-9-4.8 MCG/ACT No 2{puffs } BID [facility] 160-9-4.8 MCG/ACT Montelukast Sodium 10 MG Montelukast Sodium 10 MG No QD Montelukas t Sodium 10 MG Atorvastati n Calcium 40 MG Atorvastati n Calcium 40 MG No QD Atorvastat in Calcium 40 MG amLODIPine Besylate 2.5 MG amLODIPine Besylate 2.5 MG No 1{table t} QD amLODIPine Besylate 2.5 MG hydroCHLORO thiazide 12.5 MG hydroCHLORO thiazide 12.5 MG No hydroCHLOR Othiazide 12.5 MG Omeprazole 40 MG Omeprazole 40 MG No QD Omeprazole 40 MG metFORMIN HCl 500 MG metFORMIN HCl 500 MG No 1{table t_with_ meals} BID metFORMIN HCl 500 MG Jardiance 25 MG Jardiance 25 MG No 1{table t} QD Jardiance 25 MG predniSONE 10 MG predniSONE 10 MG No 1{table t} QD predniSONE 10 MG Cyclobenzap rine HCl 10 MG Cyclobenzap rine HCl 10 MG No Cyclobenza elmer HCl 10 MG Zocor 40 MG Zocor 40 MG No Zo cor 40 MG Gabapentin 600 MG Gabapentin 600 MG No 1{capsu le} TID Gabapentin 600 MG Ventolin HFA 108 (90 Base) MCG/ACT Ventolin HFA 108 (90 Base) MCG/ACT No 1{puff_ as_need ed} 6xD Ventolin HFA 108 (90 Base) MCG/ACT [facility] 160-9-4.8 MCG/ACT [facility] 160-9-4.8 MCG/ACT No 2{puffs } BID [facility] 160-9-4.8 MCG/ACT Montelukast Sodium 10 MG Montelukast Sodium 10 MG No QD Montelukas t Sodium 10 MG Atorvastati n Calcium 40 MG Atorvastati n Calcium 40 MG No QD Atorvastat in Calcium 40 MG amLODIPine Besylate 2.5 MG amLODIPine Besylate 2.5 MG No 1{table t} QD amLODIPine Besylate 2.5 MG hydroCHLORO thiazide 12.5 MG hydroCHLORO thiazide 12.5 MG No hydroCHLOR Othiazide 12.5 MG Omeprazole 40 MG Omeprazole 40 MG No QD Omeprazole 40 MG metFORMIN HCl 500 MG metFORMIN HCl 500 MG No 1{table t_with_ meals} BID metFORMIN HCl 500 MG Jardiance 25 MG Jardiance 25 MG No 1{table t} QD Jardiance 25 MG predniSONE 10 MG predniSONE 10 MG No 1{table t} QD predniSONE 10 MG Cyclobenzap rine HCl 10 MG Cyclobenzap rine HCl 10 MG No Cyclobenza elmer HCl 10 MG Zocor 40 MG Zocor 40 MG No Zo cor 40 MG Gabapentin 600 MG Gabapentin 600 MG No 1{capsu le} TID Gabapentin 600 MG Ventolin HFA 108 (90 Base) MCG/ACT Ventolin HFA 108 (90 Base) MCG/ACT No 1{puff_ as_need ed} 6xD Ventolin HFA 108 (90 Base) MCG/ACT [facility] 160-9-4.8 MCG/ACT [facility] 160-9-4.8 MCG/ACT No 2{puffs } BID [facility] 160-9-4.8 MCG/ACT Montelukast Sodium 10 MG Montelukast Sodium 10 MG No QD Montelukas t Sodium 10 MG Atorvastati n Calcium 40 MG Atorvastati n Calcium 40 MG No QD Atorvastat in Calcium 40 MG amLODIPine Besylate 2.5 MG amLODIPine Besylate 2.5 MG No 1{table t} QD amLODIPine Besylate 2.5 MG hydroCHLORO thiazide 12.5 MG hydroCHLORO thiazide 12.5 MG No hydroCHLOR Othiazide 12.5 MG Omeprazole 40 MG Omeprazole 40 MG No QD Omeprazole 40 MG metFORMIN HCl 500 MG metFORMIN HCl 500 MG No 1{table t_with_ meals} BID metFORMIN HCl 500 MG Jardiance 25 MG Jardiance 25 MG No 1{table t} QD Jardiance 25 MG predniSONE 10 MG predniSONE 10 MG No 1{table t} QD predniSONE 10 MG Cyclobenzap rine HCl 10 MG Cyclobenzap rine HCl 10 MG No Cyclobenza elmer HCl 10 MG Zocor 40 MG Zocor 40 MG No Zo cor 40 MG Gabapentin 600 MG Gabapentin 600 MG No 1{capsu le} TID Gabapentin 600 MG Ventolin HFA 108 (90 Base) MCG/ACT Ventolin HFA 108 (90 Base) MCG/ACT No 1{puff_ as_need ed} 6xD Ventolin HFA 108 (90 Base) MCG/ACT [facility] 160-9-4.8 MCG/ACT [facility] 160-9-4.8 MCG/ACT No 2{puffs } BID [facility] 160-9-4.8 MCG/ACT Montelukast Sodium 10 MG Montelukast Sodium 10 MG No QD Montelukas t Sodium 10 MG Atorvastati n Calcium 40 MG Atorvastati n Calcium 40 MG No QD Atorvastat in Calcium 40 MG amLODIPine Besylate 2.5 MG amLODIPine Besylate 2.5 MG No 1{table t} QD amLODIPine Besylate 2.5 MG hydroCHLORO thiazide 12.5 MG hydroCHLORO thiazide 12.5 MG No hydroCHLOR Othiazide 12.5 MG Omeprazole 40 MG Omeprazole 40 MG No QD Omeprazole 40 MG metFORMIN HCl 500 MG metFORMIN HCl 500 MG No 1{table t_with_ meals} BID metFORMIN HCl 500 MG Jardiance 25 MG Jardiance 25 MG No 1{table t} QD Jardiance 25 MG predniSONE 10 MG predniSONE 10 MG No 1{table t} QD predniSONE 10 MG Cyclobenzap rine HCl 10 MG Cyclobenzap rine HCl 10 MG No Cyclobenza elmer HCl 10 MG Zocor 40 MG Zocor 40 MG No Zo cor 40 MG Gabapentin 600 MG Gabapentin 600 MG No 1{capsu le} TID Gabapentin 600 MG Ventolin HFA 108 (90 Base) MCG/ACT Ventolin HFA 108 (90 Base) MCG/ACT No 1{puff_ as_need ed} 6xD Ventolin HFA 108 (90 Base) MCG/ACT [facility] 160-9-4.8 MCG/ACT [facility] 160-9-4.8 MCG/ACT No 2{puffs } BID [facility] 160-9-4.8 MCG/ACT Montelukast Sodium 10 MG Montelukast Sodium 10 MG No QD Montelukas t Sodium 10 MG Atorvastati n Calcium 40 MG Atorvastati n Calcium 40 MG No QD Atorvastat in Calcium 40 MG amLODIPine Besylate 2.5 MG amLODIPine Besylate 2.5 MG No 1{table t} QD amLODIPine Besylate 2.5 MG hydroCHLORO thiazide 12.5 MG hydroCHLORO thiazide 12.5 MG No hydroCHLOR Othiazide 12.5 MG Omeprazole 40 MG Omeprazole 40 MG No QD Omeprazole 40 MG metFORMIN HCl 500 MG metFORMIN HCl 500 MG No 1{table t_with_ meals} BID metFORMIN HCl 500 MG Jardiance 25 MG Jardiance 25 MG No 1{table t} QD Jardiance 25 MG predniSONE 10 MG predniSONE 10 MG No 1{table t} QD predniSONE 10 MG Cyclobenzap rine HCl 10 MG Cyclobenzap rine HCl 10 MG No Cyclobenza elmer HCl 10 MG Zocor 40 MG Zocor 40 MG No Zo cor 40 MG Gabapentin 600 MG Gabapentin 600 MG No 1{capsu le} TID Gabapentin 600 MG Ventolin HFA 108 (90 Base) MCG/ACT Ventolin HFA 108 (90 Base) MCG/ACT No 1{puff_ as_need ed} 6xD Ventolin HFA 108 (90 Base) MCG/ACT [facility] 160-9-4.8 MCG/ACT [facility] 160-9-4.8 MCG/ACT No 2{puffs } BID [facility] 160-9-4.8 MCG/ACT Montelukast Sodium 10 MG Montelukast Sodium 10 MG No QD Montelukas t Sodium 10 MG Atorvastati n Calcium 40 MG Atorvastati n Calcium 40 MG No QD Atorvastat in Calcium 40 MG amLODIPine Besylate 2.5 MG amLODIPine Besylate 2.5 MG No 1{table t} QD amLODIPine Besylate 2.5 MG hydroCHLORO thiazide 12.5 MG hydroCHLORO thiazide 12.5 MG No hydroCHLOR Othiazide 12.5 MG Omeprazole 40 MG Omeprazole 40 MG No QD Omeprazole 40 MG metFORMIN HCl 500 MG metFORMIN HCl 500 MG No 1{table t_with_ meals} BID metFORMIN HCl 500 MG Jardiance 25 MG Jardiance 25 MG No 1{table t} QD Jardiance 25 MG predniSONE 10 MG predniSONE 10 MG No 1{table t} QD predniSONE 10 MG Cyclobenzap rine HCl 10 MG Cyclobenzap rine HCl 10 MG No Cyclobenza elmer HCl 10 MG Zocor 40 MG Zocor 40 MG No Zo cor 40 MG Gabapentin 600 MG Gabapentin 600 MG No 1{capsu le} TID Gabapentin 600 MG Ventolin HFA 108 (90 Base) MCG/ACT Ventolin HFA 108 (90 Base) MCG/ACT No 1{puff_ as_need ed} 6xD Ventolin HFA 108 (90 Base) MCG/ACT [facility] 160-9-4.8 MCG/ACT [facility] 160-9-4.8 MCG/ACT No 2{puffs } BID [facility] 160-9-4.8 MCG/ACT Montelukast Sodium 10 MG Montelukast Sodium 10 MG No QD Montelukas t Sodium 10 MG Atorvastati n Calcium 40 MG Atorvastati n Calcium 40 MG No QD Atorvastat in Calcium 40 MG amLODIPine Besylate 2.5 MG amLODIPine Besylate 2.5 MG No 1{table t} QD amLODIPine Besylate 2.5 MG hydroCHLORO thiazide 12.5 MG hydroCHLORO thiazide 12.5 MG No hydroCHLOR Othiazide 12.5 MG Omeprazole 40 MG Omeprazole 40 MG No QD Omeprazole 40 MG metFORMIN HCl 500 MG metFORMIN HCl 500 MG No 1{table t_with_ meals} BID metFORMIN HCl 500 MG Jardiance 25 MG Jardiance 25 MG No 1{table t} QD Jardiance 25 MG predniSONE 10 MG predniSONE 10 MG No 1{table t} QD predniSONE 10 MG Cyclobenzap rine HCl 10 MG Cyclobenzap rine HCl 10 MG No Cyclobenza elmer HCl 10 MG Zocor 40 MG Zocor 40 MG No Zo cor 40 MG Gabapentin 600 MG Gabapentin 600 MG No 1{capsu le} TID Gabapentin 600 MG Ventolin HFA 108 (90 Base) MCG/ACT Ventolin HFA 108 (90 Base) MCG/ACT No 1{puff_ as_need ed} 6xD Ventolin HFA 108 (90 Base) MCG/ACT Tamsulosin HCl Tamsulosin HCl 04-14 00:00 :00 No Na Dubon 1 capsule [facility] [place] Immunizations Ordered Immunization Name Filled Immunization Name Date Status Comments Source Flucelvax - multidose vial Flucelvax - multidose vial 2021-08-10 17:00:00 Completed [facility] Flucelvax - multidose vial Flucelvax - multidose vial 2021-08-10 17:00:00 Completed [facility] Flucelvax - multidose vial Flucelvax - multidose vial 2021-08-10 17:00:00 Completed [facility] Flucelvax - multidose vial Flucelvax - multidose vial 2021-08-10 17:00:00 Completed [facility] Flucelvax - multidose vial Flucelvax - multidose vial 2021-08-10 17:00:00 Completed [facility] Flucelvax - multidose vial Flucelvax - multidose vial 2021-08-10 17:00:00 Completed [facility] Kenalog (Triamcinolone) Kenalog (Triamcinolone) 2021-04-06 17:04:00 Completed [facility] Afluria single dose Afluria single dose 14:49:00 Completed [facility] Afluria single dose Afluria single dose 14:49:00 Completed [facility] Afluria single dose Afluria single dose 14:49:00 Completed [facility] Afluria single dose Afluria single dose 14:49:00 Completed [facility] Afluria single dose Afluria single dose 14:49:00 Completed [facility] Afluria single dose Afluria single dose 14:49:00 Completed [facility] Afluria single dose Afluria single dose 14:49:00 Completed [facility] Afluria single dose Afluria single dose 14:49:00 Completed [facility] Afluria single dose Afluria single dose 14:49:00 Completed [facility] Afluria single dose Afluria single dose 14:49:00 Completed [facility] Afluria single dose Afluria single dose 14:49:00 Completed [facility] Afluria single dose Afluria single dose 14:49:00 Completed [facility] Afluria single dose Afluria single dose 14:49:00 Completed [facility] Afluria single dose Afluria single dose 14:49:00 Completed [facility] Afluria single dose Afluria single dose 14:49:00 Completed [facility] Afluria single dose Afluria single dose 14:49:00 Completed [facility] Afluria single dose Afluria single dose 14:49:00 Completed [facility] Afluria single dose Afluria single dose 00:00:00 Completed [facility] Kenalog (Triamcinolone) Kenalog (Triamcinolone) 2019-02-26 08:06:00 Completed [facility] Kenalog (Triamcinolone) Kenalog (Triamcinolone) 2019-02-26 08:06:00 Completed [facility] Kenalog (Triamcinolone) Kenalog (Triamcinolone) 2019-02-26 08:06:00 Completed [facility] Kenalog (Triamcinolone) Kenalog (Triamcinolone) 2019-02-26 08:06:00 Completed [facility] Kenalog (Triamcinolone) Kenalog (Triamcinolone) 2019-02-26 08:06:00 Completed [facility] Kenalog (Triamcinolone) Kenalog (Triamcinolone) 2019-02-26 08:06:00 Completed [facility] Kenalog (Triamcinolone) Kenalog (Triamcinolone) 2019-02-26 08:06:00 Completed [facility] Kenalog (Triamcinolone) Kenalog (Triamcinolone) 2019-02-26 08:06:00 Completed [facility] Kenalog (Triamcinolone) Kenalog (Triamcinolone) 2019-02-26 08:06:00 Completed [facility] Kenalog (Triamcinolone) Kenalog (Triamcinolone) 2019-02-26 08:06:00 Completed [facility] Afluria (IIV4) - 3 years and older - SDS - 0.5mL Afluria (IIV4) - 3 years and older - SDS - 0.5mL Unknown Completed [facility] Flucelvax (ccIIV4) - MDV - 0.5mL Flucelvax (ccIIV4) - MDV - 0.5mL Unknown Completed [facility] Flucelvax (ccIIV4) - SDS - 0.5mL Flucelvax (ccIIV4) - SDS - 0.5mL Unknown Completed [facility] Afluria single dose Afluria single dose Unknown Completed [facility] Flucelvax - multidose vial Flucelvax - multidose vial Unknown Completed [facility] Flucelvax - single dose syringe Flucelvax - single dose syringe Unknown Completed [facility] Afluria single dose Afluria single dose Unknown Completed [facility] Flucelvax - multidose vial Flucelvax - multidose vial Unknown Completed [facility] Flucelvax - single dose syringe Flucelvax - single dose syringe Unknown Completed [facility] Afluria single dose Afluria single dose Unknown Completed [facility] Flucelvax - multidose vial Flucelvax - multidose vial Unknown Completed [facility] Flucelvax - single dose syringe Flucelvax - single dose syringe Unknown Completed [facility] Afluria single dose Afluria single dose Unknown Completed [facility] Flucelvax - multidose vial Flucelvax - multidose vial Unknown Completed [facility] Flucelvax - single dose syringe Flucelvax - single dose syringe Unknown Completed [facility] Afluria single dose Afluria single dose Unknown Completed [facility] Flucelvax - multidose vial Flucelvax - multidose vial Unknown Completed [facility] Flucelvax - single dose syringe Flucelvax - single dose syringe Unknown Completed [facility] Afluria single dose Afluria single dose Unknown Completed [facility] Flucelvax - multidose vial Flucelvax - multidose vial Unknown Completed [facility] Flucelvax - single dose syringe Flucelvax - single dose syringe Unknown Completed [facility] Afluria single dose Afluria single dose Unknown Completed [facility] Flucelvax - multidose vial Flucelvax - multidose vial Unknown Completed [facility] Flucelvax - single dose syringe Flucelvax - single dose syringe [place] [facility] Afluria single dose Afluria single dose Unknown Completed [facility] Flucelvax - multidose vial Flucelvax - multidose vial Unknown Completed [facility] Flucelvax - single dose syringe Flucelvax - single dose syringe Unknown Completed [facility] Afluria single dose Afluria single dose Unknown Completed [facility] Flucelvax - multidose vial Flucelvax - multidose vial Unknown Completed [facility] Flucelvax - single dose syringe Flucelvax - single dose syringe Unknown Completed [facility] Afluria (IIV4) - 3 years and older - SDS - 0.5mL Afluria (IIV4) - 3 years and older - SDS - 0.5mL Unknown Completed [facility] Flucelvax (ccIIV4) - MDV - 0.5mL Flucelvax (ccIIV4) - MDV - 0.5mL Unknown Completed [facility] Flucelvax (ccIIV4) - SDS - 0.5mL Flucelvax (ccIIV4) - SDS - 0.5mL Unknown Completed [facility] Afluria (IIV4) - 3 years and older - SDS - 0.5mL Afluria (IIV4) - 3 years and older - SDS - 0.5mL Unknown Completed [facility] Flucelvax (ccIIV4) - MDV - 0.5mL Flucelvax (ccIIV4) - MDV - 0.5mL Unknown Completed [facility] Flucelvax (ccIIV4) - SDS - 0.5mL Flucelvax (ccIIV4) - SDS - 0.5mL Unknown Completed [facility] Afluria (IIV4) - 3 years and older - SDS - 0.5mL Afluria (IIV4) - 3 years and older - SDS - 0.5mL Unknown Completed [facility] Flucelvax (ccIIV4) - MDV - 0.5mL Flucelvax (ccIIV4) - MDV - 0.5mL Unknown Completed [facility] Flucelvax (ccIIV4) - SDS - 0.5mL Flucelvax (ccIIV4) - SDS - 0.5mL Unknown Completed [facility] Afluria (IIV4) - 3 years and older - SDS - 0.5mL Afluria (IIV4) - 3 years and older - SDS - 0.5mL Unknown Completed [facility] Flucelvax (ccIIV4) - MDV - 0.5mL Flucelvax (ccIIV4) - MDV - 0.5mL Unknown Completed [facility] Flucelvax (ccIIV4) - SDS - 0.5mL Flucelvax (ccIIV4) - SDS - 0.5mL Unknown Completed [facility] Afluria (IIV4) - 3 years and older - SDS - 0.5mL Afluria (IIV4) - 3 years and older - SDS - 0.5mL Unknown Completed [facility] Flucelvax (ccIIV4) - MDV - 0.5mL Flucelvax (ccIIV4) - MDV - 0.5mL Unknown Completed [facility] Flucelvax (ccIIV4) - SDS - 0.5mL Flucelvax (ccIIV4) - SDS - 0.5mL Unknown Completed [facility] Vital Signs Vital Name Observation Time Observation Value Comments S ource height 2023-05-19 16:00:00 74 [in_i] Commo n [facility] weight 2023-05-19 16:00:00 223.6 [lb_av] Co mmon [facility] temperature 2023-05-19 16:00:00 97.2 [degF] Com [facility] bmi 2023-05-19 16:00:00 28.71 kg/m2 Comm on [facility] oximetry 2023-05-19 16:00:00 97 % Commo n [facility] respiratory rate 2023-05-19 16:00:00 16 /min [facility] blood pressure systolic 2023-05-19 16:00:00 128 mm[Hg] [facility] blood pressure diastolic 2023-05-19 16:00:00 72 mm[Hg] [facility] height 2023-03-28 08:20:00 74 [in_i] Commo n [facility] weight 2023-03-28 08:20:00 229 [lb_av] Comm on [facility] temperature 2023-03-28 08:20:00 97.1 [degF] Com [facility] bmi 2023-03-28 08:20:00 29.4 kg/m2 Commo n [facility] oximetry 2023-03-28 08:20:00 97 % Commo n [facility] respiratory rate 2023-03-28 08:20:00 16 /min [facility] blood pressure systolic 2023-03-28 08:20:00 128 mm[Hg] Common [facility] blood pressure diastolic 2023-03-28 08:20:00 72 mm[Hg] [facility] height 2023-02-17 13:00:00 74 [in_i] Commo n [facility] weight 2023-02-17 13:00:00 232.0 [lb_av] Co mmon [facility] temperature 2023-02-17 13:00:00 97.3 [degF] Com mon [facility] bmi 2023-02-17 13:00:00 29.78 kg/m2 Comm on [facility] oximetry 2023-02-17 13:00:00 95 % Commo n [facility] respiratory rate 2023-02-17 13:00:00 16 /min [facility] blood pressure systolic 2023-02-17 13:00:00 136 mm[Hg] [facility] blood pressure diastolic 2023-02-17 13:00:00 70 mm[Hg] [facility] height 2022-11-18 16:40:00 74 [in_i] Commo n [facility] weight 2022-11-18 16:40:00 226 [lb_av] Comm on [facility] temperature 2022-11-18 16:40:00 98.1 [degF] Com mon [facility] bmi 2022-11-18 16:40:00 29.01 kg/m2 Comm on [facility] oximetry 2022-11-18 16:40:00 97 % Commo n [facility] respiratory rate 2022-11-18 16:40:00 16 /min Common [facility] blood pressure systolic 2022-11-18 16:40:00 136 mm[Hg] [facility] blood pressure diastolic 2022-11-18 16:40:00 80 mm[Hg] [facility] height 2022-10-05 15:40:00 74 [in_i] Commo n [facility] weight 2022-10-05 15:40:00 229 [lb_av] Comm on [facility] temperature 2022-10-05 15:40:00 98.0 [degF] Com mon [facility] bmi 2022-10-05 15:40:00 29.4 kg/m2 Commo n [facility] oximetry 2022-10-05 15:40:00 97 % Commo n [facility] respiratory rate 2022-10-05 15:40:00 17 /min Common [facility] blood pressure systolic 2022-10-05 15:40:00 124 mm[Hg] [facility] blood pressure diastolic 2022-10-05 15:40:00 70 mm[Hg] Common [facility] height 2022-06-03 15:20:00 74 [in_i] Commo n [facility] weight 2022-06-03 15:20:00 232.6 [lb_av] Co mmon [facility] temperature 2022-06-03 15:20:00 97.4 [degF] Com mon [facility] bmi 2022-06-03 15:20:00 29.86 kg/m2 Comm on [facility] oximetry 2022-06-03 15:20:00 95 % Commo n [facility] respiratory rate 2022-06-03 15:20:00 15 /min Common [facility] blood pressure systolic 2022-06-03 15:20:00 118 mm[Hg] [facility] blood pressure diastolic 2022-06-03 15:20:00 72 mm[Hg] [facility] height 2021-10-01 14:40:00 74 [in_i] Commo n [facility] weight 2021-10-01 14:40:00 240.2 [lb_av] Co mmon [facility] temperature 2021-10-01 14:40:00 97.3 [degF] Com mon [facility] bmi 2021-10-01 14:40:00 30.84 kg/m2 Comm on [facility] oximetry 2021-10-01 14:40:00 98 % Commo n [facility] respiratory rate 2021-10-01 14:40:00 16 /min Common [facility] blood pressure systolic 2021-10-01 14:40:00 128 mm[Hg] [facility] blood pressure diastolic 2021-10-01 14:40:00 79 mm[Hg] Common [facility] height 2021-08-10 16:20:00 74 [in_i] Commo n [facility] weight 2021-08-10 16:20:00 242 [lb_av] Comm on [facility] temperature 2021-08-10 16:20:00 97.9 [degF] Com [facility] bmi 2021-08-10 16:20:00 31.07 kg/m2 Comm on [facility] oximetry 2021-08-10 16:20:00 96 % Commo n [facility] respiratory rate 2021-08-10 16:20:00 16 /min Common [facility] blood pressure systolic 2021-08-10 16:20:00 129 mm[Hg] [facility] blood pressure diastolic 2021-08-10 16:20:00 76 mm[Hg] Common [facility] height 2021-04-06 16:00:00 74 [in_i] Commo n [facility] weight 2021-04-06 16:00:00 241.6 [lb_av] Co mmon [facility] temperature 2021-04-06 16:00:00 96.9 [degF] Com [facility] bmi 2021-04-06 16:00:00 31.02 kg/m2 Comm on [facility] oximetry 2021-04-06 16:00:00 94 % Commo n [facility] respiratory rate 2021-04-06 16:00:00 18 /min [facility] blood pressure systolic 2021-04-06 16:00:00 138 mm[Hg] [facility] blood pressure diastolic 2021-04-06 16:00:00 79 mm[Hg] [facility] height 2020-10-30 09:40:00 74 [in_i] Commo n [facility] weight 2020-10-30 09:40:00 248.0 [lb_av] Co mmon [facility] temperature 2020-10-30 09:40:00 97.3 [degF] Com mon [facility] bmi 2020-10-30 09:40:00 31.84 kg/m2 Comm on [facility] oximetry 2020-10-30 09:40:00 96 % Commo n [facility] respiratory rate 2020-10-30 09:40:00 16 /min [facility] blood pressure systolic 2020-10-30 09:40:00 130 mm[Hg] Common [facility] blood pressure diastolic 2020-10-30 09:40:00 76 mm[Hg] [facility] Encounters Start Date/Time End Date/Time Encounter Type Admission Type Attending [facility] Care Department Encounter ID Source 2023-05-18 14:48:00 Out[facility] [id number] [facility] 2023-05-17 09:53:00 Outpatient Brenda [facility] [id number] [facility] 2023-02-15 08:32:00 Outpatient Lavern [facility] [id number] [facility] 2022-11-16 10:29:00 Outpatient PuckettBrenda [facility] [id number] [facility] 2022-10-05 09:20:01 Outpatient PuckettBrenda castano [facility] [id number] [facility] 2022-09-13 15:43:00 Outpatient PuckettBrenda [facility] [id number] [facility] 2022-09-06 11:00:00 Outpatient PuckettBrenda [facility] [id number] [facility] 2022-06-03 16:23:00 Outpatient Brenda Puckett [facility] [id number] [facility] 2022-06-01 13:45:00 Outpatient Dubon, Na [facility] [id number] [facility] 2022-04-29 09:59:01 Outpatient Dubon, Na [facility] [id number] [facility] 2022-03-17 10:24:01 Outpatient Dubon, Na [facility] [id number] [facility] 2021-09-30 10:25:00 Outpatient Dubon, Na [facility] [id number] [facility] 2021-09-01 14:38:56 Outpatient Dubon, Na [facility] [id number] [facility] 2021-09-01 14:30:54 Outpatient Dubon, Na [facility] [id number] [facility] 2021-09-01 12:44:44 Outpatient Dubon, Na [facility] [id number] [facility] 2021-09-01 12:42:04 Outpatient Dubon, Na [facility] [id number] [facility] 2021-09-01 12:25:11 Outpatient Dubon, Na [facility] [id number] [facility] 2021-09-01 12:16:04 Outpatient Dubon, Na [facility] [id number] [facility] 2021-09-01 12:07:06 Outpatient Dubon, Na [facility] [id number] [facility] 2021-09-01 11:54:58 Outpatient Dubon, Na [facility] [id number] [facility] 2021-09-01 11:43:51 Outpatient Ling Na [facility] [id number] [facility] 2021-09-01 11:30:21 Outpatient Sirena Dubon [facility] [id number] [facility] 2023-10-26 00:00:00 2023-10-26 00:00:00 (TEL) [facility] [id number] [facility] 2023-07-05 00:00:00 2023-07-05 00:00:00 (TEL) [facility] [id number] [facility] 2023-07-03 00:00:00 2023-07-03 00:00:00 (TEL) [facility] [id number] [facility] 2023-05-19 00:00:00 2023-05-19 00:00:00 OFFICE VISIT ESTAB PT LEVEL 4 [facility] [id number] [facility] 2023-03-28 00:00:00 2023-03-28 00:00:00 OFFICE VISIT ESTAB PT LEVEL 4 [facility] [id number] [facility] 2023-03-27 00:00:2023-03-27 00:00:00 (TEL) [facility] [id number] [facility] 2023-02-17 00:00:00 2023-02-17 00:00:00 OFFICE VISIT ESTAB PT LEVEL 4 [facility] [id number] [facility] 2023-02-17 00:00:00 2023-02-17 00:00:00 (TEL) [facility] [id number] [facility] 2023-01-25 00:00:00 2023-01-25 00:00:00 (TEL) [facility] [id number] [facility] 2022-11-18 00:00:00 2022-11-18 00:00:00 OFFICE VISIT ESTAB PT LEVEL 4 [facility] [id number] [facility] 2022-11-07 00:00:00 2022-11-07 00:00:00 (TEL) [facility] [id number] [facility] 2022-10-28 00:00:00 2022-10-28 00:00:00 (TEL) [facility] [id number] [facility] 2022-10-05 00:00:00 2022-10-05 00:00:00 OFFICE VISIT ESTAB PT LEVEL 4 [facility] [id number] [facility] 2022-10-04 00:00:00 2022-10-04 00:00:00 (TEL) [facility] [id number] [facility] 2022-09-29 00:00:00 2022-09-29 00:00:00 (TEL) [facility] [id number] [facility] 2022-07-08 00:00:00 2022-07-08 00:00:00 (TEL) [facility] [id number] [facility] 2022-06-08 00:00:00 2022-06-08 00:00:00 (TEL) [facility] [id number] [facility] 2022-06-03 00:00:00 2022-06-03 00:00:00 OFFICE VISIT ESTAB PT LEVEL 4 [facility] [id number] [facility] 2022-05-30 00:00:00 2022-05-30 00:00:00 (TEL) [facility] [id number] [facility] 2021-10-01 00:00:00 2021-10-01 00:00:00 PREV VISIT EST AGE 40-64 [facility] [id number] [facility] 2021-08-10 00:00:00 2021-08-10 00:00:00 OFFICE VISIT ESTAB PT LEVEL 4 [facility] [id number] [facility] 2021-06-17 00:00:00 2021-06-17 00:00:00 (TEL) [facility] [id number] [facility] 2021-04-06 00:00:00 2021-04-06 00:00:00 (TEL) [facility] [id number] [facility] 2021-04-06 00:00:00 2021-04-06 00:00:00 OFFICE VISIT EST PT LEVEL 3 [facility] [id number] [facility] 2021-03-09 00:00:00 2021-03-09 00:00:00 OL DIG E/M SVC 11-20 MIN [facility] [id number] [facility] 2021-02-10 00:00:00 2021-02-10 00:00:00 (TEL) [facility] [id number] [facility] 2021-01-20 00:00:00 2021-01-20 00:00:00 OL DIG E/M SVC 11-20 MIN [facility] [id number] [facility] 2021-01-20 00:00:00 2021-01-20 00:00:00 (TEL) [facility] [id number] [facility] 2021-01-20 00:00:00 2021-01-20 00:00:00 (TEL) [facility] [id number] [facility] 2021-01-18 00:00:00 2021-01-18 00:00:00 (TEL) [facility] [id number] [facility] 2020-10-30 00:00:00 2020-10-30 00:00:00 OFFICE VISIT ESTAB PT LEVEL 4 [facility] [id number] [facility] 2020-10-23 00:00:00 2020-10-23 00:00:00 (TEL) [facility] [id number] [facility] 2020-08-31 00:00:00 2020-08-31 00:00:00 Outpatient [facility] [id number] [facility] 2020-08-28 00:00:00 2020-08-28 00:00:00 Outpatient [facility] [id number] [facility] 2020-07-30 00:00:00 2020-07-30 00:00:00 Outpatient [facility] [id number] [facility] 2020-07-29 00:00:00 2020-07-29 00:00:00 Outpatient [facility] [id number] [facility] 2020-06-26 00:00:00 2020-06-26 00:00:00 Outpatient [facility] [id number] [facility] 2020-05-25 00:00:00 2020-05-25 00:00:00 Outpatient [facility] [id number] [facility] 2020-05-22 00:00:00 2020-05-22 00:00:00 Outpatient [facility] [id number] [facility] 2020-05-22 00:00:00 2020-05-22 00:00:00 Outpatient [facility] [id number] [facility] 2020-05-01 00:00:00 2020-05-01 00:00:00 Outpatient [facility] [id number] [facility] 2020-04-14 16:47:00 2020-04-14 16:47:[address] [facility] [id number] [facility] 2020-04-14 10:40:00 2020-04-14 10:40:[address] [facility] [id number] [facility] 2020-04-14 10:37:00 2020-04-14 10:37:[address] [facility] [id number] [facility] 2020-03-13 15:00:00 2020-03-13 15:00:00 [facility] [facility] [id number] [facility] 2020-03-12 09:11:00 2020-03-12 09:11:00 [facility] [id number] [facility] 2020-03-01 11:25:00 2020-03-01 11:25:[address] [facility] [id number] [facility] 2020-02-14 09:00:00 2020-02-14 09:00:[address] [facility] [id number] [facility] 2019-07-19 13:40:00 2019-07-19 13:40:[address] [facility] [id number] [facility] 2019-02-28 14:20:00 2019-02-28 14:20:00 [facility] [facility] [id number] [facility] 2019-02-26 15:40:00 2019-02-26 15:40:[address] [facility] [id number] [facility] 2018-09-21 09:30:00 2018-09-21 09:30:00 Outpatient [facility] [id number] [facility] 2018-08-31 10:29:00 2018-08-31 10:29:00 Outpatient [facility] [id number] [facility] 2018-08-09 11:30:00 2018-08-09 11:30:00 Outpatient [facility] [id number] [facility] Results Test Description Test Time Test Comments Results Result Co mments Source HEMOGLOBIN [id number] 00:00:00* Test Item Value Reference Range Interpretation Comme nts HEMOGLOBIN A1c (test code = 4548-4) 6.8 % See_Comment H [Automated messa ge] The system which generated this result transmitted reference range: 4.2-5.6 %. The reference range was not used to interpret this result as normal/abnormal. LIPID PANEL WITH REFLEX DIRECT [id number] 00:00:00* Test Item Value Reference Range Interpretation Comme nts CALC LDL CHOL (test code = 48017-1) 76 MG/DL See_Comment [Automated messa ge] The system which generated this result transmitted reference range: <100 MG/DL. The reference range was not used to interpret this result as normal/abnormal. CHOLESTEROL (test code = 2093-3) 170 MG/DL See_Comment [Automated messa ge] The system which generated this result transmitted reference range: <200 MG/DL. The reference range was not used to interpret this result as normal/abnormal. HDL CHOLESTEROL (test code = 2085-9) 76 MG/DL See_Comment [Automated messa ge] The system which generated this result transmitted reference range: >39 MG/DL. The reference range was not used to interpret this result as normal/abnormal. RISK RATIO LDL/HDL (test code = 87677-7) 1.00 RATIO See_Comment [Automated message] The system which generated this result transmitted reference range: <3.55 RATIO. The reference range was not used to interpret this result as normal/abnormal. TRIGLYCERIDES (test code = 2571-8) 95 MG/DL See_Comment [Automated messa ge] The system which generated this result transmitted reference range: <150 MG/DL. The reference range was not used to interpret this result as normal/abnormal. ALBUMIN/CREATININE RATIO, RANDOM [id number] 00:00:00* Test Item Value Reference Range Interpretation Comme nts ALBUMIN, URINE, RANDOM (test code = 44004-9) 0.7 MG/DL NOT ESTAB MG/DL CALC ALBUMIN/CREAT, RND (test code = 70817-1) 4 MG/G See_Comment [Automated messa ge] The system which generated this result transmitted reference range: <30 MG/G. The reference range was not used to interpret this result as normal/abnormal. CREATININE, URINE, CONC. (test code = 2161-8) 192.1 MG/DL NOT ESTAB MG/DL COMPREHENSIVE METABOLIC [id number] 00:00:00* Test Item Value Reference Range Interpretation Comme nts ALBUMIN (test code = 1751-7) 4.2 G/DL See_Comment [Automated messa ge] The system which generated this result transmitted reference range: 3.5-5.2 G/DL. The reference range was not used to interpret this result as normal/abnormal. ALKALINE PHOSPHATASE (test code = 6768-6) 78 U/L See_Comment [Automated message] The system which generated this result transmitted reference range: 40-123 U/L. The reference range was not used to interpret this result as normal/abnormal. BILIRUBIN, TOTAL (test code = 1975-2) 0.4 MG/DL See_Comment [Automated message] The system which generated this result transmitted reference range: <=1.2 MG/DL. The reference range was not used to interpret this result as normal/abnormal. BUN (test code = 3094-0) 8 MG/DL See_Comment [Automated messa ge] The system which generated this result transmitted reference range: 6-20 MG/DL. The reference range was not used to interpret this result as normal/abnormal. CALCIUM (test code = 60877-2) 9.3 MG/DL See_Comment [Automated messa ge] The system which generated this result transmitted reference range: 8.5-10.5 MG/DL. The reference range was not used to interpret this result as normal/abnormal. CALC A/G RATIO (test code = 1759-0) 2.1 RATIO See_Comment [Automated messa ge] The system which generated this result transmitted reference range: 1.0-2.6 RATIO. The reference range was not used to interpret this result as normal/abnormal. CALC BUN/CREAT (test code = 3097-3) 15 RATIO See_Comment [Automated messa ge] The system which generated this result transmitted reference range: 6-28 RATIO. The reference range was not used to interpret this result as normal/abnormal. CALC GLOBULIN (test code = 09914-0) 2.0 G/DL See_Comment [Automated messa ge] The system which generated this result transmitted reference range: 1.9-3.7 G/DL. The reference range was not used to interpret this result as normal/abnormal. CARBON DIOXIDE (test code = 1963-8) 28 MEQ/L See_Comment [Automated messa ge] The system which generated this result transmitted reference range: 19-31 MEQ/L. The reference range was not used to interpret this result as normal/abnormal. CHLORIDE (test code = 2075-0) 106 MEQ/L See_Comment [Automated messa ge] The system which generated this result transmitted reference range: 95-107 MEQ/L. The reference range was not used to interpret this result as normal/abnormal. CREATININE (test code = 2160-0) 0.52 MG/DL See_Comment L [Automated messa ge] The system which generated this result transmitted reference range: 0.80-1.40 MG/DL. The reference range was not used to interpret this result as normal/abnormal. eGFR (2020 CKD-EPI) (test code = 56570-8) 116 ML/MIN/1.73 See_Comment [Automated message] The system which generated this result transmitted reference range: >60 ML/MIN/1.73. The reference range was not used to interpret this result as normal/abnormal. GLUCOSE (test code = 1558-6) 149 MG/DL See_Comment H [Automated messa ge] The system which generated this result transmitted reference range: 70-99 MG/DL. The reference range was not used to interpret this result as normal/abnormal. POTASSIUM (test code = 2823-3) 4.9 MEQ/L See_Comment [Automated messa ge] The system which generated this result transmitted reference range: 3.5-5.4 MEQ/L. The reference range was not used to interpret this result as normal/abnormal. PROTEIN, TOTAL (test code = 2885-2) 6.2 G/DL See_Comment [Automated messa ge] The system which generated this result transmitted reference range: 6.1-8.3 G/DL. The reference range was not used to interpret this result as normal/abnormal. AST (test code = 1920-8) 26 U/L See_Comment [Automated messa ge] The system which generated this result transmitted reference range: 9-50 U/L. The reference range was not used to interpret this result as normal/abnormal. ALT (test code = 1742-6) 36 U/L See_Comment [Automated messa ge] The system which generated this result transmitted reference range: 5-50 U/L. The reference range was not used to interpret this result as normal/abnormal. SODIUM (test code = 2951-2) 145 MEQ/L See_Comment [Automated messa ge] The system which generated this result transmitted reference range: 133-146 MEQ/L. The reference range was not used to interpret this result as normal/abnormal. CBC W/AUTO [id number] 00:00:00* Test Item Value Reference Range Interpretation Comme nts NUCLEATED RBCS (test code = 98895-3) 0.0 /100 WBC'S See_Comment [Automated messa ge] The system which generated this result transmitted reference range: 0.0 /100 WBC'S. The reference range was not used to interpret this result as normal/abnormal. ABSOLUTE EOSINOPHILS (test code = 64799-4) 0.22 K/UL See_Comment [Automated messa ge] The system which generated this result transmitted reference range: 0.00-0.50 K/UL. The reference range was not used to interpret this result as normal/abnormal. ABSOLUTE LYMPHOCYTES (test code = 65240-4) 1.56 K/UL See_Comment [Automated messa ge] The system which generated this result transmitted reference range: 1.00-4.00 K/UL. The reference range was not used to interpret this result as normal/abnormal. ABSOLUTE MONOCYTES (test code = 34570-3) 0.43 K/UL See_Comment [Automated messa ge] The system which generated this result transmitted reference range: 0.20-1.00 K/UL. The reference range was not used to interpret this result as normal/abnormal. ABSOLUTE NEUTROPHILS (test code = 44634-0) 2.99 K/UL See_Comment [Automated messa ge] The system which generated this result transmitted reference range: 1.50-7.50 K/UL. The reference range was not used to interpret this result as normal/abnormal. BASOPHILS (test code = 77000-1) 0.6 % EOSINOPHILS (test code = 20916-0) 4.2 % HEMATOCRIT (test code = 94317-0) 40.1 % See_Comment [Automated messa ge] The system which generated this result transmitted reference range: 40.0-51.0 %. The reference range was not used to interpret this result as normal/abnormal. HEMOGLOBIN (test code = 718-7) 13.8 G/DL See_Comment [Automated messa ge] The system which generated this result transmitted reference range: 13.5-17.0 G/DL. The reference range was not used to interpret this result as normal/abnormal. LYMPHOCYTES (test code = 94227-3) 29.7 % MCH (test code = 91935-0) 32.7 PG See_Comment [Automated messa ge] The system which generated this result transmitted reference range: 25.0-33.0 PG. The reference range was not used to interpret this result as normal/abnormal. MCHC (test code = 73414-8) 34.4 G/DL See_Comment [Automated messa ge] The system which generated this result transmitted reference range: 31.0-36.0 G/DL. The reference range was not used to interpret this result as normal/abnormal. MCV (test code = 72341-2) 95.0 fL See_Comment [Automated messa ge] The system which generated this result transmitted reference range: 80.0-99.0 fL. The reference range was not used to interpret this result as normal/abnormal. MONOCYTES (test code = 82139-0) 8.2 % NEUTROPHILS (test code = 47621-5) 56.9 % PLATELET COUNT (test code = 41152-0) 143 K/UL See_Comment [Automated messa ge] The system which generated this result transmitted reference range: 130-400 K/UL. The reference range was not used to interpret this result as normal/abnormal. RBC (test code = 53792-5) 4.22 M/UL See_Comment L [Automated messa ge] The system which generated this result transmitted reference range: 4.50-6.10 M/UL. The reference range was not used to interpret this result as normal/abnormal. RDW (test code = 39579-4) 12.1 % See_Comment [Automated messa ge] The system which generated this result transmitted reference range: 11.5-15.0 %. The reference range was not used to interpret this result as normal/abnormal. WBC (test code = 66488-3) 5.3 K/UL See_Comment [Automated messa ge] The system which generated this result transmitted reference range: 3.5-11.0 K/UL. The reference range was not used to interpret this result as normal/abnormal. HEMOGLOBIN [id number] 00:00:00* Test Item Value Reference Range Interpretation Comme [facility] HEMOGLOBIN A1c (test code = 4548-4) 6.7 % See_Comment H [Automated messa ge] The system which generated this result transmitted reference range: 4.2-5.6 %. The reference range was not used to interpret this result as normal/abnormal. LIPID PANEL WITH REFLEX DIRECT [id number] 00:00:00* Test Item Value Reference Range Interpretation Comme [facility] CALC LDL CHOL (test code = 34147-6) 84 MG/DL See_Comment [Automated messa ge] The system which generated this result transmitted reference range: <100 MG/DL. The reference range was not used to interpret this result as normal/abnormal. CHOLESTEROL (test code = 2093-3) 178 MG/DL See_Comment [Automated messa ge] The system which generated this result transmitted reference range: <200 MG/DL. The reference range was not used to interpret this result as normal/abnormal. HDL CHOLESTEROL (test code = 2085-9) 71 MG/DL See_Comment [Automated messa ge] The system which generated this result transmitted reference range: >39 MG/DL. The reference range was not used to interpret this result as normal/abnormal. RISK RATIO LDL/HDL (test code = 19614-9) 1.18 RATIO See_Comment [Automated message] The system which generated this result transmitted reference range: <3.55 RATIO. The reference range was not used to interpret this result as normal/abnormal. TRIGLYCERIDES (test code = 2571-8) 129 MG/DL See_Comment [Automated messa ge] The system which generated this result transmitted reference range: <150 MG/DL. The reference range was not used to interpret this result as normal/abnormal. COMPREHENSIVE METABOLIC [id number] 00:00:00* Test Item Value Reference Range Interpretation Comme nts ALBUMIN (test code = 1751-7) 4.2 G/DL See_Comment [Automated messa ge] The system which generated this result transmitted reference range: 3.5-5.2 G/DL. The reference range was not used to interpret this result as normal/abnormal. ALKALINE PHOSPHATASE (test code = 6768-6) 79 U/L See_Comment [Automated message] The system which generated this result transmitted reference range: 40-123 U/L. The reference range was not used to interpret this result as normal/abnormal. BILIRUBIN, TOTAL (test code = 1975-2) 0.5 MG/DL See_Comment [Automated message] The system which generated this result transmitted reference range: <=1.2 MG/DL. The reference range was not used to interpret this result as normal/abnormal. BUN (test code = 3094-0) 15 MG/DL See_Comment [Automated messa ge] The system which generated this result transmitted reference range: 6-20 MG/DL. The reference range was not used to interpret this result as normal/abnormal. CALCIUM (test code = 73031-9) 9.1 MG/DL See_Comment [Automated messa ge] The system which generated this result transmitted reference range: 8.5-10.5 MG/DL. The reference range was not used to interpret this result as normal/abnormal. CALC A/G RATIO (test code = 1759-0) 2.0 RATIO See_Comment [Automated messa ge] The system which generated this result transmitted reference range: 1.0-2.6 RATIO. The reference range was not used to interpret this result as normal/abnormal. CALC BUN/CREAT (test code = 3097-3) 20 RATIO See_Comment [Automated messa ge] The system which generated this result transmitted reference range: 6-28 RATIO. The reference range was not used to interpret this result as normal/abnormal. CALC GLOBULIN (test code = 95479-9) 2.1 G/DL See_Comment [Automated messa ge] The system which generated this result transmitted reference range: 1.9-3.7 G/DL. The reference range was not used to interpret this result as normal/abnormal. CARBON DIOXIDE (test code = 1962-8) 28 MEQ/L See_Comment [Automated messa ge] The system which generated this result transmitted reference range: 19-31 MEQ/L. The reference range was not used to interpret this result as normal/abnormal. CHLORIDE (test code = 2075-0) 103 MEQ/L See_Comment [Automated messa ge] The system which generated this result transmitted reference range: 95-107 MEQ/L. The reference range was not used to interpret this result as normal/abnormal. CREATININE (test code = 2160-0) 0.75 MG/DL See_Comment L [Automated messa ge] The system which generated this result transmitted reference range: 0.80-1.40 MG/DL. The reference range was not used to interpret this result as normal/abnormal. eGFR (2020 CKD-EPI) (test code = 69981-8) 104 ML/MIN/1.73 See_Comment [Automated message] The system which generated this result transmitted reference range: >60 ML/MIN/1.73. The reference range was not used to interpret this result as normal/abnormal. GLUCOSE (test code = 1558-6) 114 MG/DL See_Comment H [Automated messa ge] The system which generated this result transmitted reference range: 70-99 MG/DL. The reference range was not used to interpret this result as normal/abnormal. POTASSIUM (test code = 2823-3) 4.8 MEQ/L See_Comment [Automated messa ge] The system which generated this result transmitted reference range: 3.5-5.4 MEQ/L. The reference range was not used to interpret this result as normal/abnormal. PROTEIN, TOTAL (test code = 2885-2) 6.3 G/DL See_Comment [Automated messa ge] The system which generated this result transmitted reference range: 6.1-8.3 G/DL. The reference range was not used to interpret this result as normal/abnormal. AST (test code = 1920-8) 24 U/L See_Comment [Automated messa ge] The system which generated this result transmitted reference range: 9-50 U/L. The reference range was not used to interpret this result as normal/abnormal. ALT (test code = 1742-6) 32 U/L See_Comment [Automated messa ge] The system which generated this result transmitted reference range: 5-50 U/L. The reference range was not used to interpret this result as normal/abnormal. SODIUM (test code = 2951-2) 141 MEQ/L See_Comment [Automated messa ge] The system which generated this result transmitted reference range: 133-146 MEQ/L. The reference range was not used to interpret this result as normal/abnormal. Lipid Panel w/ Chol/HDL [id number] 00:00:00* Test Item Value Reference Range Interpretation Comme nts Cholesterol, Total (test code = 2093-3) 182 mg/dL See_Comment [Automated message] The system which generated this result transmitted reference range: 100-199 mg/dL. The reference range was not used to interpret this result as normal/abnormal. Triglycerides (test code = 2571-8) 248 mg/dL See_Comment H [Automated messa ge] The system which generated this result transmitted reference range: 0-149 mg/dL. The reference range was not used to interpret this result as normal/abnormal. HDL Cholesterol (test code = 2085-9) 69 mg/dL See_Comment [Automated messa ge] The system which generated this result transmitted reference range: >39 mg/dL. The reference range was not used to interpret this result as normal/abnormal. T. Chol/HDL Ratio (test code = 9830-1) 2.6 ratio See_Comment [Automated [employer]] The system which generated this result transmitted reference range: 0.0-5.0 ratio. The reference range was not used to interpret this result as normal/abnormal. Microalbumin/Creat Ratio, Random [id number] 00:00:00* Test Item Value Reference Range Interpretation Comme nts Creatinine, Urine (test code = 2161-8) 53.7 mg/dL Not Estab. mg/dL Albumin, Urine (test code = 93644-0) <3.0 ug/mL Not Estab. ug/mL Alb/Creat Ratio (test code = 14585-6) <6 mg/g creat See_Comment [Automated messa ge] The system which generated this result transmitted reference range: 0-29 mg/g creat. The reference range was not used to interpret this result as normal/abnormal. Comp. Metabolic Panel (14) ([facility])2022-06-06 00:00:00* Test Item Value Reference Range Interpretation Comme nts Glucose (test code = 2345-7) 156 mg/dL See_Comment H [Automated messa ge] The system which generated this result transmitted reference range: 70-99 mg/dL. The reference range was not used to interpret this result as normal/abnormal. BUN (test code = 3094-0) 13 mg/dL See_Comment [Automated messa ge] The system which generated this result transmitted reference range: 6-24 mg/dL. The reference range was not used to interpret this result as normal/abnormal. Creatinine (test code = 2160-0) 0.69 mg/dL See_Comment L [Automated messa ge] The system which generated this result transmitted reference range: 0.76-1.27 mg/dL. The reference range was not used to interpret this result as normal/abnormal. BUN/Creatinine Ratio (test code = 3097-3) 19 9-20 Sodium (test code = 2951-2) 135 mmol/L See_Comment [Automated messa ge] The system which generated this result transmitted reference range: 134-144 mmol/L. The reference range was not used to interpret this result as normal/abnormal. Potassium (test code = 2823-3) 4.7 mmol/L See_Comment [Automated messa ge] The system which generated this result transmitted reference range: 3.5-5.2 mmol/L. The reference range was not used to interpret this result as normal/abnormal. Chloride (test code = 2075-0) 95 mmol/L See_Comment L [Automated messa ge] The system which generated this result transmitted reference range: 96-106 mmol/L. The reference range was not used to interpret this result as normal/abnormal. Carbon Dioxide, Total (test code = 2028-9) 27 mmol/L See_Comment [Automated message] The system which generated this result transmitted reference range: 20-29 mmol/L. The reference range was not used to interpret this result as normal/abnormal. Calcium (test code = 24710-1) 9.8 mg/dL See_Comment [Automated messa ge] The system which generated this result transmitted reference range: 8.7-10.2 mg/dL. The reference range was not used to interpret this result as normal/abnormal. Protein, Total (test code = 2885-2) 6.6 g/dL See_Comment [Automated [employer]] The system which generated this result transmitted reference range: 6.0-8.5 g/dL. The reference range was not used to interpret this result as normal/abnormal. Albumin (test code = 1751-7) 4.3 g/dL See_Comment [Automated [employer]] The system which generated this result transmitted reference range: 3.8-4.9 g/dL. The reference range was not used to interpret this result as normal/abnormal. Globulin, Total (test code = 24077-7) 2.3 g/dL See_Comment [Automated [employer]] The system which generated this result transmitted reference range: 1.5-4.5 g/dL. The reference range was not used to interpret this result as normal/abnormal. A/G Ratio (test code = 1759-0) 1.9 1.2-2.2 Bilirubin, Total (test code = 1975-2) 0.4 mg/dL See_Comment [Automated [employer]] The system which generated this result transmitted reference range: 0.0-1.2 mg/dL. The reference range was not used to interpret this result as normal/abnormal. Alkaline Phosphatase (test code = 6768-6) 74 IU/L See_Comment [Automated message] The system which generated this result transmitted reference range: 44-121 IU/L. The reference range was not used to interpret this result as normal/abnormal. AST (SGOT) (test code = 1920-8) 17 IU/L See_Comment [Automated [employer]] The system which generated this result transmitted reference range: 0-40 IU/L. The reference range was not used to interpret this result as normal/abnormal. ALT (SGPT) (test code = 1742-6) 26 IU/L See_Comment [Automated [employer]] The system which generated this result transmitted reference range: 0-44 IU/L. The reference range was not used to interpret this result as normal/abnormal. CBC With Differential/[id number] 00:00:00* Test Item Value Reference Range Interpretation Comme nts WBC (test code = 6690-2) 6.9 x10E3/uL See_Comment [Automated messa ge] The system which generated this result transmitted reference range: 3.4-10.8 x10E3/uL. The reference range was not used to interpret this result as normal/abnormal. RBC (test code = 789-8) 5.09 x10E6/uL See_Comment [Automated messa ge] The system which generated this result transmitted reference range: 4.14-5.80 x10E6/uL. The reference range was not used to interpret this result as normal/abnormal. Hemoglobin (test code = 718-7) 16.4 g/dL See_Comment [Automated messa ge] The system which generated this result transmitted reference range: 13.0-17.7 g/dL. The reference range was not used to interpret this result as normal/abnormal. Hematocrit (test code = 4544-3) 47.6 % See_Comment [Automated messa ge] The system which generated this result transmitted reference range: 37.5-51.0 %. The reference range was not used to interpret this result as normal/abnormal. MCV (test code = 787-2) 94 fL See_Comment [Automated messa ge] The system which generated this result transmitted reference range: 79-97 fL. The reference range was not used to interpret this result as normal/abnormal. MCH (test code = 785-6) 32.2 pg See_Comment [Automated messa ge] The system which generated this result transmitted reference range: 26.6-33.0 pg. The reference range was not used to interpret this result as normal/abnormal. MCHC (test code = 786-4) 34.5 g/dL See_Comment [Automated messa ge] The system which generated this result transmitted reference range: 31.5-35.7 g/dL. The reference range was not used to interpret this result as normal/abnormal. RDW (test code = 788-0) 11.8 % See_Comment [Automated messa ge] The system which generated this result transmitted reference range: 11.6-15.4 %. The reference range was not used to interpret this result as normal/abnormal. Platelets (test code = 777-3) 213 x10E3/uL See_Comment [Automated messa ge] The system which generated this result transmitted reference range: 150-450 x10E3/uL. The reference range was not used to interpret this result as normal/abnormal. Neutrophils (test code = 770-8) 63 % Not Estab. % Lymphs (test code = 736-9) 25 % Not Estab. % Monocytes (test code = 5905-5) 9 % Not Estab. % Eos (test code = 713-8) 2 % Not Estab. % Basos (test code = 706-2) 1 % Not Estab. % Immature Cells (test code = UNLOINC) Neutrophils (Absolute) (test code = 751-8) 4.5 x10E3/uL See_Comment [Automated messa ge] The system which generated this result transmitted reference range: 1.4-7.0 x10E3/uL. The reference range was not used to interpret this result as normal/abnormal. Lymphs (Absolute) (test code = 731-0) 1.7 x10E3/uL See_Comment [Automated m essage] The system which generated this result transmitted reference range: 0.7-3.1 x10E3/uL. The reference range was not used to interpret this result as normal/abnormal. Monocytes(Absolute) (test code = 742-7) 0.6 x10E3/uL See_Comment [Automated m essage] The system which generated this result transmitted reference range: 0.1-0.9 x10E3/uL. The reference range was not used to interpret this result as normal/abnormal. Eos (Absolute) (test code = 711-2) 0.1 x10E3/uL See_Comment [Automated messa ge] The system which generated this result transmitted reference range: 0.0-0.4 x10E3/uL. The reference range was not used to interpret this result as normal/abnormal. Baso (Absolute) (test code = 704-7) 0.0 x10E3/uL See_Comment [Automated messa ge] The system which generated this result transmitted reference range: 0.0-0.2 x10E3/uL. The reference range was not used to interpret this result as normal/abnormal. Immature Granulocytes (test code = 43179-0) 0 % Not Estab. % Immature Grans (Abs) (test code = 85152-2) 0.0 x10E3/uL See_Comment [Automated message] The system which generated this result transmitted reference range: 0.0-0.1 x10E3/uL. The reference range was not used to interpret this result as normal/abnormal. NRBC (test code = 98361-5) Hematology Comments: (test code = 59782-4)
[2023-11-11] MEDS ORDERED: METHYLPREDNISOLONE 125 MG INJ ONE (06:20)
[2023-11-11] MEDS ORDERED: ALBUTEROL 2.5 MG/3 ML NEB SOL ONE (06:20)
[2023-11-11] MEDS ORDERED: IPRATROPIUM BROM 0.5MG/2.5ML ONE (06:20)
[2023-11-11 06:30] LABS: Absolute Eosinophils 0.1 K/uL (0-0.5); Absolute Monocytes 0.5 K/uL (0.1-1.3); Absolute Neutrophil 3.8 K/uL (1.8-8.0); Basophils % 0.5 % (0-1.3); Eosinophils % 1.2 % (0-4.4); Hematocrit 47.3 % (39.6-49.0); Hemoglobin 16.1 g/dL (13.6-17.9); MCH 33.1 pg (27.0-35.0); MCV 97.3 fL (80-100); Monocytes % 9.3 % (3.3-12.3); Nucleated Red Blood Cells % 0.2 % (0-0); Platelets 154 thou/uL (152-406); RBC Red Blood Cell Count 4.86 M/uL (4.33-5.43)
[2023-11-11 06:48] LABS: Albumin 3.6 g/dL (3.4-5.0); Albumin/Globulin Ratio 0.9 (1.1-1.8); Anion Gap 7.4 mEq/L (5.0-15.0); Bilirubin Direct 0.1 mg/dL (0-0.2); Bilirubin Indirect, Calculated 0.3 mg/dL (0.2-0.8); Bilirubin Total 0.4 mg/dL (0.2-1.0); Globulin 4.1 g/dL (2.3-3.5); Magnesium 2.1 mg/dL (1.6-2.4); Potassium 3.4 mEq/L (3.5-5.1); Protein, Total 7.7 g/dL (6.4-8.2)
--- NOTE | 2023-11-11 06:58 | RAD REPORT ---
EXAM DESCRIPTION: RAD - Chest Single View - 11/11/2023 6:52 am CLINICAL HISTORY: COPD COMPARISON: Chest Single View dated 05/28/2022; Chest Single View dated 07/28/2018; CHEST PA AND LAT 2 VIEW dated 09/10/2014; CHEST SINGLE VIEW dated 10/04/2010; Lung Cancer Screening CT W/O dated 11/29/19 20 FINDINGS: Lines: None. Lungs: No evidence of edema or pneumonia. Emphysema. Pleural: No significant pleural effusions or pneumothorax. Cardiac: The heart size is within normal limits. Mediastinum: Within normal limits. Bones: No acute fractures. ACDF in the cervical spine. Other: None IMPRESSION: No acute cardiopulmonary disease. Emphysema.
--- NOTE | 2023-11-11 07:15 | EDPHYS ---
Physician Documentation [facility] Name: Emory Lynn Age: 58 yrs Sex: Male : 1965 Arrival Date: 11/11/2023 Time: 06:08 Bed 7 Private MD: ED Physician Marcio Samaniego HPI: 11/10 06:14 This 58 yrs old Male presents to ER via Unassigned with complaints of Dyspnea. rt 06:14 Patient presents to the ED with dyspnea. Patient does have COPD. States for the past rt several days, his breathing has gotten worse. Reports productive cough. Denies any chest pain. Denies other acute complaints, symptoms are moderate in severity, no other aggravating or alleviating factors.. Historical: - Allergies: 06:14 No Known Allergies; jb4 - PMHx: 06:14 Hyperlipidemia; Hypertension; jb4 - PSHx: 06:14 neck; jb4 - Immunization history:: Adult Immunizations unknown. - Infectious Disease History:: Denies. - Social history:: Smoking status: Patient reports the use of cigarette tobacco products, cigars. ROS: 06:14 Constitutional: Negative for fever, chills, and weight loss, Cardiovascular: Negative rt for chest pain, palpitations, and edema, Abdomen/GI: Negative for abdominal pain, nausea, vomiting, diarrhea, and constipation, MS/Extremity: Negative for injury and deformity, Skin: Negative for injury, rash, and discoloration, Neuro: Negative for headache, weakness, numbness, tingling, and seizure, Psych: Negative for depression, anxiety, suicide ideation, homicidal ideation, and hallucinations, 06:14 Respiratory: Positive for cough, shortness of breath, Exam: 06:14 Constitutional: This is a well developed, well nourished patient who is awake, alert, rt and in no acute distress. Head/Face: Normocephalic, atraumatic. Chest/axilla: Normal chest wall appearance and motion. Nontender with no deformity. No lesions are appreciated. Cardiovascular: Regular rate and rhythm with a normal S1 and S2. No gallops, murmurs, or rubs. Normal PMI, no JVD. No pulse deficits. Abdomen/GI: Soft, non-tender, with normal bowel sounds. No distension or tympany. No guarding or rebound. No evidence of tenderness throughout. Skin: Warm, dry with normal turgor. Normal color with no rashes, no lesions, and no evidence of cellulitis. MS/ Extremity: Pulses equal, no cyanosis. Neurovascular intact. Full, normal range of motion. Neuro: Awake and alert, GCS 15, oriented to person, place, time, and situation. Cranial nerves II-XII grossly intact. Motor strength 5/5 in all extremities. Sensory grossly intact. Cerebellar exam normal. Normal gait. Psych: Awake, alert, with orientation to person, place and time. Behavior, mood, and affect are within normal limits. 06:14 Respiratory: Wheezes, diminished breath sounds heard on all lung villalta, mild respiratory distress, 06:38 ECG was reviewed by the Attending Physician. rt Vital Signs: 06:12 BP 202 / 96; Pulse 128; Resp 20; Pulse Ox 93% on R/A; Weight 102.51 kg (R); Height 6 jb4 ft. 4 in. ; 06:30 BP 161 / 98; Pulse 102; Resp 25; Temp 98.9(TE); Pulse Ox 100% on Nebulizer Mask; km8 07:16 BP 136 / 72; Pulse 116; Resp 20; Pulse Ox 97% on R/A; iw 07:54 BP 140 / 87; Pulse 110; Resp 20; Pulse Ox 98% on R/A; iw 06:12 Body Mass Index 27.51 (102.51 kg, 193.04 cm) jb4 [place] Coma Score: 06:18 Eye Response: spontaneous(4). Motor Response: obeys commands(6). Verbal Response: km8 oriented(5). Total: 15. MDM: 06:13 Patient medically screened. rt 07:21 Differential Diagnosis sepsis, flu. Data reviewed: vital signs, nurses notes, lab test pamela result(s), EKG, radiologic studies, plain films. Consideration of Admission/Observation Escalation of care including admission/observation considered. I considered the following discharge prescriptions or medication management in the emergency department Medications were administered in the Emergency Department. See MAR. Independent interpretation of the following test(s) in the Emergency Department EKG: See my EKG interpretation above. Test considered but Not performed: CT: no ct chest. Historians other than the Patient: patient well informed. Care significantly affected by the following chronic conditions: Hypertension. 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 11/10 06:14 Order name: Basic Metabolic Panel; Complete Time: 06:49 rt 11/10 06:14 Order name: CBC with Diff; Complete Time: 06:49 rt 11/10 06:14 Order name: LFT's; Complete Time: 06:49 rt 11/10 06:14 Order name: Magnesium; Complete Time: 06:49 rt 11/10 06:14 Order name: NT PRO-BNP; Complete Time: 06:49 rt 11/10 06:14 Order name: Troponin HS; Complete Time: 06:49 rt 11/10 06:14 Order name: XRAY Chest (1 view); Complete Time: 07:12 rt 11/10 06:14 Order name: Cardiac monitoring; Complete Time: 06:18 rt 11/10 06:14 Order name: EKG - Nurse/Tech; Complete Time: 06:18 rt 11/10 06:14 Order name: IV Saline Lock; Complete Time: 06:18 rt 06 06:14 Order name: Labs collected and sent; Complete Time: 06:18 rt 11/10 06:14 Order name: O2 Per Protocol; Complete Time: 06:18 rt 11/10 06:14 Order name: O2 Sat Monitoring; Complete Time: 06:18 rt EC:38 Rate is 123 beats/min. Rhythm is regular, Sinus tachycardia with Right bundle branch rt block. [place] interval is normal. QRS interval is normal. QT interval is normal. No Q waves. Administered Medications: 06:25 Drug: DuoNeb Nebulize (3:1) (2.5 mg - 0.5 mg) 3 ml Nebulizer once Route: Nebulizer; km8 07:15 Follow up: Response: No adverse reaction iw 06:25 Drug: MethylPrednisoLONE IVP 125 mg IVP once Route: IVP; Site: right antecubital; km8 07:50 Follow up: Response: No adverse reaction iw 07:28 Drug: Levalbuterol Inhalation 1.25 mg Inhalation once Route: Inhalation; iw 07:28 Drug: LevOfloxacin PO 750 mg PO once Route: PO; iw 07:50 Follow up: Response: No adverse reaction iw 07:28 Drug: predniSONE PO 60 mg PO once Route: PO; iw 07:55 Follow up: Response: No adverse reaction iw 07:28 Drug: Levalbuterol Inhalation 1.25 mg Inhalation once Route: Inhalation; iw 07:29 Not Given (Physician Discretion): potassiumeffervescent tablet 25 meq PO once; dissolve iw in 4 ounces of water or juice 07:29 Drug: Potassium Chloride PO 20 mEq PO once Route: PO; iw 07:50 Follow up: Response: No adverse reaction iw Disposition Summary: 11/11/23 07:14 Discharge Ordered Notes: Location: Home pamela Problem: new pamela Symptoms: have improved pamela Condition: Stable pamela Diagnosis - COPD/ Chronic obstructive pulmonary disease with (acute) exacerbation pamela - Hypokalemia pamela Followup: pamela - With: Private Physician - When: 2 - 3 days - Reason: Recheck today's complaints, Continuance of care, Re-evaluation by your physician Followup: pamela - With: Helio Suarez MD - When: 2 - 3 days - Reason: Recheck today's complaints, Re-evaluation by your physician Discharge Instructions: - Discharge Summary Sheet pamela - Chronic Obstructive Pulmonary Disease pamela - Potassium Content of Foods pamela - Chronic Obstructive Pulmonary Disease Exacerbation pamela - Hypokalemia pamela Forms: - Medication Reconciliation Form pamela - Thank You Letter pamela - Antibiotic Education pamela - Prescription Opioid Use pamela - Patient Portal Instructions pamela - Leadership Thank You Letter pamela - Work release form iw Prescriptions: - albuterol sulfate 90 mcg/actuation Inhalation HFA Aerosol Inhaler - inhale 2 puff INHALATION route every 4 to 6 hours as needed for shortness of pamela breath or wheezing; 1 unit; Refills: 0, Product Selection Permitted - Albuterol Sulfate 2.5 mg /3 mL (0.083 %) Inhalation Solution for Nebulization - inhale 1 unit NEBULIZATION route every 4-6 hours As needed; 30 unit; Refills: pamela 0, Product Selection Permitted - Prednisone 20 mg Oral Tablet - take 2 tablets ORAL route once daily for 5 days; 10 tablet; Refills: 0, Product pamela Selection Permitted - levofloxacin 500 mg Oral tablet - take 1 tablet ORAL route once daily for 7 days; 7 tablet; Refills: 0, Product pamela Selection Permitted Signatures: Dispatcher [employer] Marcio An MD MD cha Williams, Irene RN RN iw Niranjan Guzman, JORGE RN jb4 Yuniel Cruz MD MD rt Isabel Santos, JORGE RN km8 Corrections: (The following items were deleted from the chart) 06:14 06:14 BASIC METABOLIC PANEL+C.LAB.BRZ ordered. EDMS EDMS 06: 06:14 CBC+H.LAB.BRZ ordered. EDMS EDMS : 06:14 HEPATIC FUNCTION+C.LAB.BRZ ordered. EDMS EDMS : 06:14 MAGNESIUM+C.LAB.BRZ ordered. EDMS EDMS 06: 06:14 PROBNP+C.LAB.BRZ ordered. EDMS EDMS : 06:14 Troponin High Sensitivity+C.LAB.BRZ ordered. EDMS EDMS : 06:14 Chest Single View+RAD.RAD.BRZ ordered. EDMS EDMS
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
[2023-11-11] MEDS ORDERED: POTASSIUM CL SA 10 MEQ TAB PO ONE (07:20)
[2023-11-11] MEDS ORDERED: LEVALBUTEROL 1.25 MG/3 ML NEB ONE ×2 (07:20→07:25)
[2023-11-11] MEDS ORDERED: predniSONE 20 MG TAB ONE (07:20)
[2023-11-11] MEDS ORDERED: levoFLOXacin 750 MG TAB ONE (07:20)
[2023-11-11 13:55] VITALS: BP 136/72; TEMP 98.9; O2SAT 97
--- NOTE | 2023-11-13 12:48 | EKG ---
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
== END 2023-11-11 07:55 | disposition home or self-care (01) ==
LOC: ER 06:08
DX: J44.1 Chronic obstructive pulmonary disease with (acute) exacerbation (principal); E87.6 Hypokalemia; I10 Essential (primary) hypertension; Z72.0 Tobacco use
CPT/HCPCS: 93005; 85025; 80048; 36415; 83735; 80076; 84484; 83880; 71045; 94640; 96374; 99285; J7512; J7614 ×2; J7613; J7644; J2930

== ENCOUNTER 2025-03-26 09:17 | Emergency (ER) | payer OTHER ==
--- OUTSIDE RECORDS SUMMARY | 2025-03-26 09:24 | XMS REPORT | Continuity of Care Document ---
Author Name Unknown Address [address] [facility] [address] [place] [address] [facility] Address [address] [facility] [address] [place] [address] Care Team Providers Care Manager Stars Name Role Phone Erick SHERWOOD, Helio Lord Primary Care Physician Brenda Puckett Attending Clinician Unavailable Sirena Dubon Attending Clinician Unavailable Payers Payer Name Policy Type Policy Number Effective Date Expirati on Date Source [id number] [place] [address] [id number] 2021 00:00:00 [facility] Problems Condition Name Condition Details Condition Category Status Onset Date Resolution Date Last Treatment Date Treating Clinician Comments Source Acute tic disorder Acute tic disorder Problem [facility] [id number] Essential hypertensi on Problem [facility] [id number] Cigarette nicotine dependence without complicati on Problem [facility] [id number] Pure hyperchole sterolemia Problem [facility] [id number] Simple chronic bronchitis Problem [facility] [id number] Encounter for general adult medical examinatio n with abnormal findings Problem [facility] [id number] Controlled type 2 diabetes mellitus without complicati on, without long-term current use of insulin Problem [facility] Gastroesop hageal reflux disease Gastroesop hageal reflux disease, esophagiti s presence not specified Problem [facility] [id number] Difficulty sleeping Problem [facility] [id number] Obesity, morbid, BMI 40.0-49.9 Problem [facility] [id number] Wheezing Problem [facility] History of polyp of colon History of colon polyps Problem [facility] Allergic rhinitis Non-season al allergic rhinitis, unspecifie d trigger Problem [facility] [id number] Chronic obstructiv e pulmonary disease with (acute) lower respirator y infection Problem [facility] [id number] Neuropathy Problem Com [facility] [id number] Constipati on, unspecifie d constipati on type Problem [facility] [id number] Benign prostatic hyperplasi a with lower urinary tract symptoms Problem [facility] [id number] COPD exacerbati on Problem [facility] Social History Social Habit Start Date Stop Date Quantity Comments Source History of Tobacco Use [facility] Sex Assigned At [facility] Smoking Status Start Date Stop Date Source Never Smoker [facility] Current Smoker 2024-03-21 00:00:00 [facility] Former Smoker 2021-10-04 00:00:00 2021-10-04 00:00:00 [facility] Medications Ordered Medication Name Filled Medication Name Start Date Stop Date Current Medication? Ordering Clinician Indication Dosage Frequency Signature (SIG) Comments Components Source roflumilast 500 mcg tablet - 00:00: 00 Yes 1mcg [facility] omeprazole 40 mg capsule,del ayed release - 00:00: 00 Yes 1mg [facility] gabapentin 600 mg tablet - 00:00: 00 Yes mg [facility] atorvastati n 40 mg tablet - 00:00: 00 Yes mg [facility] prednisone 10 mg tablet 12-02 00:00: 00 Yes mg [facility] amlodipine 2.5 mg tablet 12-02 00:00: 00 Yes mg [facility] metformin 1,000 mg tablet 12-02 00:00: 00 Yes mg [facility] montelukast 10 mg tablet 12-02 00:00: 00 Yes mg [facility] Jardiance 25 mg tablet 12-02 00:00: 00 Yes mg [facility] hydrochloro thiazide 12.5 mg tablet 11-28 00:00: 00 Yes mg [facility] Fluconazole 100 MG Fluconazole 100 MG 09-06 00:00: 00 No 1{table t} QD Fluconazol e 100 MG Benzonatate 100 MG Benzonatate 100 MG 09-06 00:00: 00 No 1{aliceu le_as_n eeded} TID Benzonatat e 100 MG Nystatin 227656 UNIT/ML Nystatin 101976 UNIT/ML 2023-08 00:00: 00 No 4{ml} QID Nystatin 479133 UNIT/ML Kenalog (Triamcinol one) Kenalog (Triamcinol one) 02-26 00:00: 00 No 40mg [facility] Breztri Aerosphere 160-9-4.8 MCG/ACT Breztri Aerosphere 160-9-4.8 MCG/ACT No 2{puffs } BID Breztri Aerosphere 160-9-4.8 MCG/ACT Jardiance 25 MG Jardiance 25 MG No 1{table t} QD Jardiance 25 MG Cyclobenzap rine HCl 10 MG Cyclobenzap rine HCl 10 MG No Cyclobenza elmer HCl 10 MG hydroCHLORO thiazide 12.5 MG hydroCHLORO thiazide 12.5 MG No 1{table t_in_ e_morni ng} QD hydroCHLOR Othiazide 12.5 MG Atorvastati n Calcium 40 MG Atorvastati n Calcium 40 MG No QD Atorvastat in Calcium 40 MG predniSONE 10 MG predniSONE 10 MG No 1{table t} QD predniSONE 10 MG Omeprazole 40 MG Omeprazole 40 MG No QD Omeprazole 40 MG amLODIPine Besylate 2.5 MG amLODIPine Besylate 2.5 MG No 1{table t} QD amLODIPine Besylate 2.5 MG Montelukast Sodium 10 MG Montelukast Sodium 10 MG No QD Montelukas t Sodium 10 MG Gabapentin 600 MG Gabapentin 600 MG No 1{capsu le} TID Gabapentin 600 MG Folic Acid 1 MG Folic Acid 1 MG No 1{table t} QD Folic Acid 1 MG Ventolin HFA 108 (90 Base) MCG/ACT Ventolin HFA 108 (90 Base) MCG/ACT No 1{puff_ as_need ed} 6xD Ventolin HFA 108 (90 Base) MCG/ACT metFORMIN HCl 1000 MG metFORMIN HCl 1000 MG No 1{table t_with_ meals} BID metFORMIN HCl 1000 MG Immunizations Ordered Immunization Name Filled Immunization Name Date Status Comments Source Flucelvax - multidose vial Flucelvax - multidose vial 2021-08-10 17:00:00 Completed [facility] Flucelvax - multidose vial Flucelvax - multidose vial 2021-08-10 17:00:00 Completed [facility] Flucelvax - multidose vial Flucelvax - multidose vial 2021-08-10 17:00:00 Completed [facility] Flucelvax - multidose vial Flucelvax - multidose vial 2021-08-10 17:00:00 Completed [facility] Flucelvax - multidose vial Flucelvax - multidose vial 2021-08-10 17:00:00 Completed [facility] Flucelvax - multidose vial Flucelvax - multidose vial 2021-08-10 17:00:00 Completed [facility] Afluria single dose Afluria single dose 14:49:00 Completed [facility] Afluria single dose Afluria single dose 14:49:00 Completed [facility] Afluria single dose Afluria single dose 14:49:00 Completed [facility] Afluria single dose Afluria single dose 14:49:00 Completed [facility] Afluria single dose Afluria single dose 14:49:00 Completed [facility] Afluria single dose Afluria single dose 14:49:00 Completed [facility] Afluria single dose Afluria single dose 14:49:00 Completed [facility] Afluria single dose Afluria single dose 14:49:00 Completed [facility] Afluria single dose Afluria single dose 00:00:00 Completed [facility] Kenalog (Triamcinolone) Kenalog (Triamcinolone) 2019-02-26 08:06:00 Completed [facility] Kenalog (Triamcinolone) Kenalog (Triamcinolone) 2019-02-26 08:06:00 Completed [facility] Kenalog (Triamcinolone) Kenalog (Triamcinolone) 2019-02-26 08:06:00 Completed [facility] Afluria (IIV4) - 3 years and older - SDS - 0.5mL Afluria (IIV4) - 3 years and older - SDS - 0.5mL Unknown Completed [facility] Flucelvax (ccIIV4) - MDV - 0.5mL Flucelvax (ccIIV4) - MDV - 0.5mL Unknown Completed [facility] Flucelvax (ccIIV4) - SDS - 0.5mL Flucelvax (ccIIV4) - SDS - 0.5mL Unknown Completed [facility] Afluria (IIV4) - 3 years and older - SDS - 0.5mL Afluria (IIV4) - 3 years and older - SDS - 0.5mL Unknown Completed [facility] Flucelvax (ccIIV4) - MDV - 0.5mL Flucelvax (ccIIV4) - MDV - 0.5mL Unknown Completed [facility] Flucelvax (ccIIV4) - SDS - 0.5mL Flucelvax (ccIIV4) - SDS - 0.5mL Unknown Completed [facility] Boostrix (Tdap) Boostrix (Tdap) Unknown Completed [facility] Afluria single dose Afluria single dose Unknown Completed [facility] Flucelvax - multidose vial Flucelvax - multidose vial Unknown Completed [facility] Flucelvax - single dose syringe Flucelvax - single dose syringe Unknown Completed [facility] Afluria single dose Afluria single dose Unknown Completed [facility] Flucelvax - multidose vial Flucelvax - multidose vial Unknown Completed [facility] Flucelvax - single dose syringe Flucelvax - single dose syringe Unknown Completed [facility] Afluria single dose Afluria single dose Unknown Completed [facility] Flucelvax - multidose vial Flucelvax - multidose vial Unknown Completed [facility] Flucelvax - single dose syringe Flucelvax - single dose syringe Unknown Completed [facility] Afluria single dose Afluria single dose Unknown Completed [facility] Flucelvax - multidose vial Flucelvax - multidose vial Unknown Completed [facility] Flucelvax - single dose syringe Flucelvax - single dose syringe Unknown Completed [facility] Afluria single dose Afluria single dose Unknown Completed [facility] Flucelvax - multidose vial Flucelvax - multidose vial Unknown Completed [facility] Flucelvax - single dose syringe Flucelvax - single dose syringe Unknown Completed [facility] Afluria single dose Afluria single dose Unknown Completed [facility] Flucelvax - multidose vial Flucelvax - multidose vial Unknown Completed [facility] Flucelvax - single dose syringe Flucelvax - single dose syringe Unknown Completed [facility] Afluria single dose Afluria single dose Unknown Completed [facility] Flucelvax - multidose vial Flucelvax - multidose vial Unknown Completed [facility] Flucelvax - single dose syringe Flucelvax - single dose syringe Unknown Completed [facility] Afluria single dose Afluria single dose Unknown Completed [facility] Flucelvax - multidose vial Flucelvax - multidose vial Unknown Completed [facility] Flucelvax - single dose syringe Flucelvax - single dose syringe Unknown Completed [facility] Afluria single dose Afluria single dose Unknown Completed [facility] Flucelvax - multidose vial Flucelvax - multidose vial Unknown Completed [facility] Flucelvax - single dose syringe Flucelvax - single dose syringe Unknown Completed [facility] Afluria (IIV4) - 3 years and older - SDS - 0.5mL Afluria (IIV4) - 3 years and older - SDS - 0.5mL Unknown Completed [facility] Flucelvax (ccIIV4) - MDV - 0.5mL Flucelvax (ccIIV4) - MDV - 0.5mL Unknown Completed [facility] Flucelvax (ccIIV4) - SDS - 0.5mL Flucelvax (ccIIV4) - SDS - 0.5mL Unknown Completed [facility] Afluria (IIV4) - 3 years and older - SDS - 0.5mL Afluria (IIV4) - 3 years and older - SDS - 0.5mL Unknown Completed [facility] Flucelvax (ccIIV4) - MDV - 0.5mL Flucelvax (ccIIV4) - MDV - 0.5mL Unknown Completed [facility] Flucelvax (ccIIV4) - SDS - 0.5mL Flucelvax (ccIIV4) - SDS - 0.5mL Unknown Completed [facility] Afluria (IIV4) - 3 years and older - SDS - 0.5mL Afluria (IIV4) - 3 years and older - SDS - 0.5mL Unknown Completed [facility] Flucelvax (ccIIV4) - MDV - 0.5mL Flucelvax (ccIIV4) - MDV - 0.5mL Unknown Completed [facility] Flucelvax (ccIIV4) - SDS - 0.5mL Flucelvax (ccIIV4) - SDS - 0.5mL Unknown Completed [facility] Afluria (IIV4) - 3 years and older - SDS - 0.5mL Afluria (IIV4) - 3 years and older - SDS - 0.5mL Unknown Completed [facility] Flucelvax (ccIIV4) - MDV - 0.5mL Flucelvax (ccIIV4) - MDV - 0.5mL Unknown Completed [facility] Flucelvax (ccIIV4) - SDS - 0.5mL Flucelvax (ccIIV4) - SDS - 0.5mL Unknown Completed [facility] Afluria (IIV4) - 3 years and older - SDS - 0.5mL Afluria (IIV4) - 3 years and older - SDS - 0.5mL Unknown Completed [facility] Flucelvax (ccIIV4) - MDV - 0.5mL Flucelvax (ccIIV4) - MDV - 0.5mL Unknown Completed [facility] Flucelvax (ccIIV4) - SDS - 0.5mL Flucelvax (ccIIV4) - SDS - 0.5mL Unknown Completed [facility] Vital Signs Vital Name Observation Time Observation Value Comments S ource height 2024-09-06 13:00:00 74 [in_i] Commo n [facility] weight 2024-09-06 13:00:00 237.6 [lb_av] Co mmon [facility] temperature 2024-09-06 13:00:00 97.6 [degF] Com mon [facility] bmi 2024-09-06 13:00:00 30.5 kg/m2 Commo n [facility] oximetry 2024-09-06 13:00:00 95 % Commo n [facility] respiratory rate 2024-09-06 13:00:00 16 /min Common [facility] blood pressure systolic 2024-09-06 13:00:00 142 mm[facility]Hg[facility] diastolic 2024-09-06 13:00:00 80 mm[facility]Hg[facility] height 2024-07-19 13:20:00 74 [in_i] Commo n [facility] weight 2024-07-19 13:20:00 240 [lb_av] Comm on [facility] temperature 2024-07-19 13:20:00 97.2 [degF] Com mon [facility] bmi 2024-07-19 13:20:00 30.81 kg/m2 Comm on [facility] oximetry 2024-07-19 13:20:00 99 % Commo n [facility] respiratory rate 2024-07-19 13:20:00 16 /min [facility] blood pressure systolic 2024-07-19 13:20:00 136 mm[Hg] [facility] blood pressure diastolic 2024-07-19 13:20:00 70 mm[Hg] [facility] height 2024-03-22 11:40:00 74 [in_i] Commo n [facility] weight 2024-03-22 11:40:00 235 [lb_av] Comm on [facility] bmi 2024-03-22 11:40:00 30.17 kg/m2 Comm on [facility] height 2024-03-22 11:40:00 74 [in_i] Commo n [facility] weight 2024-03-22 11:40:00 235 [lb_av] Comm on [facility] bmi 2024-03-22 11:40:00 30.17 kg/m2 Comm on [facility] height 2023-11-20 15:40:00 74 [in_i] Commo n [facility] weight 2023-11-20 15:40:00 224.6 [lb_av] Co mmon [facility] temperature 2023-11-20 15:40:00 97.8 [degF] Com mon [facility] bmi 2023-11-20 15:40:00 28.83 kg/m2 Comm on [facility] oximetry 2023-11-20 15:40:00 97 % Commo n [facility] respiratory rate 2023-11-20 15:40:00 16 /min Common [facility] blood pressure systolic 2023-11-20 15:40:00 124 mm[Hg] [facility] blood pressure diastolic 2023-11-20 15:40:00 82 mm[Hg] Common [facility] height 2023-05-19 16:00:00 74 [in_i] Commo n [facility] weight 2023-05-19 16:00:00 223.6 [lb_av] Co mmon [facility] temperature 2023-05-19 16:00:00 97.2 [degF] Com mon [facility] bmi 2023-05-19 16:00:00 28.71 kg/m2 Comm on [facility] oximetry 2023-05-19 16:00:00 97 % Commo n [facility] respiratory rate 2023-05-19 16:00:00 16 /min Common [facility] blood pressure systolic 2023-05-19 16:00:00 128 mm[Hg] [facility] blood pressure diastolic 2023-05-19 16:00:00 72 mm[Hg] Common [facility] height 2023-03-28 08:20:00 74 [in_i] Commo n [facility] weight 2023-03-28 08:20:00 229 [lb_av] Comm on [facility] temperature 2023-03-28 08:20:00 97.1 [degF] Com mon [facility] bmi 2023-03-28 08:20:00 29.4 kg/m2 Commo n [facility] oximetry 2023-03-28 08:20:00 97 % Commo n [facility] respiratory rate 2023-03-28 08:20:00 16 /min Common [facility] blood pressure systolic 2023-03-28 08:20:00 128 mm[Hg] [facility] blood pressure diastolic 2023-03-28 08:20:00 72 mm[Hg] [facility] height 2023-02-17 13:00:00 74 [in_i] Commo n [facility] weight 2023-02-17 13:00:00 232.0 [lb_av] Co mmon [facility] temperature 2023-02-17 13:00:00 97.3 [degF] Com mon [facility] bmi 2023-02-17 13:00:00 29.78 kg/m2 Comm on [facility] oximetry 2023-02-17 13:00:00 95 % Commo n [facility] respiratory rate 2023-02-17 13:00:00 16 /min Common [facility] blood pressure systolic 2023-02-17 13:00:00 136 mm[Hg] [facility] blood pressure diastolic 2023-02-17 13:00:00 70 mm[Hg] [facility] height 2022-11-18 16:40:00 74 [in_i] Commo n [facility] weight 2022-11-18 16:40:00 226 [lb_av] Comm on [facility] temperature 2022-11-18 16:40:00 98.1 [degF] Com mon [facility] bmi 2022-11-18 16:40:00 29.01 kg/m2 Comm on [facility] oximetry 2022-11-18 16:40:00 97 % Commo n [facility] respiratory rate 2022-11-18 16:40:00 16 /min Common [facility] blood pressure systolic 2022-11-18 16:40:00 136 mm[Hg] [facility] blood pressure diastolic 2022-11-18 16:40:00 80 mm[Hg] Common [facility] height 2022-10-05 15:40:00 74 [in_i] Commo n [facility] weight 2022-10-05 15:40:00 229 [lb_av] Comm on [facility] temperature 2022-10-05 15:40:00 98.0 [degF] Com mon [facility] bmi 2022-10-05 15:40:00 29.4 kg/m2 Commo n [facility] oximetry 2022-10-05 15:40:00 97 % Commo n [facility] respiratory rate 2022-10-05 15:40:00 17 /min [facility] blood pressure systolic 2022-10-05 15:40:00 124 mm[Hg] [facility] blood pressure diastolic 2022-10-05 15:40:00 70 mm[Hg] Common [facility] height 2022-06-03 15:20:00 74 [in_i] Commo n [facility] weight 2022-06-03 15:20:00 232.6 [lb_av] Co mmon [facility] temperature 2022-06-03 15:20:00 97.4 [degF] Com mon [facility] bmi 2022-06-03 15:20:00 29.86 kg/m2 Comm on [facility] oximetry 2022-06-03 15:20:00 95 % Commo n [facility] respiratory rate 2022-06-03 15:20:00 15 /min [facility] blood pressure systolic 2022-06-03 15:20:00 118 mm[Hg] [facility] blood pressure diastolic 2022-06-03 15:20:00 72 mm[Hg] [facility] height 2021-10-01 14:40:00 74 [in_i] Commo n [facility] weight 2021-10-01 14:40:00 240.2 [lb_av] Co mmon [facility] temperature 2021-10-01 14:40:00 97.3 [degF] Com mon [facility] bmi 2021-10-01 14:40:00 30.84 kg/m2 Comm on [facility] oximetry 2021-10-01 14:40:00 98 % Commo n [facility] respiratory rate 2021-10-01 14:40:00 16 /min [facility] blood pressure systolic 2021-10-01 14:40:00 128 mm[Hg] [facility] blood pressure diastolic 2021-10-01 14:40:00 79 mm[Hg] [facility] height 2021-08-10 16:20:00 74 [in_i] Commo n [facility] weight 2021-08-10 16:20:00 242 [lb_av] Comm on [facility] temperature 2021-08-10 16:20:00 97.9 [degF] Com mon [facility] bmi 2021-08-10 16:20:00 31.07 kg/m2 Comm on [facility] oximetry 2021-08-10 16:20:00 96 % Commo n [facility] respiratory rate 2021-08-10 16:20:00 16 /min [facility] blood pressure systolic 2021-08-10 16:20:00 129 mm[Hg] [facility] blood pressure diastolic 2021-08-10 16:20:00 76 mm[Hg] [facility] height 2021-04-06 16:00:00 74 [in_i] Commo n [facility] weight 2021-04-06 16:00:00 241.6 [lb_av] Co [facility] temperature 2021-04-06 16:00:00 96.9 [degF] Com [facility] bmi 2021-04-06 16:00:00 31.02 kg/m2 Comm on [facility] oximetry 2021-04-06 16:00:00 94 % Commo n [facility] respiratory rate 2021-04-06 16:00:00 18 /min [facility] blood pressure systolic 2021-04-06 16:00:00 138 mm[Hg] [facility] blood pressure diastolic 2021-04-06 16:00:00 79 mm[Hg] [facility] height 2020-10-30 09:40:00 74 [in_i] Commo n [facility] weight 2020-10-30 09:40:00 248.0 [lb_av] Co on [facility] temperature 2020-10-30 09:40:00 97.3 [degF] Com [facility] bmi 2020-10-30 09:40:00 31.84 kg/m2 Comm on [facility] oximetry 2020-10-30 09:40:00 96 % Commo n [facility] respiratory rate 2020-10-30 09:40:00 16 /min [facility] blood pressure systolic 2020-10-30 09:40:00 130 mm[Hg] [facility] blood pressure diastolic 2020-10-30 09:40:00 76 mm[Hg] [facility] Respiratory Rate 2025-02-04 14:02:00 17.00 /min [facility] BP Systolic 2025-02-04 14:02:00 109 mm[Hg] [facility] BP Diastolic 2025-02-04 14:02:00 74 mm[Hg] [facility] Weight Measured 2025-02-04 14:02:00 235.00 pounds [facility] Height Measured 2025-02-04 14:02:00 74.00 inches [facility] Body Temperature 2025-02-04 14:02:00 97.90 degrees [facility] Heart Rate 2025-02-04 14:02:00 98.00 /min [facility] Encounters Start Date/Time End Date/Time Encounter Type Admission Type Attending [facility] Facility Care Department Encounter ID Source 2024-09-04 10:36:00 Outpatient PuckettDontrelli STLMLC [facility] [id number] [facility] 2024-07-17 09:35:00 Outpatient PuckettBrenda STLC ST[facility] [id number] [facility] 2024-06-13 08:22:00 Outpatient PuckettDontrelli STLMLC STLMLC [id number] [facility] 2024-02-21 15:23:00 Outpatient Puckett Brenda STLMLC STLMLC [id number] [facility] 2023-11-20 15:34:00 Outpatient Puckett, Brenda STLMLC STLMLC [id number] [facility] 2023-05-18 14:48:00 Outpatient Puckett Brenda STLMLC STLMLC [id number] [facility] 2023-05-17 09:53:00 Outpatient Puckett Brenda STLMLC STLMLC [id number] [facility] 2023-02-15 08:32:00 Outpatient PuckettBrenda STLMLC STLMLC [id number] [facility] 2022-11-16 10:29:00 Outpatient PuckettBrenda STLMLC STLMLC [id number] [facility] 2022-10-05 09:20:01 Outpatient PuckettBrenda STLMLC STLMLC [id number] [facility] 2022-09-13 15:43:00 Outpatient PuckettBrenda STLMLC STLMLC [id number] [facility] 2022-09-06 11:00:00 Outpatient PuckettBrenda STLMLC STLMLC [id number] [facility] 2022-06-03 16:23:00 Outpatient PuckettBrenda STLMLC STLMLC [id number] [facility] 2022-06-01 13:45:00 Outpatient Dubon, Na STLMLC STLMLC [id number] [facility] 2022-04-29 09:59:01 Outpatient Dubon, Na STLMLC STLMLC [id number] [facility] 2022-03-17 10:24:01 Outpatient Dubon, Na STLMLC STLMLC [id number] [facility] 2021-09-30 10:25:00 Outpatient Dubon, Na STLMLC STLMLC [id number] [facility] 2021-09-01 14:38:56 Outpatient Dubon, Na STLMLC STLMLC [id number] [facility] 2021-09-01 14:30:54 Outpatient Dubon, Na STLMLC STLMLC [id number] [facility] 2021-09-01 12:44:44 Outpatient Sirena Dubon STSTEPHANIE STLMLC [id number] [facility] 2021-09-01 12:42:04 Outpatient Sirena Dubon STSTE[facility]IE STL[facility]C [id number] [facility] 2021-09-01 12:25:11 Outpatient Sirena Dubon STSTE[facility] STL[facility]C [id number] [facility] 2021-09-01 12:16:04 Outpatient Sirena Dubon [facility] STL[facility] [id number] [facility] 2021-09-01 12:07:06 Outpatient Sirena Dubon STSTE[facility] STL[facility]C [id number] [facility] 2021-09-01 11:54:58 Outpatient Sirena Dubon STSTEPH[facility]IE STLMLC [id number] [facility] 2021-09-01 11:43:51 Outpatient Sirena Dubon [facility] [id number] [facility] 2021-09-01 11:30:21 Outpatient Sirena Dubon [facility] STL[facility] [id number] [facility] 2025-02-04 14:02:52 2025-02-04 14:02:52 Outpatient SFA [facility] [id number] [facility] 2025-02-04 00:00:00 2025-02-04 00:00:00 Outpatient Visit [facility] [id number] [facility] 2024-10-01 00:00:00 2024-10-01 00:00:00 (TEL) STLMLC STL[facility]C [id number] [facility] 2024-09-06 00:00:00 2024-09-06 00:00:00 (WELLNESS) Wellness Visit [facility] [id number] [facility] 2024-07-19 00:00:00 2024-07-19 00:00:00 OFFICE VISIT ESTAB PT LEVEL 4 [facility]LMLC STLMLC [id number] [facility] 2024-03-22 00:00:00 2024-03-22 00:00:00 OFFICE VISIT ESTAB PT LEVEL 4 [facility]LMLC STLMLC [id number] [facility] 2023-11-20 00:00:00 2023-11-20 00:00:00 OFFICE VISIT ESTAB PT LEVEL 4 STLMLC STLMLC [id number] [facility] 2023-10-26 00:00:00 2023-10-26 00:00:00 (TEL) STLMLC STLMLC [id number] [facility] 2023-07-05 00:00:00 2023-07-05 00:00:00 (TEL) STLMLC STLMLC [id number] [facility] 2023-07-03 00:00:00 2023-07-03 00:00:00 (TEL) STLMLC STLMLC [id number] [facility] 2023-05-19 00:00:00 2023-05-19 00:00:00 OFFICE VISIT ESTAB PT LEVEL 4 STLMLC STLMLC [id number] [facility] 2023-03-28 00:00:00 2023-03-28 00:00:00 OFFICE VISIT ESTAB PT LEVEL 4 [facility]LMLC STLMLC [id number] [facility] 2023-03-27 00:00:00 2023-03-27 00:00:00 (TEL) STLMLC STLMLC [id number] [facility] 2023-02-17 00:00:00 2023-02-17 00:00:00 OFFICE VISIT ESTAB PT LEVEL 4 STLMLC STLMLC [id number] [facility] 2023-02-17 00:00:00 2023-02-17 00:00:00 (TEL) STLMLC STLMLC [id number] [facility] 2023-01-25 00:00:00 2023-01-25 00:00:00 (TEL) STLMLC STLMLC [id number] [facility] 2022-11-18 00:00:00 2022-11-18 00:00:00 OFFICE VISIT ESTAB PT LEVEL 4 STLMLC STLMLC [id number] [facility] 2022-11-07 00:00:00 2022-11-07 00:00:00 (TEL) STLMLC STLMLC [id number] [facility] 2022-10-28 00:00:00 2022-10-28 00:00:00 (TEL) STLMLC STLMLC [id number] [facility] 2022-10-05 00:00:00 2022-10-05 00:00:00 OFFICE VISIT ESTAB PT LEVEL 4 STLMLC STLMLC [id number] [facility] 2022-10-04 00:00:00 2022-10-04 00:00:00 (TEL) STLMLC STLMLC [id number] [facility] 2022-09-29 00:00:00 2022-09-29 00:00:00 (TEL) STLMLC STLMLC [id number] [facility] 2022-07-08 00:00:00 2022-07-08 00:00:00 (TEL) STLMLC STLMLC [id number] [facility] 2022-06-08 00:00:00 2022-06-08 00:00:00 (TEL) STLMLC STLMLC [id number] [facility] 2022-06-03 00:00:00 2022-06-03 00:00:00 OFFICE VISIT ESTAB PT LEVEL 4 STLMLC STLMLC [id number] [facility] 2022-05-30 00:00:00 2022-05-30 00:00:00 (TEL) STLMLC STLMLC [id number] [facility] 2021-10-01 00:00:00 2021-10-01 00:00:00 PREV VISIT EST AGE 40-64 STLMLC STLMLC [id number] [facility] 2021-08-10 00:00:00 2021-08-10 00:00:00 OFFICE VISIT ESTAB PT LEVEL 4 STLMLC STLMLC [id number] [facility] 2021-06-17 00:00:00 2021-06-17 00:00:00 (TEL) STLMLC STLMLC [id number] [facility] 2021-04-06 00:00:00 2021-04-06 00:00:00 (TEL) STLMLC STLMLC [id number] [facility] 2021-04-06 00:00:00 2021-04-06 00:00:00 OFFICE VISIT EST PT LEVEL 3 STLMLC STLMLC [id number] [facility] 2021-03-09 00:00:00 2021-03-09 00:00:00 OL DIG E/M SVC 11-20 MIN STLMLC STLMLC [id number] [facility] 2021-02-10 00:00:00 2021-02-10 00:00:00 (TEL) STLMLC STLMLC [id number] [facility] 2021-01-20 00:00:00 2021-01-20 00:00:00 OL DIG E/M SVC 11-20 MIN STLMLC STLMLC [id number] [facility] 2021-01-20 00:00:00 2021-01-20 00:00:00 (TEL) STLMLC STLMLC [id number] [facility] 2021-01-20 00:00:00 2021-01-20 00:00:00 (TEL) STLMLC STLMLC [id number] [facility] 2021-01-18 00:00:00 2021-01-18 00:00:00 (TEL) STLMLC STLMLC [id number] [facility] 2020-10-30 00:00:00 2020-10-30 00:00:00 OFFICE VISIT ESTAB PT LEVEL 4 STLMLC STLMLC [id number] [facility] 2020-10-23 00:00:00 2020-10-23 00:00:00 (TEL) STLMLC STLMLC [id number] [facility] 2020-08-31 00:00:00 2020-08-31 00:00:00 Outpatient STLMLC STLMLC [id number] [facility] 2020-08-28 00:00:00 2020-08-28 00:00:00 Outpatient STLMLC STLMLC [id number] [facility] 2020-07-30 00:00:00 2020-07-30 00:00:00 Outpatient STLMLC STLMLC [id number] [facility] 2020-07-29 00:00:00 2020-07-29 00:00:00 Outpatient STLMLC STLMLC [id number] [facility] 2020-06-26 00:00:00 2020-06-26 00:00:00 Outpatient STLMLC STLMLC [id number] [facility] 2020-05-25 00:00:00 2020-05-25 00:00:00 Outpatient STLMLC STLMLC [id number] [facility] 2020-05-22 00:00:00 2020-05-22 00:00:00 Outpatient STLMLC STLMLC [id number] [facility] 2020-05-22 00:00:00 2020-05-22 00:00:00 Outpatient STLMLC STLMLC [id number] [facility] 2020-05-01 00:00:00 2020-05-01 00:00:00 Outpatient STLMLC STLMLC [id number] [facility] 2020-04-14 16:47:00 2020-04-14 16:47:[address] [facility] [id number] [facility] 2020-04-14 10:40:00 2020-04-14 10:40:00 [facility] Medicine [id number] [facility] 2020-04-14 10:37:00 2020-04-14 10:37:[address] [facility] [id number] [facility] 2020-03-13 15:00:00 2020-03-13 15:00:[address] [facility] [id number] [facility] 2020-03-12 09:11:00 2020-03-12 09:11:00 [facility] [id number] [facility] 2020-03-01 11:25:00 2020-03-01 11:25:[address] [facility] [id number] [facility] 2020-02-14 09:00:00 2020-02-14 09:00:00 [facility] [id number] [facility] 2019-07-19 13:40:00 2019-07-19 13:40:00 [facility] [id number] [facility] 2019-02-28 14:20:00 2019-02-28 14:20:[address] [facility] [id number] [facility] 2019-02-26 15:40:00 2019-02-26 15:40:[address] [facility] [id number] [facility] 2018-09-21 09:30:00 2018-09-21 09:30:00 [facility] [id number] [facility] 2018-08-31 10:29:00 2018-08-31 10:29:[address] [facility] [id number] [facility] 2018-08-09 11:30:00 2018-08-09 11:30:[address] [facility] [id number] [facility] Results Test Description Test Time Test Comments Results Result Co mments Source COMPREHENSIVE METABOLIC [id number] 00:00:00* Test Item Value Reference Range Interpretation Comme nts NUCLEATED RBCS (test code = 95400-1) 0.0 /100 WBC'S See_Comment [Automated messa ge] The system which generated this result transmitted reference range: 0.0 /100 WBC'S. The reference range was not used to interpret this result as normal/abnormal. ABSOLUTE EOSINOPHILS (test code = 72939-9) 0.08 K/UL See_Comment [Automated messa ge] The system which generated this result transmitted reference range: 0.00-0.50 K/UL. The reference range was not used to interpret this result as normal/abnormal. ABSOLUTE LYMPHOCYTES (test code = 10974-0) 1.33 K/UL See_Comment [Automated messa ge] The system which generated this result transmitted reference range: 1.00-4.00 K/UL. The reference range was not used to interpret this result as normal/abnormal. ABSOLUTE MONOCYTES (test code = 66150-2) 0.49 K/UL See_Comment [Automated messa ge] The system which generated this result transmitted reference range: 0.20-1.00 K/UL. The reference range was not used to interpret this result as normal/abnormal. ABSOLUTE NEUTROPHILS (test code = 31364-3) 3.95 K/UL See_Comment [Automated messa ge] The system which generated this result transmitted reference range: 1.50-7.50 K/UL. The reference range was not used to interpret this result as normal/abnormal. BASOPHILS (test code = 40422-3) 0.7 % EOSINOPHILS (test code = 62882-8) 1.4 % HEMATOCRIT (test code = 10400-9) 44.9 % See_Comment [Automated messa ge] The system which generated this result transmitted reference range: 40.0-51.0 %. The reference range was not used to interpret this result as normal/abnormal. HEMOGLOBIN (test code = 718-7) 15.0 G/DL See_Comment [Automated messa ge] The system which generated this result transmitted reference range: 13.5-17.0 G/DL. The reference range was not used to interpret this result as normal/abnormal. LYMPHOCYTES (test code = 95024-4) 22.5 % MCH (test code = 94382-6) 32.7 PG See_Comment [Automated messa ge] The system which generated this result transmitted reference range: 25.0-33.0 PG. The reference range was not used to interpret this result as normal/abnormal. MCHC (test code = 94871-6) 33.4 G/DL See_Comment [Automated messa ge] The system which generated this result transmitted reference range: 31.0-36.0 G/DL. The reference range was not used to interpret this result as normal/abnormal. MCV (test code = 06067-0) 97.8 fL See_Comment [Automated messa ge] The system which generated this result transmitted reference range: 80.0-99.0 fL. The reference range was not used to interpret this result as normal/abnormal. MONOCYTES (test code = 02459-2) 8.3 % NEUTROPHILS (test code = 03925-2) 66.6 % PLATELET COUNT (test code = 48233-6) 159 K/UL See_Comment [Automated messa ge] The system which generated this result transmitted reference range: 130-400 K/UL. The reference range was not used to interpret this result as normal/abnormal. RBC (test code = 28194-3) 4.59 M/UL See_Comment [Automated messa ge] The system which generated this result transmitted reference range: 4.50-6.10 M/UL. The reference range was not used to interpret this result as normal/abnormal. RDW (test code = 37081-9) 12.1 % See_Comment [Automated messa ge] The system which generated this result transmitted reference range: 11.5-15.0 %. The reference range was not used to interpret this result as normal/abnormal. WBC (test code = 50000-9) 5.9 K/UL See_Comment [Automated messa ge] The system which generated this result transmitted reference range: 3.5-11.0 K/UL. The reference range was not used to interpret this result as normal/abnormal. HEMOGLOBIN A1c (test code = 4548-4) 9.8 % See_Comment H [Automated messa ge] The system which generated this result transmitted reference range: 4.2-5.6 %. The reference range was not used to interpret this result as normal/abnormal. ALBUMIN, URINE, RANDOM (test code = 90663-2) <0.2 MG/DL NOT ESTAB MG/DL CALC ALBUMIN/CREAT, RND (test code = 67483-2) <2 MG/G See_Comment [Automated messa ge] The system which generated this result transmitted reference range: <30 MG/G. The reference range was not used to interpret this result as normal/abnormal. CREATININE, URINE, CONC. (test code = 2161-8) 83.8 MG/DL NOT ESTAB MG/DL ALBUMIN (test code = 1751-7) 3.9 G/DL See_Comment [Automated messa ge] The system which generated this result transmitted reference range: 3.5-5.2 G/DL. The reference range was not used to interpret this result as normal/abnormal. ALKALINE PHOSPHATASE (test code = 6768-6) 72 U/L See_Comment [Automated message] The system which [...] as normal/abnormal. BUN (test code = 3094-0) 12 MG/DL See_Comment [Automated [employer]] The system which generated this result transmitted reference range: 8-23 MG/DL. The reference range was not used to interpret this result as normal/abnormal. CALCIUM (test code = 24131-4) 9.4 MG/DL See_Comment [Automated [employer]] The system which generated this result transmitted reference range: 8.5-10.5 MG/DL. The reference range was not used to interpret this result as normal/abnormal. CALC A/G RATIO (test code = 1759-0) 1.5 RATIO See_Comment [Automated [employer]] The system which generated this result transmitted reference range: 1.0-2.6 RATIO. The reference range was not used to interpret this result as normal/abnormal. CALC BUN/CREAT (test code = 3097-3) 21 RATIO See_Comment [Automated messa ge] The system which generated this result transmitted reference range: 6-28 RATIO. The reference range was not used to interpret this result as normal/abnormal. CALC GLOBULIN (test code = 24326-6) 2.6 G/DL See_Comment [Automated messa ge] The system which generated this result transmitted reference range: 1.9-3.7 G/DL. The reference range was not used to interpret this result as normal/abnormal. CARBON DIOXIDE (test code = 1963-8) 27 MEQ/L See_Comment [Automated messa ge] The system which generated this result transmitted reference range: 19-31 MEQ/L. The reference range was not used to interpret this result as normal/abnormal. CHLORIDE (test code = 2075-0) 99 MEQ/L See_Comment [Automated messa ge] The system which generated this result transmitted reference range: 95-107 MEQ/L. The reference range was not used to interpret this result as normal/abnormal. CREATININE (test code = 2160-0) 0.56 MG/DL See_Comment L [Automated messa ge] The system which generated this result transmitted reference range: 0.80-1.40 MG/DL. The reference range was not used to interpret this result as normal/abnormal. eGFR (2020 CKD-EPI) (test code = 68458-7) 113 ML/MIN/1.73 See_Comment [Automated message] The system which generated this result transmitted reference range: >60 ML/MIN/1.73. The reference range was not used to interpret this result as normal/abnormal. GLUCOSE (test code = 1558-6) 240 MG/DL See_Comment H [Automated messa ge] The system which generated this result transmitted reference range: 70-99 MG/DL. The reference range was not used to interpret this result as normal/abnormal. POTASSIUM (test code = 2823-3) 4.3 MEQ/L See_Comment [Automated messa ge] The system which generated this result transmitted reference range: 3.5-5.4 MEQ/L. The reference range was not used to interpret this result as normal/abnormal. PROTEIN, TOTAL (test code = 2885-2) 6.5 G/DL See_Comment [Automated messa ge] The system which generated this result transmitted reference range: 6.1-8.3 G/DL. The reference range was not used to interpret this result as normal/abnormal. AST (test code = 1920-8) 22 U/L See_Comment [Automated messa ge] The system which generated this result transmitted reference range: 9-50 U/L. The reference range was not used to interpret this result as normal/abnormal. ALT (test code = 1742-6) 31 U/L See_Comment [Automated messa ge] The system which generated this result transmitted reference range: 5-50 U/L. The reference range was not used to interpret this result as normal/abnormal. SODIUM (test code = 2951-2) 137 MEQ/L See_Comment [Automated messa ge] The system which generated this result transmitted reference range: 133-146 MEQ/L. The reference range was not used to interpret this result as normal/abnormal. NO URINE PROVIDED:2024-05-14 00:00:00* Test Item Value Reference Range Interpretation Comme nts NUCLEATED RBCS (test code = 28253-6) 0.0 /100 WBC'S See_Comment [Automated message] The system which generated this result transmitted reference range: 0.0 /100 WBC'S. The reference range was not used to interpret this result as normal/abnormal. ABSOLUTE EOSINOPHILS (test code = 76511-3) 0.07 K/UL See_Comment [Automated message] The system which generated this result transmitted reference range: 0.00-0.50 K/UL. The reference range was not used to interpret this result as normal/abnormal. ABSOLUTE LYMPHOCYTES (test code = 26371-4) 1.49 K/UL See_Comment [Automated message] The system which generated this result transmitted reference range: 1.00-4.00 K/UL. The reference range was not used to interpret this result as normal/abnormal. ABSOLUTE MONOCYTES (test code = 96099-1) 0.47 K/UL See_Comment [Automated message] The system which generated this result transmitted reference range: 0.20-1.00 K/UL. The reference range was not used to interpret this result as normal/abnormal. ABSOLUTE NEUTROPHILS (test code = 42595-5) 3.89 K/UL See_Comment [Automated message] The system which generated this result transmitted reference range: 1.50-7.50 K/UL. The reference range was not used to interpret this result as normal/abnormal. BASOPHILS (test code = 81973-2) 0.3 % EOSINOPHILS (test code = 80621-1) 1.2 % HEMATOCRIT (test code = 10737-6) 45.7 % See_Comment [Automated messa ge] The system which generated this result transmitted reference range: 40.0-51.0 %. The reference range was not used to interpret this result as normal/abnormal. HEMOGLOBIN (test code = 718-7) 15.7 G/DL See_Comment [Automated messa ge] The system which generated this result transmitted reference range: 13.5-17.0 G/DL. The reference range was not used to interpret this result as normal/abnormal. LYMPHOCYTES (test code = 63742-9) 25.0 % MCH (test code = 74658-5) 32.7 PG See_Comment [Automated messa ge] The system which generated this result transmitted reference range: 25.0-33.0 PG. The reference range was not used to interpret this result as normal/abnormal. MCHC (test code = 90563-2) 34.4 G/DL See_Comment [Automated messa ge] The system which generated this result transmitted reference range: 31.0-36.0 G/DL. The reference range was not used to interpret this result as normal/abnormal. MCV (test code = 48042-6) 95.2 fL See_Comment [Automated messa ge] The system which generated this result transmitted reference range: 80.0-99.0 fL. The reference range was not used to interpret this result as normal/abnormal. MONOCYTES (test code = 59231-5) 7.9 % NEUTROPHILS (test code = 69567-6) 65.3 % PLATELET COUNT (test code = 95314-2) 190 K/UL See_Comment [Automated messa ge] The system which generated this result transmitted reference range: 130-400 K/UL. The reference range was not used to interpret this result as normal/abnormal. RBC (test code = 26304-6) 4.80 M/UL See_Comment [Automated messa ge] The system which generated this result transmitted reference range: 4.50-6.10 M/UL. The reference range was not used to interpret this result as normal/abnormal. RDW (test code = 69981-2) 11.4 % See_Comment L [Automated messa ge] The system which generated this result transmitted reference range: 11.5-15.0 %. The reference range was not used to interpret this result as normal/abnormal. WBC (test code = 06246-9) 6.0 K/UL See_Comment [Automated messa ge] The system which generated this result transmitted reference range: 3.5-11.0 K/UL. The reference range was not used to interpret this result as normal/abnormal. HEMOGLOBIN A1c (test code = 4548-4) 9.8 % See_Comment H [Automated messa ge] The system which generated this result transmitted reference range: 4.2-5.6 %. The reference range was not used to interpret this result as normal/abnormal. CALC LDL CHOL (test code = 04599-0) 127 MG/DL See_Comment H [Automated messa ge] The system which generated this result transmitted reference range: <100 MG/DL. The reference range was not used to interpret this result as normal/abnormal. CHOLESTEROL (test code = 2093-3) 238 MG/DL See_Comment H [Automated messa ge] The system which generated this result transmitted reference range: <200 MG/DL. The reference range was not used to interpret this result as normal/abnormal. HDL CHOLESTEROL (test code = 2085-9) 89 MG/DL See_Comment [Automated messa ge] The system which generated this result transmitted reference range: >39 MG/DL. The reference range was not used to interpret this result as normal/abnormal. RISK RATIO LDL/HDL (test code = 95667-3) 1.43 RATIO See_Comment [Automated message] The system which generated this result transmitted reference range: <3.55 RATIO. The reference range was not used to interpret this result as normal/abnormal. TRIGLYCERIDES (test code = 2571-8) 116 MG/DL See_Comment [Automated messa ge] The system which generated this result transmitted reference range: <150 MG/DL. The reference range was not used to interpret this result as normal/abnormal. ALBUMIN (test code = 1751-7) 4.3 G/DL See_Comment [Automated messa ge] The system which generated this result transmitted reference range: 3.5-5.2 G/DL. The reference range was not used to interpret this result as normal/abnormal. ALKALINE PHOSPHATASE (test code = 6768-6) 72 U/L See_Comment [Automated message] The system which generated this result transmitted reference range: 40-123 U/L. The reference range was not used to interpret this result as normal/abnormal. BILIRUBIN, TOTAL (test code = 1975-2) 0.5 MG/DL See_Comment [Automated messa ge] The system which generated this result transmitted reference range: <=1.2 MG/DL. The reference range was not used to interpret this result as normal/abnormal. BUN (test code = 3094-0) 15 MG/DL See_Comment [Automated messa ge] The system which generated this result transmitted reference range: 8-23 MG/DL. The reference range was not used to interpret this result as normal/abnormal. CALCIUM (test code = 92352-3) 9.7 MG/DL See_Comment [Automated messa ge] The system which generated this result transmitted reference range: 8.5-10.5 MG/DL. The reference range was not used to interpret this result as normal/abnormal. CALC A/G RATIO (test code = 1759-0) 1.7 RATIO See_Comment [Automated messa ge] The system which generated this result transmitted reference range: 1.0-2.6 RATIO. The reference range was not used to interpret this result as normal/abnormal. CALC BUN/CREAT (test code = 3097-3) 22 RATIO See_Comment [Automated messa ge] The system which generated this result transmitted reference range: 6-28 RATIO. The reference range was not used to interpret this result as normal/abnormal. CALC GLOBULIN (test code = 96157-8) 2.6 G/DL See_Comment [Automated messa ge] The system which generated this result transmitted reference range: 1.9-3.7 G/DL. The reference range was not used to interpret this result as normal/abnormal. CARBON DIOXIDE (test code = 1963-8) 30 MEQ/L See_Comment [Automated messa ge] The system which generated this result transmitted reference range: 19-31 MEQ/L. The reference range was not used to interpret this result as normal/abnormal. CHLORIDE (test code = 2075-0) 100 MEQ/L See_Comment [Automated messa ge] The system which generated this result transmitted reference range: 95-107 MEQ/L. The reference range was not used to interpret this result as normal/abnormal. CREATININE (test code = 2160-0) 0.69 MG/DL See_Comment L [Automated messa ge] The system which generated this result transmitted reference range: 0.80-1.40 MG/DL. The reference range was not used to interpret this result as normal/abnormal. eGFR (2020 CKD-EPI) (test code = 16447-4) 106 ML/MIN/1.73 See_Comment [Automated message] The system which generated this result transmitted reference range: >60 ML/MIN/1.73. The reference range was not used to interpret this result as normal/abnormal. GLUCOSE (test code = 1558-6) 207 MG/DL See_Comment H [Automated messa ge] The system which generated this result transmitted reference range: 70-99 MG/DL. The reference range was not used to interpret this result as normal/abnormal. POTASSIUM (test code = 2823-3) 4.7 MEQ/L See_Comment [Automated messa ge] The system which generated this result transmitted reference range: 3.5-5.4 MEQ/L. The reference range was not used to interpret this result as normal/abnormal. PROTEIN, TOTAL (test code = 2885-2) 6.9 G/DL See_Comment [Automated messa ge] The system which generated this result transmitted reference range: 6.1-8.3 G/DL. The reference range was not used to interpret this result as normal/abnormal. AST (test code = 1920-8) 21 U/L See_Comment [Automated messa ge] The system which generated this result transmitted reference range: 9-50 U/L. The reference range was not used to interpret this result as normal/abnormal. ALT (test code = 1742-6) 30 U/L See_Comment [Automated messa ge] The system which generated this result transmitted reference range: 5-50 U/L. The reference range was not used to interpret this result as normal/abnormal. SODIUM (test code = 2951-2) 143 MEQ/L See_Comment [Automated messa ge] The system which generated this result transmitted reference range: 133-146 MEQ/L. The reference range was not used to interpret this result as normal/abnormal. CBC W/AUTO [id number] 00:00:00* Test Item Value Reference Range Interpretation Comme nts NUCLEATED RBCS (test code = 92745-4) 0.0 /100 WBC'S See_Comment [Automated messa ge] The system which generated this result transmitted reference range: 0.0 /100 WBC'S. The reference range was not used to interpret this result as normal/abnormal. ABSOLUTE EOSINOPHILS (test code = 54440-3) 0.21 K/UL See_Comment [Automated messa ge] The system which generated this result transmitted reference range: 0.00-0.50 K/UL. The reference range was not used to interpret this result as normal/abnormal. ABSOLUTE LYMPHOCYTES (test code = 64946-7) 1.20 K/UL See_Comment [Automated messa ge] The system which generated this result transmitted reference range: 1.00-4.00 K/UL. The reference range was not used to interpret this result as normal/abnormal. ABSOLUTE MONOCYTES (test code = 61235-3) 0.42 K/UL See_Comment [Automated messa ge] The system which generated this result transmitted reference range: 0.20-1.00 K/UL. The reference range was not used to interpret this result as normal/abnormal. ABSOLUTE NEUTROPHILS (test code = 92281-2) 2.50 K/UL See_Comment [Automated messa ge] The system which generated this result transmitted reference range: 1.50-7.50 K/UL. The reference range was not used to interpret this result as normal/abnormal. BASOPHILS (test code = 40475-6) 0.7 % EOSINOPHILS (test code = 99582-3) 4.8 % HEMATOCRIT (test code = 00174-7) 44.3 % See_Comment [Automated messa ge] The system which generated this result transmitted reference range: 40.0-51.0 %. The reference range was not used to interpret this result as normal/abnormal. HEMOGLOBIN (test code = 718-7) 15.1 G/DL See_Comment [Automated messa ge] The system which generated this result transmitted reference range: 13.5-17.0 G/DL. The reference range was not used to interpret this result as normal/abnormal. LYMPHOCYTES (test code = 39502-0) 27.5 % MCH (test code = 11326-8) 32.1 PG See_Comment [Automated messa ge] The system which generated this result transmitted reference range: 25.0-33.0 PG. The reference range was not used to interpret this result as normal/abnormal. MCHC (test code = 43520-4) 34.1 G/DL See_Comment [Automated messa ge] The system which generated this result transmitted reference range: 31.0-36.0 G/DL. The reference range was not used to interpret this result as normal/abnormal. MCV (test code = 04424-2) 94.3 fL See_Comment [Automated messa ge] The system which generated this result transmitted reference range: 80.0-99.0 fL. The reference range was not used to interpret this result as normal/abnormal. MONOCYTES (test code = 06501-9) 9.6 % NEUTROPHILS (test code = 98250-5) 57.4 % PLATELET COUNT (test code = 15734-4) 151 K/UL See_Comment [Automated messa ge] The system which generated this result transmitted reference range: 130-400 K/UL. The reference range was not used to interpret this result as normal/abnormal. RBC (test code = 48771-0) 4.70 M/UL See_Comment [Automated messa ge] The system which generated this result transmitted reference range: 4.50-6.10 M/UL. The reference range was not used to interpret this result as normal/abnormal. RDW (test code = 33813-1) 11.8 % See_Comment [Automated messa ge] The system which generated this result transmitted reference range: 11.5-15.0 %. The reference range was not used to interpret this result as normal/abnormal. WBC (test code = 26354-1) 4.4 K/UL See_Comment [Automated messa ge] The system which generated this result transmitted reference range: 3.5-11.0 K/UL. The reference range was not used to interpret this result as normal/abnormal. CBC W/AUTO [id number] 00:00:00* Test Item Value Reference Range Interpretation Comme nts NUCLEATED RBCS (test code = 22944-9) 0.0 /100 WBC'S See_Comment [Automated messa ge] The system which generated this result transmitted reference range: 0.0 /100 WBC'S. The reference range was not used to interpret this result as normal/abnormal. ABSOLUTE EOSINOPHILS (test code = 71379-2) 0.22 K/UL See_Comment [Automated messa ge] The system which generated this result transmitted reference range: 0.00-0.50 K/UL. The reference range was not used to interpret this result as normal/abnormal. ABSOLUTE LYMPHOCYTES (test code = 07016-1) 1.56 K/UL See_Comment [Automated messa ge] The system which generated this result transmitted reference range: 1.00-4.00 K/UL. The reference range was not used to interpret this result as normal/abnormal. ABSOLUTE MONOCYTES (test code = 19896-5) 0.43 K/UL See_Comment [Automated messa ge] The system which generated this result transmitted reference range: 0.20-1.00 K/UL. The reference range was not used to interpret this result as normal/abnormal. ABSOLUTE NEUTROPHILS (test code = 87309-8) 2.99 K/UL See_Comment [Automated messa ge] The system which generated this result transmitted reference range: 1.50-7.50 K/UL. The reference range was not used to interpret this result as normal/abnormal. BASOPHILS (test code = 76738-4) 0.6 % EOSINOPHILS (test code = 12185-2) 4.2 % HEMATOCRIT (test code = 01365-1) 40.1 % See_Comment [Automated messa ge] The [...] result as normal/abnormal. LYMPHOCYTES (test code = 64644-4) 29.7 % MCH (test code = 28336-4) 32.7 PG See_Comment [Automated messa ge] The system which generated this result transmitted reference range: 25.0-33.0 PG. The reference range was not used to interpret this result as normal/abnormal. MCHC (test code = 59546-9) 34.4 G/DL See_Comment [Automated messa ge] The system which generated this result transmitted reference range: 31.0-36.0 G/DL. The reference range was not used to interpret this result as normal/abnormal. MCV (test code = 51750-2) 95.0 fL See_Comment [Automated messa ge] The system which generated this result transmitted reference range: 80.0-99.0 fL. The reference range was not used to interpret this result as normal/abnormal. MONOCYTES (test code = 33453-0) 8.2 % NEUTROPHILS (test code = 61854-7) 56.9 % PLATELET COUNT (test code = 49584-5) 143 K/UL See_Comment [Automated messa ge] The system which generated this result transmitted reference range: 130-400 K/UL. The reference range was not used to interpret this result as normal/abnormal. RBC (test code = 26273-4) 4.22 M/UL See_Comment L [Automated messa ge] The system which generated this result transmitted reference range: 4.50-6.10 M/UL. The reference range was not used to interpret this result as normal/abnormal. RDW (test code = 74551-6) 12.1 % See_Comment [Automated messa ge] The system which generated this result transmitted reference range: 11.5-15.0 %. The reference range was not used to interpret this result as normal/abnormal. WBC (test code = 65760-6) 5.3 K/UL See_Comment [Automated messa ge] The system which generated this result transmitted reference range: 3.5-11.0 K/UL. The reference range was not used to interpret this result as normal/abnormal. Lipid Panel w/ Chol/HDL [id number] 00:00:00* Test Item Value Reference Range Interpretation [...] code = 2085-9) 69 mg/dL See_Comment [Automated [employer]] The system which generated this result transmitted reference range: >39 mg/dL. The reference range was not used to interpret this result as normal/abnormal. T. Chol/HDL Ratio (test code = 9830-1) 2.6 ratio See_Comment [Automated [employer]] The system which generated this result transmitted reference range: 0.0-5.0 ratio. The reference range was not used to interpret this result as normal/abnormal. Microalbumin/Creat Ratio, Random [id number] 00:00:00* Test Item Value Reference Range Interpretation Comme nts Creatinine, Urine (test code = 2161-8) 53.7 mg/dL Not Estab. mg/dL Albumin, Urine (test code = 50657-7) <3.0 ug/mL Not Estab. ug/mL Alb/Creat Ratio (test code = 46197-2) <6 mg/g creat See_Comment [Automated [employer]] The system which generated this result transmitted reference range: 0-29 mg/g creat. The reference range was not used to interpret this result as normal/abnormal. POC, COVID 19 Antigen + Flu by SofiaPOC, COVID 19 Antigen + Flu by Angie Notes Date/Time Note Provider Source Emory Powell [facility]
[2025-03-26] MEDS ORDERED: DIAZEPAM 5 MG TABLET ONE (09:50)
[2025-03-26] MEDS ORDERED: KETOROLAC 30 MG/ML INJ ONE (09:50)
[2025-03-26] MEDS ORDERED: ONDANSETRON 4 MG/2 ML VIAL ONE (09:50)
[2025-03-26] MEDS ORDERED: FAMOTIDINE 20 MG/2 ML VIAL IV ONE (09:50)
[2025-03-26] MEDS ORDERED: MORPHINE 4 MG/ML SYR ONE (09:50)
[2025-03-26] MEDS ORDERED: NA CHLORIDE 0.9% 1,000 ML ONE (09:50)
--- NOTE | 2025-03-26 10:08 | RAD REPORT ---
EXAM: Chest Abd Pelvis Wo Con CLINICAL INDICATION: Male, 59 years old PAIN TECHNIQUE: CT chest, abdomen and pelvis was performed, without IV contrast, as per department protoco l. Axial, sagittal and coronal reconstructions were obtained. One or more of the following dose reduction techniques were used: Automated exposure control, adjustment of the mA and/or kV according to the patient size, and/or iterative reconstruction. Unless otherwise specified, incidental findings do not require dedicated imaging follow-up. [id number]. COMPARISON: Chest CT 11/29/2019 FINDINGS: The lack of intravenous contrast limits the sensitivity of this exam for evaluation of solid visceral organs, vascular structures, and retroperitoneum. ---THORAX--- LOWER NECK AND CHEST WALL: Visualized thyroid gland and soft tissues are normal. MEDIASTINUM AND LYMPH NODES: No mediastinal mass or fluid collection. Normal size mediastinal, hilar, and axillary lymph nodes. THORACIC AORTA: No thoracic aortic aneurysm. Atherosclerotic changes are present. PULMONARY ARTERIES: Caliber is within normal limits. Unable to evaluate for pulmonary emboli due to e ither protocol or lack of contrast. HEART: Normal heart size. Moderate coronary artery calcifications.Trace pericardial effusion. LUNGS AND AIRWAYS: Emphysema. Scattered 4 mm and smaller pulmonary nodules noted which are of doubtfu l significance and do not require follow-up. PLEURA: No pleural effusion. No pneumothorax. ---ABDOMEN/PELVIS--- UPPER GI: No significant abnormality. LIVER: Nodular liver configuration with hepatic steatosis. GALLBLADDER/BILE DUCTS: No biliary ductal dilatation.? PANCREAS: No mass, ductal dilation, or rg-pancreatic fluid. SPLEEN: Unremarkable. ADRENALS: No adrenal masses. KIDNEYS AND URETERS: No hydronephrosis.Limited evaluation for renal lesions in the absence of IV cont rast.No renal calculi.No ureteral calculi. ABDOMINAL AORTA AND OTHER VESSELS: Moderate atherosclerotic changes without aortic aneurysm. PERITONEUM: No abnormal free fluid. No free air. LYMPH NODES: No pathologic lymphadenopathy. ABDOMINAL WALL: Unremarkable SMALL BOWEL/COLON: Small bowel has normal course and caliber. No colonic wall thickening or pericolon ic inflammatory changes. URINARY BLADDER: Nonspecific circumferential bladder wall thickening. REPRODUCTIVE ORGANS: No pathologic process. ---COMBINED--- MUSCULOSKELETAL: ACDF in the cervical spine. Superior endplate deformity along the left aspect of L2 suspicious for superior endplate fracture. Less than 20% loss of height. Remote left clavicle fracture. ADDITIONAL FINDINGS: None. IMPRESSION: Superior endplate deformity along the left aspect of the L2 vertebral body suspicious for an acute co mpression fracture with less than 20% loss of height. Most of the superior endplate is not involved. No other evidence of acute trauma identified.
[2025-03-26 10:17] LABS: Absolute Lymphocytes (CBC) 0.7 K/uL (0.7-4.9); Hematocrit 48.1 % (39.6-49.0); Hemoglobin 16.6 g/dL (13.6-17.9); MCH 33.7 pg (27.0-35.0); MCHC 34.5 g/dL (32.0-36.0); MCV 97.8 fL (80-100); MPV 8.1 fL (7.6-11.3); Nucleated RBC Absolute Count 0.0 (0-0); Nucleated Red Blood Cells % 0.0 % (0-0); RBC Red Blood Cell Count 4.92 M/uL (4.33-5.43); White Blood Count 3.90 thou/uL (4.3-10.9)
[2025-03-26 10:34] LABS: ALT/SGPT 50.0 U/L (16-61); AST/SGOT 52.0 U/L (15-37); Albumin 3.4 g/dL (3.4-5.0); Albumin/Globulin Ratio 0.9 (1.1-1.8); Alkaline Phosphatase 68.0 U/L (45-117); Anion Gap 12.0 mEq/L (5.0-15.0); BUN Blood Urea Nitrogen 8.0 mg/dL (7-18); Globulin 3.6 g/dL (2.3-3.5); Glucose Level 152.0 mg/dL (74-106); Potassium 4.0 mEq/L (3.5-5.1)
[2025-03-26 12:34] LABS: Urine Microscopic Reflex YN NO UMIC
--- NOTE | 2025-03-26 12:42 | ER ---
Nurse's Notes [facility] Name: Emory Lynn Age: 59 yrs Sex: Male : 1965 Arrival Date: 03/26/2025 Time: 09:17 Bed 5 Private MD: Diagnosis: Fall on same level, unspecified;Fracture of lumbar vertebra-L2 SUPERIOR END PLATE LESS THAN 20%;Wedge compression fracture of unspecified lumbar vertebra Presentation: 03/26 09:34 Chief complaint: Patient states: Trip and fell Monday. Back pain started Monday after ll1 bending over to get a mortensen. Coronavirus screen: Client denies travel out of the [place] in the last 14 days. At this time, the client does not indicate any symptoms associated with coronavirus-19. Ebola Screen: Patient denies travel to an Ebola-affected area in the 21 days before illness onset. Initial Sepsis Screen: Does the patient meet any 2 criteria? No. Patient's initial sepsis screen is negative. Does the patient have a suspected source of infection? No. Patient's initial sepsis screen is negative. Risk Assessment: Do you want to hurt yourself or someone else? Patient reports no desire to harm self or others. Onset of symptoms was March 24, 2025. 09:34 Method Of Arrival: Ambulatory ll1 09:34 Acuity: JENISE 4 ll1 Historical: - Allergies: 09:27 No Known Allergies; ll1 - PMHx: 09:27 Hyperlipidemia; Hypertension; ll1 09:33 COPD; ll1 - PSHx: 09:27 neck; ll1 - Immunization history:: Adult Immunizations up to date. - Infectious Disease History:: Denies. - Social history:: Smoking status: Patient reports the use of cigarette tobacco products, cigars. Screenin:13 [facility] ED Fall Risk Assessment (Adult) History of falling in the last 3 months, ph including since admission Yes- single mechanical fall (1 pt) Confusion or Disorientation No (0 pts) Intoxicated or Sedated Yes (3 pts) Impaired Gait No (0 pts) Mobility Assist Device Used No (0 pt) Altered Elimination No (0 pt) Score/Fall Risk Level 0 - 2 = Low Risk Oriented to surroundings, Maintained a safe environment, Hourly rounding (assess needs \T\ fall precautionary measures) done, Used ambulatory aids as needed (educated on \T\ assisted with). Abuse screen: Denies threats or abuse. Denies injuries from another. Nutritional screening: No deficits noted. Tuberculosis screening: No symptoms or risk factors identified. Assessment: 10:12 General: Appears in no apparent distress. comfortable, Behavior is calm, cooperative. ph Pain: Complains of pain in low back area. Neuro: Level of Consciousness is awake, alert, obeys commands, Oriented to person, place, time, situation. Cardiovascular: Capillary refill < 3 seconds in bilateral fingers Patient's skin is warm and dry. Respiratory: Airway is patent Respiratory effort is even, unlabored. GI: No signs and/or symptoms were reported involving the gastrointestinal system. Derm: Skin is pink, warm \T\ dry. Musculoskeletal: Circulation, motion, and sensation intact. Range of motion: intact in all extremities. 12:00 Reassessment: Patient appears in no apparent distress at this time. Patient and/or ph family updated on plan of care and expected duration. Pain level reassessed. Patient is alert, oriented x 3, equal unlabored respirations, skin warm/dry/pink. Patient states symptoms have improved. Vital Signs: 09:34 Pulse 77; Resp 18; Temp 97.5; Pulse Ox 94% on R/A; Weight 106.59 kg; Height 6 ft. 4 in. ll1 ; Pain 7/10; 10:12 BP 110 / 74; Pulse 70; Resp 18; Pulse Ox 95% on R/A; Pain 6/10; ph 11:30 BP 117 / 72; Pulse 68; Resp 18; Pulse Ox 98% on R/A; ph 12:59 BP 108 / 76; Pulse 76; Resp 18; Temp 97.8; Pulse Ox 98% on R/A; ph 09:34 Body Mass Index 28.60 (106.59 kg, 193.04 cm) ll1 09:34 Pain Scale: Adult ll1 10:12 Pain Scale: Adult ph ED Course: 09:21 Patient arrived in ED. im 09:21 Marcio Samaniego MD is Attending Physician. pamela 09:27 Arm band placed on Patient placed in an exam room, on a stretcher. ll1 09:35 Triage completed. ll1 09:35 Lucero Melendez RN is Primary Nurse. ph 09:46 CT Chest Abdomen Pelvis W/O Contrast In Process Unspecified. EDMS 10:13 Initial lab(s) drawn, by me, sent to lab. Inserted saline lock: 22 gauge in right ph antecubital area, using aseptic technique. Blood collected. Flushed with 10 mL NS. 10:14 Patient has correct armband on for positive identification. Bed in low position. Call ph light in reach. Side rails up X 1. Pulse ox on. NIBP on. Door closed. Noise minimized. Pillow given. PO fluids given. 12:40 Lee Rivas MD is Referral Physician. [facility] 12:58 No provider procedures requiring assistance completed. IV discontinued, intact, ph bleeding controlled, No redness/swelling at site. Pressure dressing applied. Administered Medications: 10:11 Drug: NS 0.9% IV 1000 ml IV at 1000 ml once; to be given as a bolus over 60 minutes ph Route: IV; Rate: 1000 ml; Site: right antecubital; 11:15 Follow up: Response: No adverse reaction; IV Status: Completed infusion; IV Intake: ph 1000ml 10:11 Drug: Ketorolac IVP 30 mg IVP once Route: IVP; Site: right antecubital; ph 13:00 Follow up: Response: No adverse reaction ph 10:12 Drug: Diazepam PO 10 mg PO once Route: PO; ph 13:00 Follow up: Response: No adverse reaction ph 10:12 Drug: Decadron - Dexamethasone IVP 10 mg IVP once Route: IVP; Site: right antecubital; ph 13:00 Follow up: Response: No adverse reaction ph 10:12 Drug: Famotidine IVP 20 mg IVP once; dilute with 10 mL 0.9% NaCl; give over 2 minutes ph Route: IVP; Site: right antecubital; 13:00 Follow up: Response: No adverse reaction ph 10:44 Not Given (Patient Refused): morphineor iv 4 mg IVP once over 4 mins ph 10:44 Not Given (Patient Refused): ondansetron 8 mg IVP once; over 2 minutes ph Medication: 10:13 VIS not applicable for this client. ph Intake: 11:15 IV: 1000ml; Total: 1000ml. ph Outcome: 12:41 Discharge ordered by . pamela 12:58 Discharged to home ambulatory, ph 12:58 Condition: good 12:58 Discharge instructions given to patient, Instructed on discharge instructions, follow up and referral plans. medication usage, Demonstrated understanding of instructions, follow-up care, medications, Prescriptions given X 4, 13:01 Patient left the ED. ph Signatures: Dispatcher [employer] Marcio An MD MD cha Hall, Patricia, RN RN ph Ambrose Alvarez RN RN ll1 Tamra Lake
--- NOTE | 2025-03-26 12:42 | EDPHYS ---
Physician Documentation [facility] Name: Emory Lynn Age: 59 yrs Sex: Male : 1965 Arrival Date: 03/26/2025 Time: 09:17 Bed 5 Private MD: ED Physician Marcio Samaniego HPI: 03/26 12:35 This 59 yrs old Male presents to ER via Ambulatory with complaints of Back pamela Pain. 12:35 The patient presents with pain that is acute. The symptoms are located in the low back. pamela Onset: The symptoms/episode began/occurred 3 day(s) ago. The pain does not radiate. Associated signs and symptoms: The patient has no apparent associated signs or symptoms. The problem was sustained during a fall, while walking. Modifying factors: The patient symptoms are alleviated by remaining still, the patient symptoms are aggravated by any movement, bending. Modifying factors: The patient symptoms are alleviated by. Severity of symptoms: At their worst the symptoms were moderate, in the emergency department the symptoms have improved, moderately. The patient has experienced similar episodes in the past, several times. Historical: - Allergies: 09:27 No Known Allergies; ll1 - PMHx: 09:27 Hyperlipidemia; Hypertension; ll1 09:33 COPD; ll1 - PSHx: 09:27 neck; ll1 - Immunization history:: Adult Immunizations up to date. - Infectious Disease History:: Denies. - Social history:: Smoking status: Patient reports the use of cigarette tobacco products, cigars. ROS: 12:36 Constitutional: Negative for fever, chills, and weight loss, Eyes: Negative for injury, pamela pain, redness, and discharge, ENT: Negative for injury, pain, and discharge, Neck: Negative for injury, pain, and swelling, Cardiovascular: Negative for chest pain, palpitations, and edema, Respiratory: Negative for shortness of breath, cough, wheezing, and pleuritic chest pain, Abdomen/GI: Negative for abdominal pain, nausea, vomiting, diarrhea, and constipation, : Negative for injury, bleeding, discharge, and swelling, MS/Extremity: Negative for injury and deformity, Skin: Negative for injury, rash, and discoloration, Neuro: Negative for headache, weakness, numbness, tingling, and seizure, Psych: Negative for depression, anxiety, suicide ideation, homicidal ideation, and hallucinations, Allergy/Immunology: Negative for hives, rash, and allergies, Endocrine: Negative for neck swelling, polydipsia, polyuria, polyphagia, and marked weight changes, Hematologic/Lymphatic: Negative for swollen nodes, abnormal bleeding, and unusual bruising, 12:36 Back: Positive for injury or acute deformity, pain with movement, Exam: 12:36 Constitutional: This is a well developed, well nourished patient who is awake, alert, pamela and in no acute distress. Head/Face: Normocephalic, atraumatic. Eyes: Pupils equal round and reactive to light, extra-ocular motions intact. Lids and lashes normal. Conjunctiva and sclera are non-icteric and not injected. Cornea within normal limits. Periorbital areas with no swelling, redness, or edema. ENT: Nares patent. No nasal discharge, no septal abnormalities noted. Tympanic membranes are normal and external auditory canals are clear. Oropharynx with no redness, swelling, or masses, exudates, or evidence of obstruction, uvula midline. Mucous membranes moist. Neck: Trachea midline, no thyromegaly or masses palpated, and no cervical lymphadenopathy. Supple, full range of motion without nuchal rigidity, or vertebral point tenderness. No Meningismus. Chest/axilla: Normal chest wall appearance and motion. Nontender with no deformity. No lesions are appreciated. Cardiovascular: Regular rate and rhythm with a normal S1 and S2. No gallops, murmurs, or rubs. Normal PMI, no JVD. No pulse deficits. Respiratory: Lungs have equal breath sounds bilaterally, clear to auscultation and percussion. No rales, rhonchi or wheezes noted. No increased work of breathing, no retractions or nasal flaring. Abdomen/GI: Soft, non-tender, with normal bowel sounds. No distension or tympany. No guarding or rebound. No evidence of tenderness throughout. Male : Normal genitalia with no discharge or lesions. Skin: Warm, dry with normal turgor. Normal color with no rashes, no lesions, and no evidence of cellulitis. MS/ Extremity: Pulses equal, no cyanosis. Neurovascular intact. Full, normal range of motion., bilateral aka Neuro: Awake and alert, GCS 15, oriented to person, place, time, and situation. Cranial nerves II-XII grossly intact. Motor strength 5/5 in all extremities. Sensory grossly intact. Cerebellar exam normal. Normal gait. Psych: Awake, alert, with orientation to person, place and time. Behavior, mood, and affect are within normal limits. 12:36 Back: pain, that is mild, that is moderate, ROM is painful, with flexion, with extension, normal spinal alignment noted, CVA tenderness, is absent, vertebral tenderness, is not appreciated, muscle spasm, is appreciated in the left low back, left mid back, right mid back and right low back, Vital Signs: 09:34 Pulse 77; Resp 18; Temp 97.5; Pulse Ox 94% on R/A; Weight 106.59 kg; Height 6 ft. 4 in. ll1 ; Pain 7/10; 10:12 BP 110 / 74; Pulse 70; Resp 18; Pulse Ox 95% on R/A; Pain 6/10; ph 11:30 BP 117 / 72; Pulse 68; Resp 18; Pulse Ox 98% on R/A; ph 12:59 BP 108 / 76; Pulse 76; Resp 18; Temp 97.8; Pulse Ox 98% on R/A; ph 09:34 Body Mass Index 28.60 (106.59 kg, 193.04 cm) ll1 09:34 Pain Scale: Adult ll1 10:12 Pain Scale: Adult ph MDM: 09:21 Medical Screening Exam initiated apmela 12:37 Differential diagnosis: chronic back pain, Fatigue Fracture Ligament Injury pamela Osteoarthritis Osteoporosis ruptured disc, Scoliosis spinal injury, sprain. Data reviewed: vital signs, nurses notes, lab test result(s), radiologic studies, CT scan. 03/26 09:22 Order name: CBC with Diff; Complete Time: 11:55 [facility] 03/26 09:22 Order name: CMP; Complete Time: 11:55 [facility] 03/26 09:22 Order name: UA Rfx Duncan Cult if indicated; Complete Time: 12:45 [facility] 03/26 09:35 Order name: CT Chest Abdomen Pelvis W/O Contrast; Complete Time: 11:55 [facility] Administered Medications: 10:11 Drug: NS 0.9% IV 1000 ml IV at 1000 ml once; to be given as a bolus over 60 minutes ph Route: IV; Rate: 1000 ml; Site: right antecubital; 11:15 Follow up: Response: No adverse reaction; IV Status: Completed infusion; IV Intake: ph 1000ml 10:11 Drug: Ketorolac IVP 30 mg IVP once Route: IVP; Site: right antecubital; ph 13:00 Follow up: Response: No adverse reaction ph 10:12 Drug: Diazepam PO 10 mg PO once Route: PO; ph 13:00 Follow up: Response: No adverse reaction ph 10:12 Drug: Decadron - Dexamethasone IVP 10 mg IVP once Route: IVP; Site: right antecubital; ph 13:00 Follow up: Response: No adverse reaction ph 10:12 Drug: Famotidine IVP 20 mg IVP once; dilute with 10 mL 0.9% NaCl; give over 2 minutes ph Route: IVP; Site: right antecubital; 13:00 Follow up: Response: No adverse reaction ph 10:44 Not Given (Patient Refused): morphineor iv 4 mg IVP once over 4 mins ph 10:44 Not Given (Patient Refused): ondansetron 8 mg IVP once; over 2 minutes ph Disposition Summary: 03/26/25 12:41 Discharge Ordered Notes: Location: Home pamela Problem: new pamela Symptoms: have improved pamela Condition: Stable pamela Diagnosis - Fall on same level, unspecified pamela - Fracture of lumbar vertebra - L2 SUPERIOR END PLATE LESS THAN 20% pamela - Wedge compression fracture of unspecified lumbar vertebra pamela Followup: pamela - With: Private Physician - When: 2 - 3 days - Reason: Recheck today's complaints, Continuance of care, Re-evaluation by your physician Followup: pamela - With: Lee Rivas MD - When: 2 - 3 days - Reason: Recheck today's complaints, Re-evaluation by your physician Discharge Instructions: - Spinal Compression Fracture pamela - Lumbar Spine Fracture pamela - Discharge Summary Sheet ll1 Forms: - Medication Reconciliation Form pamela - Antibiotic Education pamela - Prescription Opioid Use pamela - Patient Portal Instructions [facility] - Leadership Thank You Letter pamela - Work release form ll1 Prescriptions: - diclofenac sodium 50 mg Oral tablet, delayed release (enteric coated) - take 1 tablet ORAL route 3 times per day; 21 tablet; Refills: 0, Product pamela Selection Permitted - methocarbamol 750 mg Oral tablet - take 1 tablet ORAL route 4 times per day; 28 tablet; Refills: 0, Product pamela Selection Permitted - Tylenol-Codeine #3 300mg-30mg Oral tablet - take 2 tablets ORAL route every 6 hours As needed; 16 tablet; Refills: 0, [facility] Product Selection Permitted - Dexamethasone 4mg Oral tablet - take 1 tablet ORAL route daily for 3 days; 3 tablet; Refills: 0, Product [facility] Selection Permitted Signatures: Dispatcher [employer] Marcio An MD MD cha Hall, Patricia, RN RN ph Antonio, Ambrose RN RN ll1 Corrections: (The following items were deleted from the chart) 09: CBC+H.LAB.BRZ ordered. EDMS EDMS 09:23 COMPREHENSIVE METABOLIC PANEL+C.LAB.BRZ ordered. EDMS EDMS : UA Rfx Duncan Cult if indicated+U.LAB.BRZ ordered. EDMS EDMS
[2025-03-26 19:30] VITALS: O2SAT 98
[2025-03-26 19:32] VITALS: BP 108/76; TEMP 97.8
== END 2025-03-26 13:01 | disposition home or self-care (01) ==
LOC: ER 09:17
DX: S32.000A Wedge compression fracture of unspecified lumbar vertebra, initial encounter for closed fracture (principal); S32.029A Unspecified fracture of second lumbar vertebra, initial encounter for closed fracture; W18.30XA Fall on same level, unspecified, initial encounter; I10 Essential (primary) hypertension; J44.9 Chronic obstructive pulmonary disease, unspecified; E78.5 Hyperlipidemia, unspecified
CPT/HCPCS: 96361; 85025; 36415; 81003; 80053; 71250; 74176; 96375; 96374; 99284; J1100; J7030; J2405